=== PATIENT | female | born 1960 | race Caucasian/White ===

== ENCOUNTER 2016-08-18 12:05 | Outpatient (CLI) | payer BC ==
[~2016-08-18] VITALS: Ht 162.6 cm; Wt 110.2 kg
--- OUTSIDE RECORDS SUMMARY | 2016-08-18 12:08 | XMS REPORT | Continuity of Care Document ---
Author Author [facility] Organization [facility] Address Unknown Phone Unavailable Care Team Providers Care Financial Accountant Name Role Phone Asher Tinsley PCP [phone] Source Comments Some departments are not documenting in the electronic medical record. If you do not see the information that you expected, contact Release of Information in the Health Information Management department at [phone] for further assistance in locating additional records.[facility] Active Allergies and Adverse Reactions No Known Allergies Current Medications Prescription Sig. Disp. Refills Start End Date Status Date furosemide (LASIX) 40 mg Take 40 mg by mouth every Active tablet 12 hours. Indications: EDEMA lisinopril/hydrochlorothi Take by mouth daily. Active azide (ZESTORETIC) Indications: HTN/CHF 20/12.[address](+) Take 40 mg by mouth Active (PRILOSEC) 40 mg capsule daily. Indications: PREVENTION OF STRESS ULCER aspirin 81 mg chewable Take 324 mg by mouth Active tablet daily. Indications: PREVENTION OF TRANSIENT ISCHEMIC ATTACKS diltiazem CD (CARDIZEM Take 360 mg by mouth Active CD) 120 mg capsule daily. Indications: HYPERTENSION potassium chloride SR Take 20 mEq by mouth Active (K-DUR) 20 mEq tablet twice daily. Indications: HYPOKALEMIA PREVENTION sertraline (ZOLOFT) 50 mg Take 1 Tab by mouth 30 Tab 0 05/16/20 Active tablet daily. 15 traZODone (DESYREL) 50 mg Take 1 Tab by mouth at 30 Tab 1 05/16/20 Active tablet bedtime daily. 15 Active Problems Problem Noted Date Mood disorder (HCC) 05/09/2015 Social History Tobacco Use Types Packs/Day Years Used Date Never Smoker Alcohol Use Drinks/Week oz/Week Comments No Last Filed Vital Signs Vital Sign Reading Time Taken Blood Pressure 131/81 05/16/2015 8:00 AM VICE PRESIDENT OF CONSULTING SERVICES Pulse 62 05/16/2015 8:00 AM VICE PRESIDENT OF CONSULTING SERVICES Temperature 37 C (98.6 F) 05/16/2015 8:00 AM VICE PRESIDENT OF CONSULTING SERVICES Respiratory Rate - - Height 1.59 m (5' 2.6") 05/09/2015 8:00 PM CDT Weight 86.1 kg (189 lb 13.1 oz) 05/09/2015 8:00 PM CDT Body Mass Index 34.06 05/09/2015 8:00 PM CDT Oxygen Saturation 98% 05/16/2015 8:00 AM VICE PRESIDENT OF CONSULTING SERVICES Plan of Care Health Maintenance Due Date Last Done Comments Hepatitis C Screening 1959 Physical (Comprehensive) 1966 Exam Pertussis Vaccine 1970 Tetanus Vaccine 1976 Cervical Cancer Screening 1980 Breast Cancer Screening 1999 Colorectal Cancer 2009 Screening Influenza Vaccine 03/13/2016 Results from Last 3 Months Not on file
[2016-08-18] MEDS ORDERED: ASPI-586 PO (12:18)
[2016-08-18] MEDS ORDERED: SPIR25TA3 PO (12:18)
[2016-08-18] MEDS ORDERED: TRAZ-28 PO (12:18)
[2016-08-18] MEDS ORDERED: SERT100T8 PO (12:18)
[2016-08-18] MEDS ORDERED: LISI1TAB8 PO (12:18)
[2016-08-18] MEDS ORDERED: FURO40TA4 PO (12:18)
[2016-08-18] MEDS ORDERED: APIX5TAB PO (12:18)
[2016-08-18] MEDS ORDERED: OMEP40CA36 PO (12:18)
[2016-08-18] MEDS ORDERED: DILT360C29 PO (12:18)
[2016-08-18] MEDS ORDERED: CYCL5TAB PO (12:18)
[2016-08-18 12:22] VITALS: BP 122/41
[2016-08-18 13:07] LABS: BASOPHILS % (AUTO) 0 % (0-10); EOSINOPHILS # (AUTO) 0.2 10^3/uL (0.0-0.3); EOSINOPHILS % (AUTO) 2 % (0-10); LYMPHOCYTES # (AUTO) 0.9 X 10^3 (1.0-4.0); LYMPHOCYTES % (AUTO) 11 % (12-44); MEAN CORPUSCULAR HEMOGLOBIN 29 PG (25-34); MEAN CORPUSCULAR HGB CONC 33 G/DL (32-36); MEAN CORPUSCULAR VOLUME 90 FL (80-99); MEAN PLATELET VOLUME 10.5 FL (7.4-10.4); MONOCYTES # (AUTO) 0.6 X 10^3 (0.0-1.0); MONOCYTES % (AUTO) 7 % (0-12); NEUTROPHILS # (AUTO) 6.6 X 10^3 (1.8-7.8); NEUTROPHILS % (AUTO) 79 % (42-75); PLATELET COUNT 243 10^3/uL (130-400); RED BLOOD COUNT 3.98 10^6/uL (4.35-5.85); WHITE BLOOD COUNT 8.3 10^3/uL (4.3-11.0)
[2016-08-18 13:25] LABS: CALCIUM 9.1 MG/DL (8.5-10.1); CREATININE SERUM 1.53 MG/DL (0.60-1.30)
== END 2016-08-18 13:39 | disposition home or self-care (01) ==
LOC: PREOP 12:05
PROVIDERS: ATTEND Otolaryngology Otolaryngology/Facial Plastic Surgery
DX: Z01.812 Encounter for preprocedural laboratory examination (principal); Z11.2 Encounter for screening for other bacterial diseases; E04.1 Nontoxic single thyroid nodule
CPT/HCPCS: 36415; 80048; 85025; 87081

== ENCOUNTER 2016-08-29 06:25 | Day surgery (SDC) | payer BC ==
[~2016-08-29] VITALS: Ht 162.6 cm; Wt 110.2 kg
[~2016-08-29 06:25] MED LIST: APIX5TAB PO; ASPI-586 PO; CYCL5TAB PO; DILT360C29 PO; FURO40TA4 PO; LISI1TAB8 PO; OMEP40CA36 PO; SERT100T8 PO; SPIR25TA3 PO; TRAZ-28 PO
--- OUTSIDE RECORDS SUMMARY | 2016-08-29 06:32 | XMS REPORT | Continuity of Care Document ---
Author Author [facility] Organization [facility] Address Unknown Phone Unavailable Care Team Providers Care Boot And Shoe Laborer Name Role Phone Asher Tinsley PCP [phone] Source Comments Some departments are not documenting in the electronic medical record. If you do not see the information that you expected, contact Release of Information in the Health Information Management department at [phone] for further assistance in locating additional records.[facility] Active Allergies and Adverse Reactions No [...] Taken Blood Pressure 131/81 05/16/2015 8:00 AM DOCUMENT EXAMINER Pulse 62 05/16/2015 8:00 AM DOCUMENT EXAMINER Temperature 37 C (98.6 F) 05/16/2015 8:00 AM DOCUMENT EXAMINER Respiratory Rate - - Height 1.59 m (5' 2.6") 05/09/2015 8:00 PM CDT Weight 86.1 kg (189 lb 13.1 oz) 05/09/2015 8:00 PM CDT Body Mass Index 34.06 05/09/2015 8:00 PM CDT Oxygen Saturation 98% 05/16/2015 8:00 AM DOCUMENT EXAMINER Plan of Care Health Maintenance Due Date Last Done Comments Hepatitis C Screening 1959 Physical (Comprehensive) 1966 Exam Pertussis Vaccine 1970 Tetanus Vaccine 1976 Cervical Cancer Screening 1980 Breast Cancer Screening 1999 Colorectal Cancer 2009 Screening Influenza Vaccine 03/13/2016 Results from Last 3 Months Not on file
--- OUTSIDE RECORDS SUMMARY | 2016-08-29 06:34 | XMS REPORT | Continuity of Care Document ---
Author Author [facility] Organization [facility] Address Unknown Phone Unavailable Care Team Providers Care Caustic Strength Inspector Name Role Phone Asher Tinsley PCP [phone] Source Comments Some departments are not documenting in the electronic medical record. If you do not see the information that you expected, contact Release of Information in the Health Information Management department at [phone] for further assistance in locating additional records.[facility] Active Allergies and Adverse Reactions No [...] Taken Blood Pressure 131/81 05/16/2015 8:00 AM GEAR GRINDING MACHINE OPERATOR Pulse 62 05/16/2015 8:00 AM GEAR GRINDING MACHINE OPERATOR Temperature 37 C (98.6 F) 05/16/2015 8:00 AM GEAR GRINDING MACHINE OPERATOR Respiratory Rate - - Height 1.59 m (5' 2.6") 05/09/2015 8:00 PM CDT Weight 86.1 kg (189 lb 13.1 oz) 05/09/2015 8:00 PM CDT Body Mass Index 34.06 05/09/2015 8:00 PM CDT Oxygen Saturation 98% 05/16/2015 8:00 AM GEAR GRINDING MACHINE OPERATOR Plan of Care Health Maintenance Due Date Last Done Comments Hepatitis C Screening 1959 Physical (Comprehensive) 1966 Exam Pertussis Vaccine 1970 Tetanus Vaccine 1976 Cervical Cancer Screening 1980 Breast Cancer Screening 1999 Colorectal Cancer 2009 Screening Influenza Vaccine 03/13/2016 Results from Last 3 Months Not on file
--- NOTE | 2016-08-29 06:41 | Progress Note-Pre Operative ---
Pre-Operative Progress Note H&P Reviewed The H&P was reviewed, patient examined and no changes noted. Date H&P Reviewed: Aug 29, 2016 Time H&P Reviewed: 06:40 Pre-Operative Diagnosis: Left Thyroid Nodule MARIANNE MAC MD Aug 29, 2016 6:41 am
[2016-08-29 07:01] VITALS: BP 127/71
[2016-08-29] MEDS ORDERED: MIDAZOLAM 2 MG/2 ML (VERSED) VIAL ONE ×2 (07:08→08:24)
[2016-08-29] MEDS ORDERED: SCOPOLAMINE 1.5 MG (TRANSDERM-SCOP) PATCH ONE (07:09)
[2016-08-29] MEDS ORDERED: ONDANSETRON 4 MG/2 ML (SDV) Z0FRAN ONE ×2 (07:09→08:29)
[2016-08-29] MEDS ORDERED: FAMOTIDINE 20MG/2ML IV (PEPCID) ONE (07:09)
[2016-08-29] MEDS: LACTATED RINGERS 1,000 ML IV PRN ×2 (07:14→09:55)
[2016-08-29] MEDS ORDERED: SCOPOLAMINE 1.5 MG (TRANSDERM-SCOP) PATCH TOP ONE (07:15)
[2016-08-29] MEDS ORDERED: MIDAZOLAM 2 MG/2 ML (VERSED) VIAL IV ONE (07:15)
[2016-08-29] MEDS ORDERED: FAMOTIDINE 20MG/2ML IV (PEPCID) IV ONE (07:15)
[2016-08-29] MEDS ORDERED: ONDANSETRON 4 MG/2 ML (SDV) Z0FRAN IV ONE ×2 (07:15→11:00)
[2016-08-29] MEDS ORDERED: fentaNYL INJECTION 100 MCG/2 ML AMP ONE ×2 (08:24→09:49)
[2016-08-29] MEDS ORDERED: LIDOCAINE PF 2% 10 ML (XYLOCAINE) AMP ONE (08:29)
[2016-08-29] MEDS ORDERED: proPOfol 200 MG/20 ML (DIPRIVAN) VIAL IV ONE ×2 (08:29→10:49)
[2016-08-29] MEDS ORDERED: LACTATED RINGERS 1,000 ML IV ONE ×2 (08:29→11:02)
[2016-08-29] MEDS ORDERED: SUCCINYLCHOLINE INJ 100 MG/5 ML SYR ONE (08:29)
[2016-08-29] MEDS ORDERED: DEXAMETHASONE PF 10 MG/ML (DECADRON) VIAL ONE (08:29)
[2016-08-29] MEDS ORDERED: LIDOCAINE/EPI 1%-1:100,000 (XYLOCAINE) 20ML ONE (08:33)
[2016-08-29] MEDS ORDERED: ROCURONIUM 50 MG/5 ML (ZEMURON) VIAL IV ONE (08:42)
[2016-08-29] MEDS ORDERED: morphine INJ 10 MG/ML 1ML (SYR OR VIAL) ONE (10:22)
[2016-08-29] MEDS ORDERED: MUPIROCIN 2% OINT 22 GM (BACTROBAN) TUBE ONE (10:41)
[2016-08-29] MEDS ORDERED: D5 1/2 NS W/KCL 20 MEQ/L 1,000 ML IV SCH (10:44)
--- NOTE | 2016-08-29 10:44 | Progress Note-Post Operative ---
Post-Operative Progess Note Pre-Operative Diagnosis Left Thyroid Nodule Post-Operative Diagnosis same Post-Op Procedure Note Date of Procedure: Aug 29, 2016 Name of Procedure: Left Thyroid Lobectomy Anesthesia Type get Estimated blood loss (mL): minimal Specimen(s) collected Left Thryoid Lobectomey-frozen no malignancy seen on frozen MARIANNE MAC MD Aug 29, 2016 10:44 am
[2016-08-29] MEDS ORDERED: MEPERIDINE (DEMEROL) INJ 50 MG/ML IM PRN (10:45)
[2016-08-29] MEDS ORDERED: ACETAMINOPHEN 500 MG TAB (TYLENOL) PO PRN (10:45)
[2016-08-29] MEDS ORDERED: ONDANSETRON 4 MG/2 ML (SDV) Z0FRAN IV PRN (10:45)
[2016-08-29] MEDS ORDERED: SEVOFLURANE (ULTANE) 15 ML INHAL SOLN ONE (10:48)
[2016-08-29] MEDS ORDERED: PHENYLEPHRINE 100 MCG/ML 10 ML (ANESTHESIA) SYR ONE (10:50)
[2016-08-29] MEDS ORDERED: fentaNYL INJECTION 100 MCG/2 ML AMP IV PRN (11:00)
[2016-08-29] MEDS: morphine INJ 10 MG/ML 1ML (SYR OR VIAL) IV PRN ×2 (11:25→11:30)
[2016-08-29 13:00] VITALS: BP 120/74
[2016-08-29 15:40] VITALS: BP 108/59
[2016-08-29 19:34] VITALS: BP 113/66
[2016-08-29] MEDS: HYDROcodone/APAP 5 MG/325 MG (LORTAB) TAB PO PRN (22:58)
[2016-08-30] VITALS: BP 124/61
[2016-08-30 04:00] VITALS: BP 104/53
--- NOTE | 2016-08-30 06:11 | Progress Note-Standard ---
Standard Progress Note Progress Notes/Assess & Plan Progress/Assessment & Plan ENT-Onesimo Doing Well Drain dc'ed-minimal drainage Calcium-98.5 voice normal/ swallowing without difficulty Will discharge after [id number] week ft [facility] Discharge prescriptions in chart Final Diagnosis Left Thyroid Lobectomy-pathology pending MARIANNE MAC MD Aug 30, 2016 6:11 am
[2016-08-30] MEDS: HYDROcodone/APAP 5 MG/325 MG (LORTAB) TAB PO PRN (07:52)
[2016-08-30 08:00] VITALS: BP 121/58
[2016-08-30] MEDS ORDERED: HYDR-3812 PO (10:06)
[2016-08-30 10:33] VITALS: BP 121/58
== END 2016-08-30 10:39 | disposition home or self-care (01) ==
LOC: SDC 06:25 → 4TH 13:25 → SDC 08-30 10:39
PROVIDERS: ATTEND Otolaryngology Otolaryngology/Facial Plastic Surgery
DX: C73 Malignant neoplasm of thyroid gland (principal)
CPT/HCPCS: 36415; 82310; 88307; 88331

== ENCOUNTER 2016-09-12 10:00 | Outpatient (CLI) | payer BC ==
--- OUTSIDE RECORDS SUMMARY | 2016-09-11 05:54 | XMS REPORT | Continuity of Care Document ---
Author Author [facility] Organization [facility] Address Unknown Phone Unavailable Care Team Providers Care Inspector Radar And Electronics Name Role Phone Asher Tinsley PCP [phone] Source Comments Some departments are not documenting in the electronic medical record. If you do not see the information that you expected, contact Release of Information in the Health Information Management department at [phone] for further assistance in locating additional records.St. [...] Taken Blood Pressure 131/81 05/16/2015 8:00 AM PERFORMANCE IMPROVEMENT ANALYST Pulse 62 05/16/2015 8:00 AM PERFORMANCE IMPROVEMENT ANALYST Temperature 37 C (98.6 F) 05/16/2015 8:00 AM PERFORMANCE IMPROVEMENT ANALYST Respiratory Rate - - Height 1.59 m (5' 2.6") 05/09/2015 8:00 PM CDT Weight 86.1 kg (189 lb 13.1 oz) 05/09/2015 8:00 PM CDT Body Mass Index 34.06 05/09/2015 8:00 PM CDT Oxygen Saturation 98% 05/16/2015 8:00 AM PERFORMANCE IMPROVEMENT ANALYST Plan of Care Health Maintenance Due Date Last Done Comments Hepatitis C Screening 1959 Physical (Comprehensive) 1966 Exam Pertussis Vaccine 1970 Tetanus Vaccine 1976 Cervical Cancer Screening 1980 Breast Cancer Screening 1999 Colorectal Cancer 2009 Screening Influenza Vaccine 03/13/2016 Results from Last 3 Months Not on file
[~2016-09-12] VITALS: Ht 162.6 cm; Wt 110.2 kg
[~2016-09-12 10:00] MED LIST changes: +HYDR-3812 PO
--- OUTSIDE RECORDS SUMMARY | 2016-09-12 10:06 | XMS REPORT | Continuity of Care Document ---
Author Author [facility] Organization [facility] Address Unknown Phone Unavailable Care Team Providers Care Dyed Raw Stock Blower Feeder Name Role Phone Asher Tinsley PCP [phone] Source Comments Some departments are not documenting in the electronic medical record. If you do not see the information that you expected, contact Release of Information in the Health Information Management department at [phone] for further assistance in locating additional records.[facility] Active Allergies and Adverse Reactions No Known [...] Taken Blood Pressure 131/81 05/16/2015 8:00 AM DIRECTOR APPAREL Pulse 62 05/16/2015 8:00 AM DIRECTOR APPAREL Temperature 37 C (98.6 F) 05/16/2015 8:00 AM DIRECTOR APPAREL Respiratory Rate - - Height 1.59 m (5' 2.6") 05/09/2015 8:00 PM CDT Weight 86.1 kg (189 lb 13.1 oz) 05/09/2015 8:00 PM CDT Body Mass Index 34.06 05/09/2015 8:00 PM CDT Oxygen Saturation 98% 05/16/2015 8:00 AM DIRECTOR APPAREL Plan of Care Health Maintenance Due Date Last Done Comments Hepatitis C Screening 1959 Physical (Comprehensive) 1966 Exam Pertussis Vaccine 1970 Tetanus Vaccine 1976 Cervical Cancer Screening 1980 Breast Cancer Screening 1999 Colorectal Cancer 2009 Screening Influenza Vaccine 03/13/2016 Results from Last 3 Months Not on file
== END 2016-09-12 10:12 ==
LOC: PREOP 10:00
PROVIDERS: ATTEND Otolaryngology Otolaryngology/Facial Plastic Surgery
DX: Z01.818 Encounter for other preprocedural examination (principal); E04.1 Nontoxic single thyroid nodule

== ENCOUNTER 2016-09-18 06:47 | Day surgery (SDC) | payer BC ==
[~2016-09-18] VITALS: Ht 162.6 cm; Wt 110.2 kg
--- OUTSIDE RECORDS SUMMARY | 2016-09-18 06:50 | XMS REPORT | Continuity of Care Document ---
Author Author [facility] Organization [facility] Address Unknown Phone Unavailable Care Team Providers Care Qc Manager Name Role Phone Asher Tinsley PCP [phone] Source Comments Some departments are not documenting in the electronic medical record. If you do not see the information that you expected, contact Release of Information in the Health Information Management department at [phone] for further assistance in locating additional records.[facility] Active Allergies and Adverse Reactions [...] Taken Blood Pressure 131/81 05/16/2015 8:00 AM SERGING MACHINE OPERATOR AUTOMATIC Pulse 62 05/16/2015 8:00 AM SERGING MACHINE OPERATOR AUTOMATIC Temperature 37 C (98.6 F) 05/16/2015 8:00 AM SERGING MACHINE OPERATOR AUTOMATIC Respiratory Rate - - Height 1.59 m (5' 2.6") 05/09/2015 8:00 PM CDT Weight 86.1 kg (189 lb 13.1 oz) 05/09/2015 8:00 PM CDT Body Mass Index 34.06 05/09/2015 8:00 PM CDT Oxygen Saturation 98% 05/16/2015 8:00 AM SERGING MACHINE OPERATOR AUTOMATIC Plan of Care Health Maintenance Due Date Last Done Comments Hepatitis C Screening 1959 Physical (Comprehensive) 1966 Exam Pertussis Vaccine 1970 Tetanus Vaccine 1976 Cervical Cancer Screening 1980 Breast Cancer Screening 1999 Colorectal Cancer 2009 Screening Influenza Vaccine 03/13/2016 Results from Last 3 Months Not on file
--- OUTSIDE RECORDS SUMMARY | 2016-09-18 06:50 | XMS REPORT | Continuity of Care Document ---
Author Author [facility] Organization [facility] Address Unknown Phone Unavailable Care Team Providers Care Neonatal Specialist Name Role Phone Asher Tinsley PCP [phone] Source Comments Some departments are not documenting in the electronic medical record. If you do not see the information that you expected, contact Release of Information in the Health Information Management department at [phone] for further assistance in locating additional records.[facility] Active Allergies and Adverse Reactions No [...] Taken Blood Pressure 131/81 05/16/2015 8:00 AM SUPERVISOR PRECISION OPTICAL ELEMENTS Pulse 62 05/16/2015 8:00 AM SUPERVISOR PRECISION OPTICAL ELEMENTS Temperature 37 C (98.6 F) 05/16/2015 8:00 AM SUPERVISOR PRECISION OPTICAL ELEMENTS Respiratory Rate - - Height 1.59 m (5' 2.6") 05/09/2015 8:00 PM CDT Weight 86.1 kg (189 lb 13.1 oz) 05/09/2015 8:00 PM CDT Body Mass Index 34.06 05/09/2015 8:00 PM CDT Oxygen Saturation 98% 05/16/2015 8:00 AM SUPERVISOR PRECISION OPTICAL ELEMENTS Plan of Care Health Maintenance Due Date Last Done Comments Hepatitis C Screening 1959 Physical (Comprehensive) 1966 Exam Pertussis Vaccine 1970 Tetanus Vaccine 1976 Cervical Cancer Screening 1980 Breast Cancer Screening 1999 Colorectal Cancer 2009 Screening Influenza Vaccine 03/13/2016 Results from Last 3 Months Not on file
[2016-09-18 08:03] VITALS: BP 144/81
[2016-09-18] MEDS ORDERED: LIDOCAINE/EPI 1%-1:100,000 (XYLOCAINE) 20ML ONE (08:17)
[2016-09-18] MEDS ORDERED: MUPIROCIN 2% OINT 22 GM (BACTROBAN) TUBE ONE (08:17)
[2016-09-18] MEDS ORDERED: MIDAZOLAM 2 MG/2 ML (VERSED) VIAL ONE (08:29)
[2016-09-18] MEDS ORDERED: MIDAZOLAM 2 MG/2 ML (VERSED) VIAL IV ONE (08:30)
[2016-09-18] MEDS ORDERED: ONDANSETRON 4 MG/2 ML (SDV) Z0FRAN IV ONE ×2 (08:30→11:15)
[2016-09-18] MEDS ORDERED: FAMOTIDINE 20MG/2ML IV (PEPCID) IV ONE (08:30)
[2016-09-18] MEDS ORDERED: SCOPOLAMINE 1.5 MG (TRANSDERM-SCOP) PATCH TOP ONE (08:30)
[2016-09-18] MEDS: LACTATED RINGERS 1,000 ML IV PRN ×2 (08:34→09:55)
[2016-09-18] MEDS ORDERED: proPOfol 200 MG/20 ML (DIPRIVAN) VIAL IV ONE ×2 (08:38→10:32)
[2016-09-18] MEDS ORDERED: SUCCINYLCHOLINE INJ 100 MG/5 ML SYR ONE (08:38)
[2016-09-18] MEDS ORDERED: ONDANSETRON 4 MG/2 ML (SDV) Z0FRAN ONE (08:38)
[2016-09-18] MEDS ORDERED: SEVOFLURANE (ULTANE) 15 ML INHAL SOLN ONE (08:38)
[2016-09-18] MEDS ORDERED: ROCURONIUM 50 MG/5 ML (ZEMURON) VIAL IV ONE (08:38)
[2016-09-18] MEDS ORDERED: DEXAMETHASONE PF 10 MG/ML (DECADRON) VIAL ONE (08:38)
[2016-09-18] MEDS ORDERED: LIDOCAINE PF 2% 10 ML (XYLOCAINE) AMP ONE (08:38)
[2016-09-18] MEDS ORDERED: LACTATED RINGERS 1,000 ML IV ONE ×2 (08:38→10:32)
[2016-09-18] MEDS ORDERED: fentaNYL INJECTION 250 MCG/5 ML AMP ONE (08:38)
--- NOTE | 2016-09-18 08:48 | Progress Note-Pre Operative ---
Pre-Operative Progress Note H&P Reviewed The H&P was reviewed, patient examined and no changes noted. Date H&P Reviewed: Sep 18, 2016 Time H&P Reviewed: 08:00 Pre-Operative Diagnosis: Papillary Carcinoma of Thyroid MARIANNE MAC MD Sep 18, 2016 8:48 am
[2016-09-18] MEDS ORDERED: morphine INJ 10 MG/ML 1ML (SYR OR VIAL) ONE (10:29)
[2016-09-18] MEDS ORDERED: PHENYLEPHRINE INJ 10 MG/ML (NEO-SYNEPHRINE 1%) ONE (10:32)
[2016-09-18] MEDS ORDERED: D5 1/2 NS W/KCL 20 MEQ/L 1,000 ML IV SCH (10:38)
--- NOTE | 2016-09-18 10:38 | Progress Note-Post Operative ---
Post-Operative Progess Note Pre-Operative Diagnosis Papillary Carcinoma of Thyroid Post-Operative Diagnosis same Post-Op Procedure Note Date of Procedure: Sep 18, 2016 Name of Procedure: Completion Thyroidectomy Anesthesia Type get Estimated blood loss (mL): less than 50cc Specimen(s) collected Right Thyriod Lobe and REmaining Isthmus MARIANNE MAC MD Sep 18, 2016 10:38 am
[2016-09-18] MEDS ORDERED: ONDANSETRON 4 MG/2 ML (SDV) Z0FRAN IV PRN (10:45)
[2016-09-18] MEDS ORDERED: ACETAMINOPHEN 500 MG TAB (TYLENOL) PO PRN (10:45)
[2016-09-18] MEDS ORDERED: HYDROmorphone (DILAUDID) 2 MG/ML VIAL IV PRN (11:15)
[2016-09-18] MEDS ORDERED: fentaNYL INJECTION 100 MCG/2 ML AMP IV PRN (11:15)
[2016-09-18] MEDS: morphine INJ 10 MG/ML 1ML (SYR OR VIAL) IV PRN ×2 (11:18→11:26)
[2016-09-18 11:55] VITALS: BP 136/85
[2016-09-18] MEDS: HYDROcodone/APAP 5 MG/325 MG (LORTAB) TAB PO PRN (12:13)
[2016-09-18] MEDS: MEPERIDINE (DEMEROL) INJ 50 MG/ML IM PRN ×2 (13:32→21:29)
[2016-09-18] MEDS ORDERED: APIX5TAB PO (13:51)
[2016-09-18] MEDS ORDERED: TRAZ100T92 PO (13:51)
[2016-09-18 16:33] VITALS: BP 120/79
--- NOTE | 2016-09-18 19:00 | Progress Note-Standard ---
Standard Progress Note Progress Notes/Assess & Plan Progress/Assessment & Plan ENT-Onesimo Doing well-voice normal/swallowing without difficulty Drain-minimal drainage Clcium-8.6 will observe toinght-plan on home in am after drain d/vick wii recheck calcium in am as well Final Diagnosis Papillary carcinoma of Thyroid MARIANNE MAC MD Sep 18, 2016 7:00 pm
[2016-09-18 20:00] VITALS: BP 146/85
[2016-09-19] MEDS: HYDROcodone/APAP 5 MG/325 MG (LORTAB) TAB PO PRN (00:43)
[2016-09-19 00:49] VITALS: BP 134/86
[2016-09-19 04:00] VITALS: BP 137/74
[2016-09-19] MEDS: MEPERIDINE (DEMEROL) INJ 50 MG/ML IM PRN (06:16)
--- NOTE | 2016-09-19 06:39 | Progress Note-Standard ---
Standard Progress Note Progress Notes/Assess & Plan Progress/Assessment & Plan ENT-Onesimo Doing well-voice normal/swallowing without difficulty Drain-minimal drainage Clcium-8.6 will observe toinght-plan on home in am after drain d/vick wii recheck calcium in am as well ENTMichele Doing well Minimal drainage drain dc'ed incision dry flat-no infection will discharge after breakfast RTC-next thrusday in [facility] for suture removal Discharge prescriptions in chart MARIANNE MAC MD Sep 19, 2016 6:39 am
[2016-09-19 08:00] VITALS: BP 143/85
== END 2016-09-19 11:04 | disposition home or self-care (01) ==
LOC: SDC 06:47 → 4TH 11:55 → SDC 09-19 11:04
PROVIDERS: ATTEND Otolaryngology Otolaryngology/Facial Plastic Surgery
DX: C73 Malignant neoplasm of thyroid gland (principal)
CPT/HCPCS: 36415; 82310; 88307

== ENCOUNTER → 2016-10-21 | Outpatient (CLI) | payer BC ==
[~2016-10-21] MED LIST changes: +TRAZ100T92 PO
== END ==
LOC: FS 13:49
PROVIDERS: ATTEND Internal Medicine Hematology & Oncology
DX: C73 Malignant neoplasm of thyroid gland (principal); I48.91 Unspecified atrial fibrillation; I10 Essential (primary) hypertension; E78.00 Pure hypercholesterolemia, unspecified; Z80.0 Family history of malignant neoplasm of digestive organs; Z80.1 Family history of malignant neoplasm of trachea, bronchus and lung; Z79.01 Long term (current) use of anticoagulants; Z79.899 Other long term (current) drug therapy
CPT/HCPCS: 99214

== ENCOUNTER 2016-12-02 14:02 | Outpatient (RCR) | payer BC ==
[2016-10-10 11:03] LABS: BASOPHILS % (AUTO) 0 % (0-10); EOSINOPHILS % (AUTO) 0 % (0-10); LYMPHOCYTES % (AUTO) 13 % (12-44); MEAN CORPUSCULAR HEMOGLOBIN 29 PG (25-34); MEAN CORPUSCULAR HGB CONC 32 G/DL (32-36); MEAN CORPUSCULAR VOLUME 90 FL (80-99); MEAN PLATELET VOLUME 10.7 FL (7.4-10.4); MONOCYTES # (AUTO) 0.4 X 10^3 (0.0-1.0); MONOCYTES % (AUTO) 5 % (0-12); NEUTROPHILS # (AUTO) 6.3 X 10^3 (1.8-7.8); NEUTROPHILS % (AUTO) 82 % (42-75); PLATELET COUNT 211 10^3/uL (130-400); RED BLOOD COUNT 4.02 10^6/uL (4.35-5.85); RED CELL DISTRIBUTION WIDTH 14.3 % (10.0-14.5); WHITE BLOOD COUNT 7.7 10^3/uL (4.3-11.0)
[2016-10-10 11:27] LABS: ALBUMIN 4.2 G/DL (3.2-4.5); BILIRUBIN,TOTAL 0.5 MG/DL (0.1-1.0); CALCIUM 9.4 MG/DL (8.5-10.1); CREATININE SERUM 1.61 MG/DL (0.60-1.30); POTASSIUM 4.2 MMOL/L (3.6-5.0); TOTAL PROTEIN 7.8 G/DL (6.4-8.2)
[2016-10-10 11:46] LABS: THYROID STIMULATING HORMONE 4.28 UIU/ML (0.35-4.94)
[2016-10-12 07:12] LABS: THYROGLOBULIN LEVELC 7.66 ng/mL (1.60-59.90)
[2016-10-13 16:32] LABS: THYROGLOBULIN AUTOANTIBODY PT 0.08 Units (0.00-0.50)
[2016-12-04 07:53] LABS: THYROGLOBULIN LEVELC 13.4 ng/mL (1.60-59.90)
[2016-12-04 07:54] LABS: THYROGLOBULIN AUTOANTIBODY PT 0.08 Units (0.00-0.50)
== END 2017-01-08 | disposition home or self-care (01) ==
LOC: ONC 14:02
PROVIDERS: ATTEND Internal Medicine Hematology & Oncology
DX: C73 Malignant neoplasm of thyroid gland (principal)
CPT/HCPCS: 36415; 80053; 84432; 84443; 85025; 86800; 99214

== ENCOUNTER → 2016-12-02 | Outpatient (CLI) | payer BC | LOC: CARD 12:51 | PROVIDERS: ATTEND Radiology Radiation Oncology | DX: C73 Malignant neoplasm of thyroid gland (principal) | CPT/HCPCS: 79005 ==

== ENCOUNTER → 2017-01-06 | Outpatient (CLI) | payer BC | LOC: FS 10:39 | PROVIDERS: ATTEND Internal Medicine Hematology & Oncology | DX: C73 Malignant neoplasm of thyroid gland (principal); I48.91 Unspecified atrial fibrillation; I10 Essential (primary) hypertension; E78.00 Pure hypercholesterolemia, unspecified; Z80.0 Family history of malignant neoplasm of digestive organs; Z80.1 Family history of malignant neoplasm of trachea, bronchus and lung; Z79.01 Long term (current) use of anticoagulants; Z79.899 Other long term (current) drug therapy | CPT/HCPCS: 99213 ==

== ENCOUNTER 2017-04-02 13:07 | Outpatient (RCR) | payer BC ==
[2017-04-02 13:57] LABS: BASOPHILS % (AUTO) 0 % (0-10); EOSINOPHILS # (AUTO) 0.2 10^3/uL (0.0-0.3); EOSINOPHILS % (AUTO) 3 % (0-10); LYMPHOCYTES # (AUTO) 0.8 X 10^3 (1.0-4.0); LYMPHOCYTES % (AUTO) 10 % (12-44); MEAN CORPUSCULAR HEMOGLOBIN 29 PG (25-34); MEAN CORPUSCULAR HGB CONC 32 G/DL (32-36); MEAN CORPUSCULAR VOLUME 93 FL (80-99); MEAN PLATELET VOLUME 9.2 FL (7.4-10.4); MONOCYTES # (AUTO) 0.5 X 10^3 (0.0-1.0); MONOCYTES % (AUTO) 6 % (0-12); NEUTROPHILS # (AUTO) 5.8 X 10^3 (1.8-7.8); NEUTROPHILS % (AUTO) 80 % (42-75); PLATELET COUNT 210 10^3/uL (130-400); RED BLOOD COUNT 3.67 10^6/uL (4.35-5.85); RED CELL DISTRIBUTION WIDTH 14.1 % (10.0-14.5); WHITE BLOOD COUNT 7.3 10^3/uL (4.3-11.0)
[2017-04-02 14:33] LABS: ALBUMIN 4.1 GM/DL (3.2-4.5); BILIRUBIN,TOTAL 0.4 MG/DL (0.1-1.0); CALCIUM 9.4 MG/DL (8.5-10.1); CREATININE SERUM 1.59 MG/DL (0.60-1.30); POTASSIUM 3.9 MMOL/L (3.6-5.0); TOTAL PROTEIN 7.6 GM/DL (6.4-8.2)
[2017-04-06 08:55] LABS: THYROGLOBULIN AUTOANTIBODY PT 0.02 Units (0.00-0.50)
[2017-04-07 07:34] LABS: THYROGLOBULIN LEVELC 0.3 ng/mL (1.60-59.90)
== END 2017-04-11 | disposition home or self-care (01) ==
LOC: ONC 13:07
PROVIDERS: ATTEND Internal Medicine Hematology & Oncology
DX: C73 Malignant neoplasm of thyroid gland (principal); I48.91 Unspecified atrial fibrillation; I10 Essential (primary) hypertension; E78.00 Pure hypercholesterolemia, unspecified; Z80.0 Family history of malignant neoplasm of digestive organs; Z80.1 Family history of malignant neoplasm of trachea, bronchus and lung; Z79.01 Long term (current) use of anticoagulants; Z79.899 Other long term (current) drug therapy
CPT/HCPCS: 36415; 80053; 84432; 85025; 86800; 99213

== ENCOUNTER 2017-06-30 12:39 | Outpatient (RCR) | payer BC ==
[~2017-06-30 12:39] MED LIST changes: +ACHD5005 PO; -HYDR-3812 PO
[2017-06-30 13:09] LABS: BASOPHILS % (AUTO) 0 % (0-10); EOSINOPHILS # (AUTO) 0.2 10^3/uL (0.0-0.3); EOSINOPHILS % (AUTO) 3 % (0-10); HEMATOCRIT 35 % (35-52); LYMPHOCYTES % (AUTO) 12 % (12-44); MEAN CORPUSCULAR HEMOGLOBIN 29 PG (25-34); MEAN CORPUSCULAR HGB CONC 31 G/DL (32-36); MEAN CORPUSCULAR VOLUME 92 FL (80-99); MONOCYTES # (AUTO) 0.4 X 10^3 (0.0-1.0); MONOCYTES % (AUTO) 5 % (0-12); NEUTROPHILS # (AUTO) 6.8 X 10^3 (1.8-7.8); NEUTROPHILS % (AUTO) 81 % (42-75); PLATELET COUNT 246 10^3/uL (130-400); RED BLOOD COUNT 3.81 10^6/uL (4.35-5.85); RED CELL DISTRIBUTION WIDTH 14.4 % (10.0-14.5); WHITE BLOOD COUNT 8.4 10^3/uL (4.3-11.0)
[2017-06-30 13:28] LABS: ALBUMIN 4.1 GM/DL (3.2-4.5); BILIRUBIN,TOTAL 0.2 MG/DL (0.1-1.0); CALCIUM 9.4 MG/DL (8.5-10.1); CREATININE SERUM 1.73 MG/DL (0.60-1.30); POTASSIUM 3.9 MMOL/L (3.6-5.0); TOTAL PROTEIN 7.4 GM/DL (6.4-8.2)
== END 2017-09-28 | disposition home or self-care (01) ==
LOC: ONC 12:39
PROVIDERS: ATTEND Internal Medicine Hematology & Oncology
DX: C73 Malignant neoplasm of thyroid gland (principal); I48.91 Unspecified atrial fibrillation; I10 Essential (primary) hypertension; E78.00 Pure hypercholesterolemia, unspecified; Z80.0 Family history of malignant neoplasm of digestive organs; Z80.1 Family history of malignant neoplasm of trachea, bronchus and lung; Z79.01 Long term (current) use of anticoagulants; Z79.899 Other long term (current) drug therapy
CPT/HCPCS: 36415; 80053; 84432; 84443; 85025; 99213

== ENCOUNTER 2017-10-05 12:25 | Outpatient (RCR) | payer OTHER, BC ==
[2017-10-05 12:50] LABS: BASOPHILS % (AUTO) 0 % (0-10); EOSINOPHILS # (AUTO) 0.2 10^3/uL (0.0-0.3); EOSINOPHILS % (AUTO) 3 % (0-10); HEMATOCRIT 35 % (35-52); LYMPHOCYTES # (AUTO) 0.6 X 10^3 (1.0-4.0); LYMPHOCYTES % (AUTO) 8 % (12-44); MEAN CORPUSCULAR HEMOGLOBIN 29 PG (25-34); MEAN CORPUSCULAR HGB CONC 32 G/DL (32-36); MEAN CORPUSCULAR VOLUME 92 FL (80-99); MEAN PLATELET VOLUME 10.4 FL (7.4-10.4); MONOCYTES # (AUTO) 0.5 X 10^3 (0.0-1.0); MONOCYTES % (AUTO) 7 % (0-12); NEUTROPHILS % (AUTO) 81 % (42-75); PLATELET COUNT 174 10^3/uL (130-400); RED BLOOD COUNT 3.77 10^6/uL (4.35-5.85); RED CELL DISTRIBUTION WIDTH 14.2 % (10.0-14.5); WHITE BLOOD COUNT 7.4 10^3/uL (4.3-11.0)
[2017-10-05 13:22] LABS: BILIRUBIN,TOTAL 0.4 MG/DL (0.1-1.0); CALCIUM 8.7 MG/DL (8.5-10.1); CREATININE SERUM 1.3 MG/DL (0.60-1.30); POTASSIUM 3.9 MMOL/L (3.6-5.0); TOTAL PROTEIN 6.8 GM/DL (6.4-8.2)
[2017-10-23] MEDS ORDERED: DILT180C90 PO (14:17)
[2017-10-23] MEDS ORDERED: LEVO175T5 PO (14:17)
[2017-10-23] MEDS ORDERED: METO200T48 PO (14:17)
[2017-10-23] MEDS ORDERED: ASPI-586 PO (14:17)
[2017-10-23] MEDS ORDERED: DABI150C5 PO (15:18)
[2017-12-22] MEDS ORDERED: METO-395 PO (17:59)
== END 2017-12-30 14:43 | disposition home or self-care (01) ==
LOC: ONC 12:25
PROVIDERS: ATTEND Internal Medicine Hematology & Oncology
DX: C73 Malignant neoplasm of thyroid gland (principal); I48.91 Unspecified atrial fibrillation; I10 Essential (primary) hypertension; E78.00 Pure hypercholesterolemia, unspecified; Z80.0 Family history of malignant neoplasm of digestive organs; Z80.1 Family history of malignant neoplasm of trachea, bronchus and lung; Z79.01 Long term (current) use of anticoagulants; Z79.899 Other long term (current) drug therapy
CPT/HCPCS: 80053; 84432; 84443; 85025; 99213

== ENCOUNTER → 2017-10-07 | Outpatient (CLI) | payer SELFPAY | LOC: CARD 11:28 | PROVIDERS: ATTEND Nurse Practitioner Family | DX: I48.0 Paroxysmal atrial fibrillation (principal); R00.2 Palpitations; I10 Essential (primary) hypertension; R53.1 Weakness; R53.83 Other fatigue; E66.01 Morbid (severe) obesity due to excess calories | CPT/HCPCS: 93225; 93226 ==

== ENCOUNTER 2017-10-23 12:41 | Day surgery (SDC) | payer OTHER ==
[~2017-10-23] VITALS: Ht 162.6 cm; Wt 115.9 kg
[2017-10-23] VITALS (15 sets, daily range): BP systolic 115–193; BP diastolic 54–110
[~2017-10-23 12:41] MED LIST changes: -SPIR25TA3 PO; +SPIR25TA5 PO; +TRAZ-189 PO; +TRAZ-190 PO; -TRAZ-28 PO; -TRAZ100T92 PO
[2017-10-23] MEDS ORDERED: NS IV 1000 ML 1,000 ML IV SCH ×2 (13:05→13:15)
[2017-10-23] MEDS ORDERED: HEParin (CATH LAB) 2,000 ML IV ONE (13:10)
[2017-10-23 13:31] LABS: HEMOGLOBIN 11.8 G/DL (11.5-16.0); MEAN PLATELET VOLUME 10.9 FL (7.4-10.4); RED BLOOD COUNT 4.06 10^6/uL (4.35-5.85); RED CELL DISTRIBUTION WIDTH 14.5 % (10.0-14.5); WHITE BLOOD COUNT 8.7 10^3/uL (4.3-11.0)
[2017-10-23 13:39] LABS: PROTHROMBIN TIME PATIENT 13.3 SEC (12.2-14.7)
[2017-10-23 13:50] LABS: ALBUMIN 4.4 GM/DL (3.2-4.5); BILIRUBIN,TOTAL 0.6 MG/DL (0.1-1.0); CALCIUM 9.2 MG/DL (8.5-10.1); CREATININE SERUM 1.35 MG/DL (0.60-1.30); MAGNESIUM 2.1 MG/DL (1.8-2.4); POTASSIUM 4.1 MMOL/L (3.6-5.0); TOTAL PROTEIN 7.5 GM/DL (6.4-8.2)
[2017-10-23] MEDS ORDERED: ASPI-586 PO (14:17)
[2017-10-23] MEDS ORDERED: METO200T48 PO (14:17)
[2017-10-23] MEDS ORDERED: DILT180C90 PO (14:17)
[2017-10-23] MEDS ORDERED: LEVO175T5 PO (14:17)
[2017-10-23] MEDS ORDERED: diphenhydrAMINE 50 MG/ML INJ (BENADRYL) ONE (14:37)
[2017-10-23] MEDS ORDERED: MIDAZOLAM 5 MG/5 ML (VERSED) VIAL ONE (14:37)
[2017-10-23] MEDS ORDERED: fentaNYL INJECTION 100 MCG/2 ML AMP ONE (14:37)
[2017-10-23] MEDS ORDERED: DABI150C5 PO (15:18)
[2017-10-23] MEDS ORDERED: LIDOCAINE 1% INJ 50 ML (XYLOCAINE) VIAL ONE (15:19)
[2017-10-23] MEDS ORDERED: NS IV 1000 ML 1,000 ML ONE (15:43)
[2017-10-23] MEDS ORDERED: PATIENT MAY USE OWN MEDS, ALL PO SCH (16:15)
[2017-10-23] MEDS ORDERED: NON-FORMULARY MEDICATION 1 EA EA (Cyclobenzaprine HCl 5 MG) PO PRN (16:15)
[2017-10-23] MEDS: NS IV 1000 ML 1,000 ML IV SCH (16:15)
--- NOTE | 2017-10-23 16:15 | Cardiac Procedure Note-CS/ASA ---
Pre-Procedure Note Pre-Op Procedure Note H&P Reviewed The H&P was reviewed, patient examined and no changes noted. Date H&P Reviewed: Oct 23, 2017 Time H&P Reviewed: 15:10 Conscious Sedation Pre-Proced Time Reviewed: 15:10 ASA Class: 3 Airway Mallampati Classification: ([place] appropriate class) I. II. III, IV Lungs Heart ASA score ASA 1: a normal healthy patient ASA 2: a patient with a mild systemic disease (mid diabetes, controlled hypertension, obesity ASA 3: a patient with a severe systemic disease that limits activity (angina , COPD, prior Myocardial infarction) ASA 4: a patient with an incapacitating disease that is a constant threat to life (CHF, renal failure) ASA 5: a moribund patient not expected to survive 24 hrs. (ruptured aneurysm) ASA 6: a declared brain patient whose organs are being harvested. For emergent operations, add the letter E after the classification Grade 3 Sedation Plan: Analgesia, Amnesia, Plan communicated to team members, Discussed options with patient/fam, Discussed risks with patient/fam Note The patient is an appropriate candidate to undergo the planned procedure, sedation, and anesthesia. The patient immediately re-assessed prior to indication. LC PATTON MD FACP FAC CCDS Oct 23, 2017 16:15
[2017-10-23] MEDS ORDERED: ACETAMINOPHEN 325 MG TABLET PO PRN (16:30)
[2017-10-23] MEDS ORDERED: DILTIAZEM 240 MG (CARDIZEM CD) CAP PO NR (17:00)
[2017-10-23] MEDS ORDERED: METOPROLOL SUCC PO SCH (17:30)
[2017-10-23] MEDS ORDERED: CYCLOBENZAPRINE 5 MG TAB PO PRN (17:45)
[2017-10-23] MEDS: DABIGATRAN 150 MG (PRADAXA) CAPSULE PO SCH (20:44)
[2017-10-24] VITALS: BP 135/73
--- NOTE | 2017-10-24 00:47 | CARDIAC CATHETERIZATION ---
DATE OF SERVICE: 10/23/2017 HISTORY OF PRESENT ILLNESS: The patient is a 57-year-old lady who has been having palpitations and Holter as indicated; atrial fibrillation with a rapid ventricular response. Some episodes have been of a very rapid ventricular response up to approximately 280 to 300 beats per minute during which wide complex tachycardia seen. This appears to be aberrant conduction, but ventricular tachycardia could not definitively be excluded. Cardiac catheterization was carried out today to evaluate for obstructive coronary artery disease or cardiomyopathy. Her symptoms have improved following addition of beta sameer to the regimen. She was advised to discontinue diuretics, but has continued with it, apparently on account of a misunderstanding. She does have chronic kidney disease stage III. A vigorous perioperative hydration was carried out during this procedure. She was given 1 liter of normal saline before cardiac catheterization and the perioperative hydration was continued during the procedure and afterwards. PROCEDURE: The left groin was prepared and draped in the usual sterile fashion. Lidocaine 1% with local anesthesia. Modified Seldinger technique was used to advance a 5-Malay sheath into the left femoral artery. A 5-Malay JR4 catheter was used for right coronary angiography. A 5-Malay JL3.5 catheter was used for left coronary angiography. A 5-Malay pigtail catheter was used for left heart catheterization, left ventricular angiography. The catheters were removed. Angiography of the right femoral artery was carried out through the sheath. Mynx was used to achieve hemostasis. A total of 30 mL of contrast was used for this study. The patient tolerated the procedure well. HEMODYNAMICS: Left ventricular end-diastolic pressure following coronary artery is 22 mmHg. There is no significant pressure gradient on pullback across the aortic valve. The ascending aortic pressure was 165/92 with a mean of 124 mmHg. LEFT VENTRICULAR ANGIOGRAPHY: Left ventricular angiography was carried out in the right anterior oblique projection only. Global left ventricular systolic function normal. No regional wall motion abnormalities seen. Left ventricular ejection fraction is approximately 60% to 65%. There does not to be any significant mitral regurgitation. CORONARY ANGIOGRAPHY: Left main coronary artery, left anterior descending artery, left circumflex artery, right coronary artery are all free of any angiographically significant disease. Right coronary artery is dominant. CONCLUSIONS: 1. No angiographically significant coronary artery disease. 2. Normal global left ventricular systolic function with an ejection fraction of 60% to 65%. 3. Elevated left ventricular end diastolic pressure. 4. No significant mitral regurgitation. DISCUSSION AND RECOMMENDATIONS: Based on results of the study, it appears appropriate to continue a conservative approach. Her current regimen of beta sameer for tachycardia and dabigatran for stroke prophylaxis is being continued. We have advised electrophysiology consultation for consideration of other therapies for arrhythmia, such as ablation. She states that she will think about it. Job ID: [id number] DocumentID: [id number] Dictated Date: 10/23/2017 16:09:56 Power Line Installer And Repairer Date: 10/23/2017 17:03:59 Dictated By: LC PATTON MD, MA, FACP, FACC,
[2017-10-24 03:36] VITALS: BP 126/71
[2017-10-24 03:48] LABS: HEMOGLOBIN 9.8 G/DL (11.5-16.0); MEAN PLATELET VOLUME 10.7 FL (7.4-10.4); RED BLOOD COUNT 3.38 10^6/uL (4.35-5.85); RED CELL DISTRIBUTION WIDTH 14.6 % (10.0-14.5); WHITE BLOOD COUNT 6.2 10^3/uL (4.3-11.0)
[2017-10-24 04:16] LABS: CALCIUM 8.5 MG/DL (8.5-10.1); CREATININE SERUM 1.19 MG/DL (0.60-1.30); MAGNESIUM 2.1 MG/DL (1.8-2.4); POTASSIUM 3.8 MMOL/L (3.6-5.0)
[2017-10-24] MEDS ORDERED: LEVOTHYROXINE 175 MCG TAB PO SCH (06:30)
[2017-10-24] MEDS ORDERED: OMEPRAZOLE 40 MG CAPSULE PO SCH (07:00)
[2017-10-24 08:00] VITALS: BP 119/67
[2017-10-24] MEDS: NS IV 1000 ML 1,000 ML IV SCH (08:39)
[2017-10-24] MEDS: DABIGATRAN 150 MG (PRADAXA) CAPSULE PO SCH (08:43)
[2017-10-24] MEDS ORDERED: NON-FORMULARY MEDICATION 1 EA EA (Metoprolol Succinate 200 MG) PO SCH (09:00)
[2017-10-24] MEDS ORDERED: DILTIAZEM 180 MG (CARDIZEM CD) CAP PO SCH (09:00)
[2017-10-24] MEDS ORDERED: METOPROLOL SUCCINATE 200 MG PO SCH (09:00)
[2017-10-24] MEDS ORDERED: NON-FORMULARY MEDICATION 1 EA EA (Levothyroxine Sodium 175 MCG) PO SCH (09:00)
--- NOTE | 2017-10-24 10:09 | Progress Note-Cardiology ---
Cardiology SOAP Progress Note Subjective: Feels well. No palp since on beta-sameer (about 2 weeks). No cp or syncope or shortness of breath or leg swelling. No fever or chills. No dysuria. Had had some URI-like symptoms lately that are improving. No leg or groin discomfort Objective: I&O/Vital Signs 10/23/17 10/24/17 10/24/17 10/24/17 23:00 00:00 00:00 01:00 Temp 98.5 Pulse 48 49 106 Resp 12 24 B/P (MAP) 135/60 (85) 135/73 (93) Pulse Ox 96 97 O2 Delivery Room Air Room Air 10/24/17 10/24/17 10/24/17 10/24/17 03:36 07:00 08:00 08:00 Temp 97.3 98.2 Pulse 47 51 48 Resp 16 17 B/P (MAP) 126/71 (89) 119/67 (84) Pulse Ox 98 97 O2 Delivery Room Air Room Air Room Air 10/24/17 00:00 Intake Total 1800 ml Output Total 350 ml Balance 1450 ml Weight (Pounds): 255 Weight (Ounces): 8.0 Weight (Calculated Kilograms): [phone] Condition: DP/PT pulses palpable Device Insertion Site: without hematoma Bruising: mild bruising Constitutional: AAO x 3, well-developed, well-nourished Respiratory: No accessory muscle use; lungs clear to percussion, lungs clear to auscultation Cardiovascular: regular rate-rhythm, S1 and S2, systolic murmur (faint RICHARD at card base) Gastrointestional: No tender; soft; No guarding, No rebound; audible bowel sounds Extremities: No clubbing, No cyanosis, No significant edema Neurologic/Psychiatric: oriented x 3, grossly intact, power is 5/5 both on sides Skin: No rash on exposed areas, No ulcerations on exposed areas Results/Procedures: Labs Laboratory Tests 10/23/17 13:20: White Blood Count 8.7, Red Blood Count 4.06L, Hemoglobin 11.8, Hematocrit 37, Mean Corpuscular Volume 91, Mean Corpuscular Hemoglobin 29, Mean Corpuscular Hemoglobin Concent 32, Red Cell Distribution Width 14.5, Platelet Count 251, Mean Platelet Volume 10.9H, Prothrombin Time 13.3, INR Comment 1.0, Activated Partial Thromboplast Time 23L, Sodium Level 141, Potassium Level 4.1, Chloride Level 106, Carbon Dioxide Level 23, Anion Gap 12, Blood Urea Nitrogen 24H, Creatinine 1.35H, Estimat Glomerular Filtration Rate 40, BUN/Creatinine Ratio 18 , Glucose Level 123H, Calcium Level 9.2, Magnesium Level 2.1, Total Bilirubin 0.6, Aspartate Amino Transf (AST/SGOT) 18, Alanine Aminotransferase (ALT/SGPT) 24, Alkaline Phosphatase 96, Total Protein 7.5, Albumin 4.4, Triglycerides Level 102, Cholesterol Level 238H, LDL Cholesterol Direct 177H, VLDL Cholesterol 20, HDL Cholesterol 49 10/24/17 03:11: White Blood Count 6.2, Red Blood Count 3.38L, Hemoglobin 9.8L, Hematocrit 31L, Mean Corpuscular Volume 92, Mean Corpuscular Hemoglobin 29, Mean Corpuscular Hemoglobin Concent 32, Red Cell Distribution Width 14.6H, Platelet Count 174, Mean Platelet Volume 10.7H, Sodium Level 141, Potassium Level 3.8, Chloride Level 107, Carbon Dioxide Level 25, Anion Gap 9, Blood Urea Nitrogen 22H, Creatinine 1.19, Estimat Glomerular Filtration Rate 47, BUN/Creatinine Ratio 18 , Glucose Level 110H, Calcium Level 8.5, Magnesium Level 2.1 Laboratory Tests 10/23/17 13:20 10/24/17 03:11 A/P: Assessment: Palpitations likely due to sinus node dysfunction. Holter of early October 2017 showed multiple episodes of PAF and wide-complex tachycardia (probable A Fib with very rapid rates and rate-related bundle branch block, but VT and/or torsades cannot be excluded). ECG on 10/20/17: Sinus nacho, QTc 498 msed. ECG on 10/24/17: Sinus nacho, QTc 488 msec. Palpitations have resolved after addition of beta-blockers on 10/12/17 Card cath of 10/23/17: No significant CAD, LVEF 60-65%, elevated LVEDP, no significant mitral regurg CKD 2-3. Renal insufficiency probably partly related to chronic diuretic therapy. She was advised to stop on 10/20/17, but she didn't. Again advised to stop diuretic therapy on 10/24/17. Renal function improved after stephanie-op hydration on 10/23 and 10/24/17 Mild post-cath anemia, likely dilutional due to hydration on 10/23 and 10/24/17 MPI of June 2016 showed no evidence of significant myocardial ischemia or infarction. Normal regional wall motion. Normal to hyperdynamic LV systolic function with and LVEF of 83%. Normal LV cavity size Echocardiogram of June 2016 showed LVEF 65%. No evidence of signficant valvular stenosis or stenosis on this technically difficult study. PASP could not be reliably estimated Exertional shortness of breath - no current c/o Fam h/o early CAD (both parents) Obesity with BMI approx 45 S/P total thyroidectomy in September 2016 d/t thyroid cancer; s/p radioactive iodine ablation in Mid-November 2016 - thyroid replacement - followed by . TSH normal on 10/05/17 (1.72) Intermitten non-compliance with OAC. Compliance advised during this hospitalization Plan: * We discussed cath findings in detail. Based on all the card w/u, WCT is likely aberrancy during episodes of A Fib. Symptoms are well controlled on current regimen of bb and ccb. Baseline rhythm is sinus nacho (asymptomatic) and QTc is not significantly prolonged. Thus, it appears reasonable to continue current regimen with the exception of her diuretics * EP consult has been advised. She states she will think about it * Efforts at wgt loss are advised * Sleep studies are already scheduled. She states she will comply * Close clinical outpt f/u is advised for now LC PATTON MD FACP [facility] CCDS Oct 24, 2017 10:09
--- NOTE | 2017-10-24 10:18 | Discharge Inst-Post CATH ---
Discharge Inst-CATH Post Cardiac Cath D/C Inst Follow Up/Plan F/u with Dr Ruano within 2 weeks CARDIAC CATH DISCHARGE INSTRUCTIONS *Hold Metformin for 48 hours post heart cath. ACTIVITY * Go Home directly and rest. * Limit activity of the leg (or wrist if it was used) for 7 days including aerobics, swimming, jogging, bicycling, etc. * Restrict stair-climbing for 7 days if possible, if not, climb up with your non -cath leg, then bring together on the same step. * Avoid lifting, pushing, pulling or excessive movement of the affected extremity for 7 days. * Customary sexual activity may be resumed after 2 days-use caution not to use a position that strains or causes pain to the affected extremity. * No driving for 24 hours. * NO SMOKING. * Avoid straining for bowel movements for 7 days. * Gentle walking on level ground is allowed. * Returning to work will depend on the type of procedure and the results. Your doctor will discuss this with you. CALL YOUR DOCTOR FOR ANY OF THE FOLLOWING: *If bleeding from the puncture site occurs- Apply gentle pressure to site with clean cloth and call your doctor or EMS. * If a knot or lump forms under the skin, increases in size, or causes pain. * If bruising appears to be worsening or moving further down your leg instead of disappearing. * Temperature above 101 F. CARE OF YOUR GROIN INCISION; * Bruising or purple discoloration of the skin near the puncture site is common. * You may shower only, no bathtub bathing for 5 days. Be careful to avoid slipping as your leg may feel stiff. * If a closure device was used on your femoral artery, please see the attached guide regarding care of the device and your leg. * REMOVE the dressing from your groin the next day after your procedure in the shower. CARE OF YOUR WRIST INCISION; * Bruising or purple discoloration of the skin near the puncture site is common. * You may shower. * DO NOT submerge wrist. * Remove dressing in [address] LC [address] [facility] CCDS Oct 24, 2017 10:18
--- NOTE | 2017-10-24 10:19 | Discharge Inst-Cardiology ---
Discharge Inst-Cardiac Discharge Medications Continued Medications: Cyclobenzaprine HCl (Cyclobenzaprine HCl) 5 Mg Tablet 5 MG PO TID PRN for SPASMS, TAB Dabigatran Etexilate Mesylate (Pradaxa) 150 Mg Capsule 150 MG PO BID, CAP Diltiazem HCl (Diltiazem 24Hr Cd) 180 Mg Cap.er.24h 360 MG PO DAILY, CAP 2 CAPSULES TAKEN DAILY Levothyroxine Sodium (Levothyroxine Sodium) 175 Mcg Tablet 175 MCG PO DAILY, TAB Metoprolol Succinate (Metoprolol Succinate) 200 Mg Tab.er.24h 200 MG PO DAILY, TAB Omeprazole (Omeprazole) 40 Mg Capsule.dr 40 MG PO DAILY, CAP Trazodone HCl (Trazodone HCl) 100 Mg Tablet 100 MG PO HS, TAB Discontinued Medications: Aspirin (Aspir 81) 81 Mg Tablet.dr 81 MG PO DAILY, TAB Sertraline HCl (Sertraline HCl) Unknown Strength Tablet 150 MG PO DAILY, TAB LC PATTON MD FACP FAC CCDS Oct 24, 2017 10:19
--- NOTE | 2017-10-24 10:23 | Cardiology Discharge Summary ---
Diagnosis/Chief Complaint Date of Admission 10/23/17 Date of Discharge 10/24/17 Final/Discharge Diagnosis Palpitations likely due to sinus node dysfunction. Holter of early October 2017 showed multiple episodes of PAF and wide-complex tachycardia (probable A Fib with very rapid rates and rate-related bundle branch block, but VT and/or torsades cannot be excluded). ECG on 10/20/17: Sinus nacho, QTc 498 msed. ECG on 10/24/17: Sinus nacho, QTc 488 msec. Palpitations have resolved after addition of beta-blockers on 10/12/17 Card cath of 10/23/17: No significant CAD, LVEF 60-65%, elevated LVEDP, no significant mitral regurg CKD 2-3. Renal insufficiency probably partly related to chronic diuretic therapy. She was advised to stop on 10/20/17, but she didn't. Again advised to stop diuretic therapy on 10/24/17. Renal function improved after stephanie-op hydration on 10/23 and 10/24/17 Mild post-cath anemia, likely dilutional due to hydration on 10/23 and 10/24/17 MPI of June 2016 showed no evidence of significant myocardial ischemia or infarction. Normal regional wall motion. Normal to hyperdynamic LV systolic function with and LVEF of 83%. Normal LV cavity size Echocardiogram of June 2016 showed LVEF 65%. No evidence of signficant valvular stenosis or stenosis on this technically difficult study. PASP could not be reliably estimated Exertional shortness of breath - no current c/o Fam h/o early CAD (both parents) Obesity with BMI approx 45 S/P total thyroidectomy in September 2016 d/t thyroid cancer; s/p radioactive iodine ablation in Mid-November 2016 - thyroid replacement - followed by . TSH normal on 10/05/17 (1.72) Intermittent non-compliance with OAC. Compliance advised during this hospitalization H/o anxiety and depression for which she has been on trazodone and sertraline. We have advised d/c sertraline (10/24/17) because of its potential side effect of QT prolongation Chief Complaint/HPI Chief Complaint/HPI Please refer to H&P for details of admission and reason for card cath Please refer to the progress note of this date (10/24/17) for condition at discharge Discharge Summary Procedures Card cath on 10/23/17 Hospital Course Pending Labs Laboratory Tests 10/24/17 03:11: White Blood Count 6.2, Red Blood Count 3.38, Hemoglobin 9.8, Hematocrit 31, Mean Corpuscular Volume 92, Mean Corpuscular Hemoglobin 29, Mean Corpuscular Hemoglobin Concent 32, Red Cell Distribution Width 14.6, Platelet Count 174, Mean Platelet Volume 10.7, Sodium Level 141, Potassium Level 3.8, Chloride Level 107, Carbon Dioxide Level 25, Anion Gap 9, Blood Urea Nitrogen 22, Creatinine 1.19, Estimat Glomerular Filtration Rate 47, BUN/Creatinine Ratio 18 , Glucose Level 110, Calcium Level 8.5, Magnesium Level 2.1 Discussion & Recommendations Home Medications Reviewed patient Home Medication Reconciliation performed by pharmacy medication reconciliations animal technician and/or nursing. Patients Allergies have been reviewed. Discharge Home Medications: Reviewed and agree with Discharge Medication list on patient's Discharge Instruction sheet Instructions to patient/family F/u with Dr Ruano within 2 weeks LC RUANO MD FACP FAC CCDS Oct 24, 2017 10:23
== END 2017-10-24 11:00 | disposition home or self-care (01) ==
LOC: CATH 12:41 → ICU 16:27 → CATH 10-24 11:00
PROVIDERS: ATTEND Internal Medicine Cardiovascular Disease
DX: I48.0 Paroxysmal atrial fibrillation (principal); R00.0 Tachycardia, unspecified; E89.0 Postprocedural hypothyroidism; E66.01 Morbid (severe) obesity due to excess calories; Z68.41 Body mass index [BMI] 40.0-44.9, adult; Z82.49 Family history of ischemic heart disease and other diseases of the circulatory system; Z85.850 Personal history of malignant neoplasm of thyroid; Z79.82 Long term (current) use of aspirin; Z79.899 Other long term (current) drug therapy
CPT/HCPCS: 36415; 80048; 80053; 80061; 83735; 85027; 85610; 85730; 87081; 93005; 93458

== ENCOUNTER → 2017-11-06 | Outpatient (CLI) | payer BC, OTHER ==
[~2017-11-06] MED LIST changes: +DABI150C5 PO; +DILT180C90 PO; +LEVO175T5 PO; +METO-395 PO; +METO200T48 PO; +SPIR25TA3 PO; -SPIR25TA5 PO; -TRAZ-189 PO; -TRAZ-190 PO; +TRAZ-28 PO; +TRAZ100T92 PO
== END ==
LOC: CARD 09:50
PROVIDERS: ATTEND Internal Medicine Cardiovascular Disease
DX: I48.0 Paroxysmal atrial fibrillation (principal); I12.9 Hypertensive chronic kidney disease with stage 1 through stage 4 chronic kidney disease, or unspecified chronic kidney disease; N18.2 Chronic kidney disease, stage 2 (mild); E66.01 Morbid (severe) obesity due to excess calories; I47.2 Ventricular tachycardia; C73 Malignant neoplasm of thyroid gland; G47.33 Obstructive sleep apnea (adult) (pediatric)
CPT/HCPCS: 93225; 93226

== ENCOUNTER → 2017-12-17 | Outpatient (CLI) | payer OTHER ==
--- NOTE | 2017-12-17 16:04 | Diagnostic Imaging Report ---
EXAMINATION: PA and lateral chest at 02:26 p.m. INDICATION: Shortness of breath. FINDINGS: There are no prior studies available for comparison. The heart is enlarged. The lungs are clear. There is no sign of failure, pneumonia, or pleural effusion to suggest an acute abnormality. The mediastinum is prominent. This may be related to the patient's body habitus. The osseous structures are intact. There is at least moderate degenerative disc and bony disease in the mid and lower thoracic spine. Surgical clips are evident in the right upper quadrant. IMPRESSION: 1. There is cardiomegaly, but there is no evidence for an acute cardiopulmonary abnormality. 2. If previous studies are available, they would be helpful for comparison. Dictated by: Dictated on workstation # [id number]
== END ==
LOC: RAD 13:52
PROVIDERS: ATTEND Nurse Practitioner Family
DX: I51.7 Cardiomegaly (principal); J98.4 Other disorders of lung
CPT/HCPCS: 71046

== ENCOUNTER 2017-12-22 16:30 | Emergency (ER) | payer SELFPAY ==
[~2017-12-22] VITALS: Ht 152.4 cm; Wt 99.8 kg
[~2017-12-22 16:30] MED LIST changes: -METO-395 PO
--- OUTSIDE RECORDS SUMMARY | 2017-12-22 16:36 | XMS REPORT | Clinical Summary ---
Author Author [facility] Organization [facility] Address Unknown Phone Unavailable Care Team Providers Care Dry Goods Inspector Name Role Phone Asher Tinsley MD PCP Hiral Garcia RN Unavailable Unavailable Sudhir Tillman MD Unavailable Source Comments Some departments are not documenting in the electronic medical record. If you do not see the information that you expected, contact Release of Information in the Health Information Management department at [phone] for further assistance in locating additional records.[facility] Allergies No Known Allergies Current Medications Prescription Sig. Disp. Refills Start End Date Status Date furosemide (LASIX) 40 mg Take 40 mg by mouth every Active tabletIndications: Edema 12 hours. Indications: EDEMA lisinopril/hydrochlorothi Take by mouth daily. Active azide (ZESTORETIC) Indications: HTN/CHF 20/12.5 mg tabletIndications: HTN/CHF omeprazole DR(+) Take 40 mg by mouth Active (PRILOSEC) 40 mg daily. Indications: capsuleIndications: PREVENTION OF STRESS PREVENTION OF STRESS ULCER ULCER aspirin 81 mg chewable Take 324 mg by mouth Active tabletIndications: daily. Indications: PREVENTION OF TRANSIENT PREVENTION OF TRANSIENT ISCHEMIC ATTACK ISCHEMIC ATTACKS diltiazem CD (CARDIZEM Take 360 mg by mouth Active CD) 120 mg daily. Indications: capsuleIndications: HYPERTENSION HYPERTENSION potassium chloride SR Take 20 mEq by mouth Active (K-DUR) 20 mEq twice daily. 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 Pulse 62 05/16/2015 8:00 AM SOLID W[employer]E COLLECTION WORKER Temperature 37 C (98.6 F) 05/16/2015 8:00 AM SOLID W[employer]E COLLECTION WORKER Respiratory Rate - - Oxygen Saturation 98% 05/16/2015 8:00 AM SOLID W[employer]E COLLECTION WORKER Inhaled Oxygen - - Concentration Weight 86.1 kg (189 lb 13.1 oz) 05/09/2015 8:00 PM CDT Height 159 cm (5' 2.6") 05/09/2015 8:00 PM CDT Body Mass Index 34.06 05/09/2015 8:00 PM CDT Plan of Treatment Health Maintenance Due Date Last Done Comments HEPATITIS C SCREENING 1959 PHYSICAL (COMPREHENSIVE) 1966 EXAM PERTUSSIS VACCINE 1970 HIV SCREENING 1974 TETANUS VACCINE 1976 CERVICAL CANCER SCREENING 1989 BREAST CANCER SCREENING 1999 COLORECTAL CANCER 2009 SCREENING INFLUENZA VACCINE 04/12/2018 Results Not on filefrom Last 3 Months
[2017-12-22] MEDS ORDERED: ASPIRIN 81 MG CHEW (CHILDREN'S ASA) PO ONE (16:45)
[2017-12-22] MEDS ORDERED: NS IV 500 ML 500 ML IV SCH (16:45)
[2017-12-22] MEDS ORDERED: DILTIAZEM 25 MG/5 ML INJ (CARDIZEM) VIAL IVP ONE (16:45)
--- NOTE | 2017-12-22 16:55 | ED Cardiac General ---
History of Present Illness General Chief Complaint: Cardiac/General Problems Stated Complaint: AFIB RVR Source: patient, EMS Exam Limitations: no limitations History of Present Illness Date Seen by Provider: Dec 22, 2017 Time Seen by Provider: 16:53 Initial Comments to ER per EMS from the [facility] in [facility] with reports of atrial fibrillation with rapid ventricular response. She was being seen at the clinic today for bilateral lower extremity pain beginning at the knees and extending inferiorly. During initial exam she was found to be tachycardic and diagnosed with atrial fibrillation. She has a known history of atrial fibrillation, she is on metoprolol, Cardizem and Pradaxa. She is an established patient of Dr. Ruano. She denies any shortness of breath chest pain or palpitations. Timing/Duration: changing over time, intermittent Severity: mild Activities at Onset: none NTG SL TEXTILE SCREEN PRINTER: No ASA po TEXTILE SCREEN PRINTER: No Associated Systoms: Chest Pain Allergies and Home Medications Allergies Coded Allergies: No Known Drug Allergies (Unverified , 09/18/16) Home Medications Cyclobenzaprine HCl 5 Mg Tablet, 5 MG PO TID PRN for SPASMS, (Reported) Dabigatran Etexilate Mesylate 150 Mg Capsule, 150 MG PO BID, (Reported) Diltiazem HCl 180 Mg Cap.er.24h, 360 MG PO DAILY, (Reported) 2 CAPSULES TAKEN DAILY Levothyroxine Sodium 175 Mcg Tablet, 175 MCG PO DAILY, (Reported) Metoprolol Succinate 200 Mg Tab.er.24h, 200 MG PO DAILY, (Reported) Omeprazole 40 Mg Capsule.dr, 40 MG PO DAILY, (Reported) Trazodone HCl 100 Mg Tablet, 100 MG PO HS, (Reported) Patient Home Medication List Home Medication List Reviewed: Yes Review of Systems Constitutional: see HPI EENTM: No Symptoms Reported Respiratory: No Symptoms Reported Cardiovascular: See HPI; Denies Chest Pain, Denies Edema; Irregular Heart Rate Gastrointestinal: No Symptoms Reported Genitourinary: No Symptoms Reported Musculoskeletal: no symptoms reported Skin: no symptoms reported Psychiatric/Neurological: No Symptoms Reported Endocrine: No Symptoms Reported Hematologic/Lymphatic: No Symptoms Reported Past [id number] Hx Patient Social History Recent Hopitalizations: No (AUG 2016-THYROIDECTOMY LEFT) Immunizations Up To Date Date of Influenza Vaccine: Apr 14, 2016 Seasonal Allergies Seasonal Allergies: No Past Medical History Gallbladder, Tonsillectomy Atrial Fibrillation, Chronic Edema/Swelling, Hypertension Reproductive Disorders: No Female Reproductive Disorders: Denies Sexually Transmitted Disease: No HIV/AIDS: No Gastroesophageal Reflux Loss of Vision: Bilateral Hearing Impairment: Denies Thyroid Depression Adverse Reaction/Blood Tranf: No Physical Exam Vital Signs Vital Signs - First Documented 12/22/17 16:30 Temp 97.9 Pulse 130 Resp 18 B/P (MAP) 173/130 (144) Pulse Ox 98 Capillary Refill : General Appearance: No Apparent Distress, WD/WN HEENT: PERRL/EOMI, TMs Normal Neck: Full Range of Motion, Normal Inspection Respiratory: No Accessory Muscle Use, No Respiratory Distress Cardiovascular: Normal Peripheral Pulses, Irregularly Irregular, Tachycardia ( rate of 140s, hypertensive at 173/130. ) Gastrointestinal: Normal Bowel Sounds, Non Tender, Soft Extremity: Normal Capillary Refill, Normal Inspection Neurologic/Psychiatric: Alert, Oriented x3 Skin: Normal Color, Warm/Dry Other comments both lower extremities are pink warm and dry Progress/Results/Core Measures Results/Orders Lab Results Laboratory Tests Test 12/22/17 16:50 Range/Units White Blood Count 6.8 4.3-11.0 10^3/uL Red Blood Count 4.25 L 4.35-5.85 10^6/uL Hemoglobin 12.3 11.5-16.0 G/DL Hematocrit 38 35-52 % Mean Corpuscular Volume 89 80-99 FL Mean Corpuscular Hemoglobin 29 25-34 PG Mean Corpuscular Hemoglobin Concent 33 32-36 G/DL Red Cell Distribution Width 14.1 10.0-14.5 % Platelet Count 205 130-400 10^3/uL Mean Platelet Volume 10.1 7.4-10.4 FL Neutrophils (%) (Auto) 76 H 42-75 % Lymphocytes (%) (Auto) 15 12-44 % Monocytes (%) (Auto) 7 0-12 % Eosinophils (%) (Auto) 2 0-10 % Basophils (%) (Auto) 0 0-10 % Neutrophils # (Auto) 5.2 1.8-7.8 X 10^3 Lymphocytes # (Auto) 1.0 1.0-4.0 X 10^3 Monocytes # (Auto) 0.5 0.0-1.0 X 10^3 Eosinophils # (Auto) 0.1 0.0-0.3 10^3/uL Basophils # (Auto) 0.0 0.0-0.1 10^3/uL Prothrombin Time 13.8 12.2-14.7 SEC INR Comment 1.1 0.8-1.4 Activated Partial Thromboplast Time 35 24-35 SEC Sodium Level 142 135-145 MMOL/L Potassium Level 4.2 3.6-5.0 MMOL/L Chloride Level 107 98-107 MMOL/L Carbon Dioxide Level 25 21-32 MMOL/L Anion Gap 10 5-14 MMOL/L Blood Urea Nitrogen 16 7-18 MG/DL Creatinine 1.29 0.60-1.30 MG/DL Estimat Glomerular Filtration Rate 42 BUN/Creatinine Ratio 12 Glucose Level 101 70-105 MG/DL Calcium Level 9.4 8.5-10.1 MG/DL Magnesium Level 1.8 1.8-2.4 MG/DL Total Bilirubin 1.0 0.1-1.0 MG/DL Aspartate Amino Transf (AST/SGOT) 13 5-34 U/L Alanine Aminotransferase (ALT/SGPT) 10 0-55 U/L Alkaline Phosphatase 81 40-136 U/L Myoglobin 33.1 10.0-92.0 NG/ML Troponin I < 0.30 <0.30 NG/ML B-Type Natriuretic Peptide 318.8 H <100.0 PG/ML Total Protein 6.8 6.4-8.2 GM/DL Albumin 3.9 3.2-4.5 GM/DL My Orders Orders - ANGELITO LOPEZ AUTO RADIATOR SPECIALIST Cbc With Automated Diff (12/22/17 16:41) Magnesium (12/22/17 16:41) Chest 1 View, Ap/Pa Only (12/22/17 16:41) Ekg Tracing (12/22/17 16:41) Cardiac Profile 1 (12/22/17 16:41) Comprehensive Metabolic Panel (12/22/17 16:41) Myoglobin Serum (12/22/17 16:41) Protime With Inr (12/22/17 16:41) Partial Thromboplastin Time (12/22/17 16:41) O2 (12/22/17 16:41) Monitor-Rhythm Ecg Trace Only (12/22/17 16:41) Lipid Panel (12/23/17 06:00) Aspirin Chewable Tablet (Baby Aspirin Ch (12/22/17 16:45) Saline Lock/Iv-Start (12/22/17 16:41) BNP (12/22/17 16:41) Ns Iv 500 Ml (Sodium Chloride 0.9%) (12/22/17 16:45) Diltiazem Injection (Cardizem Injection) (12/22/17 16:45) Metoprolol Tartrate Injection (Lopressor (12/22/17 17:30) Metoprolol Succinate (Xl) Tab (Toprol Xl (12/22/17 17:45) Medications Given in ED Current Medications Medications Dose Ordered Sig/Sheron Route Start Time Stop Time Status Last Admin Dose Admin Aspirin 324 mg ONCE ONCE PO 12/22/17 16:45 12/22/17 16:46 DC 12/22/17 17:00 324 MG Diltiazem HCl 10 mg ONCE ONCE IVP 12/22/17 16:45 12/22/17 16:46 DC 12/22/17 17:00 10 MG Metoprolol Tartrate 5 mg ONCE ONCE IV 12/22/17 17:30 12/22/17 17:31 DC 12/22/17 17:20 5 MG Vital Signs/I&O 12/22/17 16:30 Temp 97.9 Pulse 130 Resp 18 B/P (MAP) 173/130 (144) Pulse Ox 98 Departure Communication (Admissions) [id number] discussed the case with the patient's concrete products machine operator Dr. Ruano. Since she is early on per DACs a Cardizem and metoprolol she can be discharged home once we achieved rate control. She was given a 10 mg bolus of Cardizem IV, 5 mg of Lopressor IV and her heart rate changed from a rate of 132 atrial fibrillation to a rate of 70 atrial fibrillation. Her blood pressure has dropped from nearly 200/102 150 systolic. The pulse pressure remains narrow with only about 20 points difference between systolic and diastolic. I do not feel this is accurate , she has no chest pain or shortness of breath she is alert and well-appearing. Currently her blood pressure reads 158/120. She received a 500 ml bolus of fluids. Dr. Ruano recommends if labs including troponin are negative she can be discharged to home. We should increase her dose of metoprolol from 200 mg of extended release metoprolol daily to 200 mg in the morning and 100 mg in the evening with the first dose here. She should follow-up next week for recheck. Impression Primary Impression: Atrial fibrillation with rapid ventricular response Disposition: 01 HOME, SELF-CARE Condition: Stable Departure-Patient Inst. Decision time for Depature: 17:57 Referrals: LC RUANO MD [facility] BASSAM GRANADO MD (PCP) Primary Care Physician Patient Instructions: Atrial Fibrillation (DC) Add. Discharge Instructions: 1. Increase your metoprolol dose from just 200 mg once daily to 200 mg in the morning and 100 mg in the evening. Continue all other current medications. Return to the emergency room for any concerns. Follow-up with Dr. Patel. Call his office tomorrow to make an appointment to be seen within one week.All discharge instructions reviewed with patient and/or family. Voiced understanding. Scripts Metoprolol Succinate (Metoprolol Succinate) 100 Mg Tab.er.24h 100 MG PO DAILY, #14 TAB take one tablet in the evening Prov: ANGELITO LOPEZ APRN 12/22/17 Copy Copies To 1: LC RUANO MD [facility] ANGELITO LOPEZ APRN Dec 22, 2017 16:55
[2017-12-22 17:01] LABS: BASOPHILS % (AUTO) 0 % (0-10); EOSINOPHILS # (AUTO) 0.1 10^3/uL (0.0-0.3); EOSINOPHILS % (AUTO) 2 % (0-10); HEMATOCRIT 38 % (35-52); HEMOGLOBIN 12.3 G/DL (11.5-16.0); LYMPHOCYTES % (AUTO) 15 % (12-44); MEAN CORPUSCULAR HEMOGLOBIN 29 PG (25-34); MEAN CORPUSCULAR HGB CONC 33 G/DL (32-36); MEAN CORPUSCULAR VOLUME 89 FL (80-99); MEAN PLATELET VOLUME 10.1 FL (7.4-10.4); MONOCYTES # (AUTO) 0.5 X 10^3 (0.0-1.0); MONOCYTES % (AUTO) 7 % (0-12); NEUTROPHILS # (AUTO) 5.2 X 10^3 (1.8-7.8); NEUTROPHILS % (AUTO) 76 % (42-75); PLATELET COUNT 205 10^3/uL (130-400); RED BLOOD COUNT 4.25 10^6/uL (4.35-5.85); RED CELL DISTRIBUTION WIDTH 14.1 % (10.0-14.5); WHITE BLOOD COUNT 6.8 10^3/uL (4.3-11.0)
[2017-12-22 17:13] LABS: INR 1.1 (0.8-1.4); PROTHROMBIN TIME PATIENT 13.8 SEC (12.2-14.7)
--- NOTE | 2017-12-22 17:16 | Diagnostic Imaging Report ---
INDICATION: Atrial fibrillation. TIME OF EXAM: 5:00 p.m. Correlation is made with prior study from 12/17/2017. FINDINGS: The heart is enlarged but stable. No infiltrate or failure is detected. No effusion or pneumothorax is identified. IMPRESSION: No acute cardiopulmonary process is detected. Dictated by: Dictated on workstation # [id number]
[2017-12-22 17:23] LABS: ALANINE AMINOTRANSFERASE 10 U/L (0-55); ALBUMIN 3.9 GM/DL (3.2-4.5); ALKALINE PHOSPHATASE 81 U/L (40-136); BUN/CREATININE RATIO 12; CALCIUM 9.4 MG/DL (8.5-10.1); CARBON DIOXIDE 25 MMOL/L (21-32); CHLORIDE 107 MMOL/L (98-107); CREATININE SERUM 1.29 MG/DL (0.60-1.30); GFR ESTIMATED 42; GLUCOSE 101 MG/DL (70-105); MAGNESIUM 1.8 MG/DL (1.8-2.4); POTASSIUM 4.2 MMOL/L (3.6-5.0); SODIUM 142 MMOL/L (135-145); TOTAL PROTEIN 6.8 GM/DL (6.4-8.2)
[2017-12-22 17:29] LABS: MYOGLOBIN SERUM 33.1 NG/ML (10.0-92.0)
[2017-12-22] MEDS ORDERED: meTOprolol 5 MG/5 ML (LOPRESSOR) VIAL IV ONE (17:30)
[2017-12-22] MEDS ORDERED: meTOprolol SUCCINATE 100 MG (TOPROL XL) TAB PO ONE (17:45)
[2017-12-22] MEDS ORDERED: METO-395 PO (17:59)
[2017-12-22 18:41] VITALS: BP 157/105
== END 2017-12-22 18:40 | disposition home or self-care (01) ==
LOC: EDUNIT# 16:30 → ER 16:31
DX: I48.91 Unspecified atrial fibrillation (principal); I10 Essential (primary) hypertension; K21.9 Gastro-esophageal reflux disease without esophagitis; F32.9 Major depressive disorder, single episode, unspecified; Z90.89 Acquired absence of other organs
CPT/HCPCS: 36415; 71045; 80053; 83735; 83874; 83880; 84484; 85025; 85610; 85730; 93005; 93041; 96361; 96374; 96375

== ENCOUNTER → 2018-02-11 | Day surgery (SDC) | payer OTHER ==
[~2018-02-11] VITALS: Ht 162.6 cm; Wt 109.8 kg
[2018-02-11] VITALS (11 sets, daily range): BP systolic 148–207; BP diastolic 86–147
[~2018-02-11] MED LIST changes: +DILT240C86 PO; +FLEC100T PO; +METO-395 PO; +MIDAZOLAM 2 MG/2 ML (VERSED) VIAL ONE; +NS IV 1000 ML 1,000 ML IV SCH; -SPIR25TA3 PO; +SPIR25TA5 PO; +TRAZ-189 PO; +TRAZ-190 PO; -TRAZ-28 PO; -TRAZ100T92 PO; +proPOfol 200 MG/20 ML (DIPRIVAN) VIAL IV ONE
--- OUTSIDE RECORDS SUMMARY | 2018-02-11 08:28 | XMS REPORT | Clinical Summary ---
Author Author [facility] Organization [facility] Address Unknown Phone Unavailable Care Team Providers Care Doors Prefitter Name Role Phone Asher Tinsley MD PCP Hiral Garcia RN Unavailable Unavailable Sudhir Tillman MD Unavailable Source Comments Some departments are not documenting in the electronic medical record. If you do not see the information that you expected, contact Release of Information in the Health Information Management department at [phone] for further assistance in locating additional records.[facility] Allergies No Known Allergies Current Medications Prescription Sig. Disp. Refills Start End Date Status Date furosemide (LASIX) 40 mg Take 40 mg by mouth every Active tabletIndications: Edema 12 hours. Indications: EDEMA lisinopril/hydrochlorothi Take by mouth daily. Active azide (ZESTORETIC) Indications: HTN/CHF 20/12.5 mg tabletIndications: HTN/CHF omeprazole DR(+) Take 40 mg by mouth Active (PRILOSEC) 40 mg daily. Indications: capsuleIndications: PREVENTION OF STRESS Prevention of Stress ULCER Ulcer aspirin 81 mg chewable Take 324 mg by mouth Active tabletIndications: daily. Indications: prevention of transient PREVENTION OF TRANSIENT ischemic attack ISCHEMIC ATTACKS diltiazem CD (CARDIZEM Take 360 mg by mouth Active CD) 120 mg daily. Indications: capsuleIndications: HYPERTENSION hypertension potassium chloride SR Take 20 mEq by mouth Active (K-DUR) 20 mEq twice daily. Indications: tabletIndications: HYPOKALEMIA PREVENTION hypokalemia prevention sertraline (ZOLOFT) 50 mg Take 1 Tab [...] Taken Blood Pressure 131/81 05/16/2015 8:00 AM DOCKMASTER Pulse 62 05/16/2015 8:00 AM DOCKMASTER Temperature 37 C (98.6 F) 05/16/2015 8:00 AM DOCKMASTER Respiratory Rate - - Oxygen Saturation 98% 05/16/2015 8:00 AM DOCKMASTER Inhaled Oxygen - - Concentration Weight 86.1 [...] CANCER SCREENING 1999 COLORECTAL CANCER 2009 SCREENING SHINGLES RECOMBINANT 2009 VACCINE (1 of 2) INFLUENZA VACCINE 04/12/2018 Results Not on filefrom Last 3 Months
[2018-02-11 08:38] LABS: HEMOGLOBIN 12.3 G/DL (11.5-16.0); RED BLOOD COUNT 4.51 10^6/uL (4.35-5.85); WHITE BLOOD COUNT 6.4 10^3/uL (4.3-11.0)
[2018-02-11 08:56] LABS: ALBUMIN 4.1 GM/DL (3.2-4.5); BILIRUBIN,TOTAL 0.6 MG/DL (0.1-1.0); CALCIUM 9.5 MG/DL (8.5-10.1); CREATININE SERUM 1.25 MG/DL (0.60-1.30); POTASSIUM 4.2 MMOL/L (3.6-5.0); TOTAL PROTEIN 6.9 GM/DL (6.4-8.2)
[2018-02-11 09:17] LABS: INR 1.5 (0.8-1.4); PROTHROMBIN TIME PATIENT 18.3 SEC (12.2-14.7)
--- NOTE | 2018-02-11 10:27 | Anesthesia-Procedure Note ---
Procedures/Interventions Procedure Start/Stop/Diagnosis Date of Procedure: Feb 11, 2018 Start Time: 09:49 Referring Physician: Dr Cheatham Preprocedural Diagnosis: A-Fib Brief History Pt with a history of A-Fib. Brief history obtained from patient and Dr Cheatham. Monitors on including EtCO2. Versed 2 mg IV and Propofol 60 mg IV in divided doses. Pt maintained spontaneous ventilation throughout. She returned sinus rhythm after the first cardioversion. She tolerated the procedure well. Stop Time: 09:52 Postprocedural Diagnosis: Sinus Rhythm ALYCIA/Cardioversion Anesthesia Type: MAC ASA Class: 3 Medications Versed 2 mg IV and Propofol 60 mg IV Monitors and Equipment: BP Cuff - Left, Continuous EKG, End Tidal CO2, IV, Pulse Oximeter BORIS STARR DO Feb 11, 2018 10:27
--- NOTE | 2018-02-11 10:29 | Anesthesia-General Post-Op ---
MAC Patient Condition Mental Status/LOC: Same as Preop Cardiovascular: Satisfactory Nausea/Vomiting: Absent Respiratory: Satisfactory Pain: Controlled Complications: Absent Post Op Complications Complications None Follow Up Care/Instructions Patient Instructions None needed. Anesthesiology Discharge Order Discharge Order Patient is doing well, no complaints, stable vital signs, no apparent adverse anesthesia problems. BORIS STARR DO Feb 11, 2018 10:29
--- NOTE | 2018-02-11 11:27 | Cardioversion ---
Cardioversion PROCEDURE PHYSICIAN: Jovanny Cheatham MD DATE OF PROCEDURE: 02/11/18 DIRECT EXTERNAL ELECTRICAL CARDIOVERSION: Indications: Atrial Fibrillation with rapid ventricular rate Preoperative diagnoses: Atrial Fibrillation with rapid ventricular rate Postoperative diagnosis: Sinus rhythm, Successful Electrical Cardioversion History: Anesthesia: By Anesthesia services Complications: None Specimen: None Contrast: 0 Flouroscopy: none Procedure Details: The patient was brought the hospital laboratory technician after informed consent was taken, all the risks and complications were explained including the risk of stroke. Electrical cardioversion was carried out with anesthesia support with propofol. 200 joules of synchronized shock was delivered through external patches which promptly restored sinus rhythm. The patient tolerated the procedure well. Conclusions: 1.Successful Cardioversion. 2.Continue oral anticoagulation and rate controlling agent. 3.Follow up in office in 7 days. Jovanny Cheatham MD, RS, CCDS Cardiac Electrophysiology Mark CHEATHAM MD Feb 11, 2018 11:27 am
== END | disposition home or self-care (01) ==
LOC: CATH 07:28
PROVIDERS: ATTEND Internal Medicine Cardiovascular Disease
DX: I48.0 Paroxysmal atrial fibrillation (principal); I10 Essential (primary) hypertension; G47.33 Obstructive sleep apnea (adult) (pediatric); E66.01 Morbid (severe) obesity due to excess calories; Z68.41 Body mass index [BMI] 40.0-44.9, adult; Z79.01 Long term (current) use of anticoagulants
CPT/HCPCS: 36415; 80053; 85027; 85610; 85730; 87081; 92960; 93005

== ENCOUNTER 2018-03-26 10:15 | Outpatient (RCR) | payer OTHER ==
[2018-02-12 13:39] LABS: BASOPHILS % (AUTO) 0 % (0-10); EOSINOPHILS # (AUTO) 0.2 10^3/uL (0.0-0.3); EOSINOPHILS % (AUTO) 3 % (0-10); HEMATOCRIT 37 % (35-52); HEMOGLOBIN 11.8 G/DL (11.5-16.0); LYMPHOCYTES % (AUTO) 12 % (12-44); MEAN CORPUSCULAR HEMOGLOBIN 29 PG (25-34); MEAN CORPUSCULAR HGB CONC 32 G/DL (32-36); MEAN CORPUSCULAR VOLUME 90 FL (80-99); MEAN PLATELET VOLUME 11.3 FL (7.4-10.4); MONOCYTES # (AUTO) 0.6 X 10^3 (0.0-1.0); MONOCYTES % (AUTO) 7 % (0-12); NEUTROPHILS # (AUTO) 6.2 X 10^3 (1.8-7.8); NEUTROPHILS % (AUTO) 78 % (42-75); PLATELET COUNT 206 10^3/uL (130-400); RED BLOOD COUNT 4.11 10^6/uL (4.35-5.85); RED CELL DISTRIBUTION WIDTH 15.1 % (10.0-14.5)
[2018-02-12 14:12] LABS: BILIRUBIN,TOTAL 0.6 MG/DL (0.1-1.0); CREATININE SERUM 1.23 MG/DL (0.60-1.30); POTASSIUM 4.3 MMOL/L (3.6-5.0); TOTAL PROTEIN 6.5 GM/DL (6.4-8.2)
[~2018-03-26 10:15] MED LIST changes: -MIDAZOLAM 2 MG/2 ML (VERSED) VIAL ONE; -NS IV 1000 ML 1,000 ML IV SCH; -proPOfol 200 MG/20 ML (DIPRIVAN) VIAL IV ONE
== END 2018-05-13 | disposition home or self-care (01) ==
LOC: ONC 10:15
PROVIDERS: ATTEND Internal Medicine Hematology & Oncology
DX: C73 Malignant neoplasm of thyroid gland (principal); E89.0 Postprocedural hypothyroidism; I48.0 Paroxysmal atrial fibrillation; N18.3 Chronic kidney disease, stage 3 (moderate); G47.33 Obstructive sleep apnea (adult) (pediatric); E66.01 Morbid (severe) obesity due to excess calories; Z68.41 Body mass index [BMI] 40.0-44.9, adult; Z79.01 Long term (current) use of anticoagulants; Z79.899 Other long term (current) drug therapy
CPT/HCPCS: 36415; 80053; 84432; 84443; 85025; 86800; 99213

== ENCOUNTER → 2018-05-17 | Outpatient (CLI) | payer OTHER | LOC: CARD 10:57 | PROVIDERS: ATTEND Nurse Practitioner Family | DX: I48.0 Paroxysmal atrial fibrillation (principal); I49.5 Sick sinus syndrome; R00.1 Bradycardia, unspecified; I10 Essential (primary) hypertension; G47.33 Obstructive sleep apnea (adult) (pediatric) | CPT/HCPCS: 93225; 93226 ==

== ENCOUNTER → 2018-06-09 | Outpatient (CLI) | payer OTHER ==
--- NOTE | 2018-06-11 10:35 | Diagnostic Imaging Report ---
INDICATION: Papillary thyroid carcinoma. TECHNIQUE: The patient was administered 2.1 mCi of iodine-131 orally and a whole body scan was performed at 48 hours. COMPARISON: Correlation is made with the treatment whole-body study performed on 12/12/2016. FINDINGS: No definite residual thyroid tissue is seen. Normal physiologic activity is seen in the stomach and GI tract as well as the bladder. No abnormal foci of tracer accumulation are seen. IMPRESSION: Normal whole body I-131 scan. No definite residual or recurrent thyroid tissue or tumor is identified. Dictated by: Dictated on workstation # [id number]
== END ==
LOC: CARD 09:30
PROVIDERS: ATTEND Nurse Practitioner Family
DX: C73 Malignant neoplasm of thyroid gland (principal)
CPT/HCPCS: 78018

== ENCOUNTER 2018-08-04 12:09 | Outpatient (RCR) | payer OTHER ==
[2018-06-11 09:56] LABS: BASOPHILS # (AUTO) 0.1 10^3/uL (0.0-0.1); BASOPHILS % (AUTO) 1 % (0-10); EOSINOPHILS # (AUTO) 0.2 10^3/uL (0.0-0.3); EOSINOPHILS % (AUTO) 2 % (0-10); HEMATOCRIT 50 % (35-52); HEMOGLOBIN 16.5 G/DL (11.5-16.0); LYMPHOCYTES % (AUTO) 19 % (12-44); MEAN CORPUSCULAR HEMOGLOBIN 29 PG (25-34); MEAN CORPUSCULAR HGB CONC 33 G/DL (32-36); MEAN CORPUSCULAR VOLUME 89 FL (80-99); MONOCYTES # (AUTO) 0.8 X 10^3 (0.0-1.0); MONOCYTES % (AUTO) 8 % (0-12); NEUTROPHILS # (AUTO) 7.4 X 10^3 (1.8-7.8); NEUTROPHILS % (AUTO) 70 % (42-75); PLATELET COUNT 233 10^3/uL (130-400); RED CELL DISTRIBUTION WIDTH 15.3 % (10.0-14.5); WHITE BLOOD COUNT 10.6 10^3/uL (4.3-11.0)
[2018-06-11 10:24] LABS: ALANINE AMINOTRANSFERASE 12 U/L (0-55); ALBUMIN 4.7 GM/DL (3.2-4.5); ALKALINE PHOSPHATASE 85 U/L (40-136); BILIRUBIN,TOTAL 0.8 MG/DL (0.1-1.0); BUN/CREATININE RATIO 15; CALCIUM 10.2 MG/DL (8.5-10.1); CARBON DIOXIDE 20 MMOL/L (21-32); CHLORIDE 103 MMOL/L (98-107); CREATININE SERUM 1.59 MG/DL (0.60-1.30); GFR ESTIMATED 33; GLUCOSE 126 MG/DL (70-105); POTASSIUM 4.1 MMOL/L (3.6-5.0); SODIUM 140 MMOL/L (135-145); TOTAL PROTEIN 8.5 GM/DL (6.4-8.2)
== END 2018-09-09 | disposition home or self-care (01) ==
LOC: ONC 12:09
PROVIDERS: ATTEND Internal Medicine Hematology & Oncology
DX: C73 Malignant neoplasm of thyroid gland (principal); E89.0 Postprocedural hypothyroidism; I48.0 Paroxysmal atrial fibrillation; N18.3 Chronic kidney disease, stage 3 (moderate); G47.33 Obstructive sleep apnea (adult) (pediatric); E66.01 Morbid (severe) obesity due to excess calories; Z68.41 Body mass index [BMI] 40.0-44.9, adult; Z79.01 Long term (current) use of anticoagulants; Z79.899 Other long term (current) drug therapy
CPT/HCPCS: 36415; 80053; 84443; 85025; 99213

== ENCOUNTER 2018-11-01 11:27 | Outpatient (RCR) | payer OTHER ==
[2018-09-20 13:59] LABS: BASOPHILS % (AUTO) 0 % (0-10); EOSINOPHILS # (AUTO) 0.2 10^3/uL (0.0-0.3); EOSINOPHILS % (AUTO) 3 % (0-10); HEMATOCRIT 39 % (35-52); HEMOGLOBIN 12.4 G/DL (11.5-16.0); LYMPHOCYTES # (AUTO) 0.8 X 10^3 (1.0-4.0); LYMPHOCYTES % (AUTO) 12 % (12-44); MEAN CORPUSCULAR HEMOGLOBIN 30 PG (25-34); MEAN CORPUSCULAR HGB CONC 32 G/DL (32-36); MEAN CORPUSCULAR VOLUME 95 FL (80-99); MEAN PLATELET VOLUME 10.8 FL (7.4-10.4); MONOCYTES # (AUTO) 0.5 X 10^3 (0.0-1.0); MONOCYTES % (AUTO) 7 % (0-12); NEUTROPHILS # (AUTO) 5.2 X 10^3 (1.8-7.8); NEUTROPHILS % (AUTO) 78 % (42-75); PLATELET COUNT 194 10^3/uL (130-400); RED CELL DISTRIBUTION WIDTH 13.2 % (10.0-14.5); WHITE BLOOD COUNT 6.7 10^3/uL (4.3-11.0)
[2018-09-20 14:23] LABS: ALBUMIN 4.2 GM/DL (3.2-4.5); BILIRUBIN,TOTAL 0.6 MG/DL (0.1-1.0); CALCIUM 9.2 MG/DL (8.5-10.1); CREATININE SERUM 1.4 MG/DL (0.60-1.30); POTASSIUM 4.5 MMOL/L (3.6-5.0); TOTAL PROTEIN 7.2 GM/DL (6.4-8.2)
[~2018-11-01 11:27] MED LIST changes: -TRAZ-189 PO; +TRAZ-222 PO
[2018-12-13 13:52] LABS: BASOPHILS % (AUTO) 1 % (0-10); EOSINOPHILS # (AUTO) 0.2 10^3/uL (0.0-0.3); EOSINOPHILS % (AUTO) 3 % (0-10); HEMATOCRIT 41 % (35-52); HEMOGLOBIN 13.1 G/DL (11.5-16.0); LYMPHOCYTES # (AUTO) 1.1 X 10^3 (1.0-4.0); LYMPHOCYTES % (AUTO) 16 % (12-44); MEAN CORPUSCULAR HEMOGLOBIN 29 PG (25-34); MEAN CORPUSCULAR HGB CONC 32 G/DL (32-36); MEAN CORPUSCULAR VOLUME 90 FL (80-99); MEAN PLATELET VOLUME 10.7 FL (7.4-10.4); MONOCYTES # (AUTO) 0.5 X 10^3 (0.0-1.0); MONOCYTES % (AUTO) 8 % (0-12); NEUTROPHILS # (AUTO) 4.8 X 10^3 (1.8-7.8); NEUTROPHILS % (AUTO) 73 % (42-75); PLATELET COUNT 173 10^3/uL (130-400); RED CELL DISTRIBUTION WIDTH 13.7 % (10.0-14.5); WHITE BLOOD COUNT 6.6 10^3/uL (4.3-11.0)
[2018-12-13 14:17] LABS: ALBUMIN 4.1 GM/DL (3.2-4.5); BILIRUBIN,TOTAL 0.7 MG/DL (0.1-1.0); CALCIUM 9.3 MG/DL (8.5-10.1); CREATININE SERUM 1.38 MG/DL (0.60-1.30); POTASSIUM 4.1 MMOL/L (3.6-5.0); TOTAL PROTEIN 6.8 GM/DL (6.4-8.2)
== END 2018-12-13 13:10 | disposition home or self-care (01) ==
LOC: ONC 11:27
PROVIDERS: ATTEND Internal Medicine Hematology & Oncology
DX: C73 Malignant neoplasm of thyroid gland (principal); E89.0 Postprocedural hypothyroidism; I48.0 Paroxysmal atrial fibrillation; N18.3 Chronic kidney disease, stage 3 (moderate); G47.33 Obstructive sleep apnea (adult) (pediatric); E66.01 Morbid (severe) obesity due to excess calories; Z68.41 Body mass index [BMI] 40.0-44.9, adult; Z79.01 Long term (current) use of anticoagulants; Z79.899 Other long term (current) drug therapy
CPT/HCPCS: 36415; 80053; 84432; 84443; 85025; 86800; 99213

== ENCOUNTER 2019-03-07 10:58 | Outpatient (RCR) | payer OTHER ==
[2019-03-07 11:18] LABS: BASOPHILS % (AUTO) 1 % (0-10); EOSINOPHILS % (AUTO) 0 % (0-10); HEMATOCRIT 44 % (35-52); HEMOGLOBIN 14.2 G/DL (11.5-16.0); LYMPHOCYTES # (AUTO) 1.2 X 10^3 (1.0-4.0); LYMPHOCYTES % (AUTO) 16 % (12-44); MEAN CORPUSCULAR HEMOGLOBIN 29 PG (25-34); MEAN CORPUSCULAR HGB CONC 32 G/DL (32-36); MEAN CORPUSCULAR VOLUME 90 FL (80-99); MEAN PLATELET VOLUME 10.8 FL (7.4-10.4); MONOCYTES # (AUTO) 0.5 X 10^3 (0.0-1.0); MONOCYTES % (AUTO) 7 % (0-12); NEUTROPHILS # (AUTO) 5.6 X 10^3 (1.8-7.8); NEUTROPHILS % (AUTO) 77 % (42-75); PLATELET COUNT 219 10^3/uL (130-400); RED CELL DISTRIBUTION WIDTH 13.7 % (10.0-14.5); WHITE BLOOD COUNT 7.3 10^3/uL (4.3-11.0)
[2019-03-07 11:39] LABS: ALBUMIN 4.4 GM/DL (3.2-4.5); BILIRUBIN,TOTAL 0.7 MG/DL (0.1-1.0); CALCIUM 9.9 MG/DL (8.5-10.1); CREATININE SERUM 1.43 MG/DL (0.60-1.30); POTASSIUM 4.2 MMOL/L (3.6-5.0); TOTAL PROTEIN 7.7 GM/DL (6.4-8.2)
== END 2019-03-13 | disposition home or self-care (01) ==
LOC: ONC 10:58
PROVIDERS: ATTEND Internal Medicine Hematology & Oncology
DX: C73 Malignant neoplasm of thyroid gland (principal); E89.0 Postprocedural hypothyroidism; I48.0 Paroxysmal atrial fibrillation; N18.3 Chronic kidney disease, stage 3 (moderate); G47.33 Obstructive sleep apnea (adult) (pediatric); E66.01 Morbid (severe) obesity due to excess calories; Z68.41 Body mass index [BMI] 40.0-44.9, adult; Z79.01 Long term (current) use of anticoagulants; Z79.899 Other long term (current) drug therapy
CPT/HCPCS: 36415; 80053; 84432; 84443; 85025; 86800; 99213

== ENCOUNTER → 2019-03-22 | Outpatient (CLI) | payer OTHER ==
[2019-03-22 10:21] LABS: CALCIUM 9.2 MG/DL (8.5-10.1); CREATININE SERUM 1.19 MG/DL (0.60-1.30); MAGNESIUM 1.7 MG/DL (1.6-2.4); POTASSIUM 4.1 MMOL/L (3.6-5.0)
== END ==
LOC: LAB 09:11
PROVIDERS: ATTEND Nurse Practitioner Family
DX: I48.91 Unspecified atrial fibrillation (principal); I10 Essential (primary) hypertension; G47.33 Obstructive sleep apnea (adult) (pediatric)
CPT/HCPCS: 36415; 80048; 83735

== ENCOUNTER → 2019-03-22 | Outpatient (CLI) | payer OTHER | LOC: EDSTATUS 03-14 09:01 → ONC 09:06 | PROVIDERS: ATTEND Internal Medicine Hematology & Oncology | DX: C73 Malignant neoplasm of thyroid gland (principal); E89.0 Postprocedural hypothyroidism; I48.0 Paroxysmal atrial fibrillation; N18.3 Chronic kidney disease, stage 3 (moderate); G47.33 Obstructive sleep apnea (adult) (pediatric); E66.01 Morbid (severe) obesity due to excess calories; Z68.41 Body mass index [BMI] 40.0-44.9, adult; Z79.01 Long term (current) use of anticoagulants; Z79.899 Other long term (current) drug therapy | CPT/HCPCS: 99213 ==

== ENCOUNTER 2019-08-12 19:48 | Inpatient (IN) | payer SELFPAY ==
[~2019-08-12] VITALS: Ht 162.5 cm; Wt 114.0 kg
[~2019-08-12 19:48] MED LIST changes: +DILT-28 PO; -DILT180C90 PO; +LISI1TAB25 PO; -LISI1TAB8 PO; -METO-395 PO; +MTP100TCR PO; +OMEP40CA27 PO; -OMEP40CA36 PO; -TRAZ-222 PO; +TRZ50T PO
--- NOTE | 2019-08-12 20:04 | ED Neurological Problem ---
General Chief Complaint: Neuro-Stroke Like Symptoms Stated Complaint: STROKE Source: patient, EMS Exam Limitations: no limitations History of Present Illness Date Seen by Provider: Aug 12, 2019 Time Seen by Provider: 19:58 Initial Comments Jacy Tompkins [facility] from her home [facility]. She is noticed some lower extremity swelling bilaterally since Thursday of this week. Starting today she had some lethargy, general weakness, slurred speech and left- sided weakness. She has a history of atrial fibrillation managed on Pradaxa. She has fallen twice today. Timing/Duration: other (8-12 hrs) Severity: moderate Associated Symptoms: slurred speech Allergies and Home Medications Allergies Coded Allergies: No Known Drug Allergies (Unverified , 09/18/16) Home Medications Metoprolol Succinate 200 Mg Tab.er.24h, 200 MG PO DAILY, (Reported) Patient Home Medication List Home Medication List Reviewed: Yes Review of Systems Review of Systems Constitutional: see HPI, dizziness, weakness Eyes: No Symptoms Reported Ears, Nose, Mouth, Throat: no symptoms reported Respiratory: no symptoms reported Cardiovascular: no symptoms reported Genitourinary: no symptoms reported Musculoskeletal: see HPI Skin: no symptoms reported Psychiatric/Neurological: See HPI; Denies Headache Endocrine: No Symptoms Reported Past Ugerjad-Psytuc-Lirrfl Hx Patient Social History Recent Foreign Travel: No Contact w/Someone Who Travel: No Recent Hopitalizations: No (AUG 2016-THYROIDECTOMY LEFT) Immunizations Up To Date Date of Influenza Vaccine: Apr 14, 2016 Seasonal Allergies Seasonal Allergies: No Past Medical History Surgeries: Yes (LEFT THYROIDECTOMY) Gallbladder, Tonsillectomy Respiratory: No Sleep Apnea Cardiac: Yes Atrial Fibrillation, Chronic Edema/Swelling, Hypertension Neurological: No Reproductive Disorders: No Female Reproductive Disorders: Denies Sexually Transmitted Disease: No HIV/AIDS: No Gastrointestinal: Yes Gastroesophageal Reflux Musculoskeletal: No Endocrine: Yes (THYROID NODULES) Loss of Vision: Bilateral Hearing Impairment: Denies Cancer: Yes Thyroid Psychosocial: Yes Depression Integumentary: No Blood Disorders: No Adverse Reaction/Blood Tranf: No Physical Exam Vital Signs Vital Signs - First Documented Capillary Refill : Height, Weight, BMI Height: 5'4.00" Weight: 242lbs. 0.0oz. 109.205663eg; 41.5 BMI Method:Estimated General Appearance: WD/WN, no apparent distress, obese, other (chronically ill, appears older than stated age) HEENT: PERRL/EOMI, normal ENT inspection Neck: non-tender, full range of motion Respiratory: no respiratory distress, no accessory muscle use Gastrointestinal: normal bowel sounds, non tender, soft Neurologic/Psychiatric: alert, normal mood/affect Crainal Nerves: normal hearing, normal speech, PERRL Coordination/Gait: normal finger to nose Skin: normal color, warm/dry Stroke Onset of Symptoms Date of Onset of Symptoms: Aug 12, 2019 NIH Stroke Scale Assessment Select: Initial Level of Consciousness: 0=Alert (0), Level of Consciousness-Q uestions: 0=Answers both month/age (0), LOC Commands: 1=Performs one task (1), Gaze: Partial Gaze Palsy eye stain on the patient's left side and tell her to look at me. She will raise her head and look up or look to the right but does not move her eyes to the left. If she does look to the left she moves her entire head. (1), Visual Mcintosh: 0=No visual loss (0), Facial Movement (Facial Paresis): 0=Normal symmetrical mnt (0), Motor Function-Arms Right: 0=No drift (0), Motor Function-Arms Left: 0=No drift (0), Motor Function-Legs Right: 0=No drift (0), Motor Function-Legs Left: 0=No drift (0), Limb Ataxia: 0=Absent (0), Sensory: 0=Normal:no loss (0), Best Language: 0=No aphasia (0), Dysarthria: 1=Mild to moderate loss when asked to repeat after me, her repetition of the words I've spoken R garbled and difficult to understand. Her other speech is not difficult to understand or garbled. (1), Extinction & Inattention: 0=No abnormality (0), Total: 3 Stroke Thrombolytic Exclusion Age 18 or Over: Yes Oral Anticoagulants: Yes TPA Contraindication: Yes Progress/Results/Core Measures Results/Orders Lab Results Laboratory Tests Test 08/12/19 19:56 08/12/19 20:28 08/12/19 20:41 Range/Units White Blood Count 9.0 4.3-11.0 10^3/uL Red Blood Count 4.36 4.35-5.85 10^6/uL Hemoglobin 12.3 11.5-16.0 G/DL Hematocrit 39 35-52 % Mean Corpuscular Volume 89 80-99 FL Mean Corpuscular Hemoglobin 28 25-34 PG Mean Corpuscular Hemoglobin Concent 32 32-36 G/DL Red Cell Distribution Width 15.0 H 10.0-14.5 % Platelet Count 174 130-400 10^3/uL Mean Platelet Volume 11.0 H 7.4-10.4 FL Neutrophils (%) (Auto) 89 H 42-75 % Lymphocytes (%) (Auto) 6 L 12-44 % Monocytes (%) (Auto) 5 0-12 % Eosinophils (%) (Auto) 0 0-10 % Basophils (%) (Auto) 0 0-10 % Neutrophils # (Auto) 8.1 H 1.8-7.8 X 10^3 Lymphocytes # (Auto) 0.5 L 1.0-4.0 X 10^3 Monocytes # (Auto) 0.4 0.0-1.0 X 10^3 Eosinophils # (Auto) 0.0 0.0-0.3 10^3/uL Basophils # (Auto) 0.0 0.0-0.1 10^3/uL Neutrophils % (Manual) 88 % Lymphocytes % (Manual) 6 % Monocytes % (Manual) 3 % Band Neutrophils 3 % Blood Morphology Comment NORMAL Prothrombin Time 14.3 12.2-14.7 SEC INR Comment 1.1 0.8-1.4 Activated Partial Thromboplast Time 27 24-35 SEC D-Dimer 0.79 H 0.00-0.49 UG/ML Sodium Level 142 135-145 MMOL/L Potassium Level 4.5 3.6-5.0 MMOL/L Chloride Level 111 H 98-107 MMOL/L Carbon Dioxide Level 19 L 21-32 MMOL/L Anion Gap 12 5-14 MMOL/L Blood Urea Nitrogen 23 H 7-18 MG/DL Creatinine 1.25 0.60-1.30 MG/DL Estimat Glomerular Filtration Rate 44 BUN/Creatinine Ratio 18 Glucose Level 127 H 70-105 MG/DL Calcium Level 9.1 8.5-10.1 MG/DL Corrected Calcium 9.3 8.5-10.1 MG/DL Total Bilirubin 0.8 0.1-1.0 MG/DL Aspartate Amino Transf (AST/SGOT) 17 5-34 U/L Alanine Aminotransferase (ALT/SGPT) 21 0-55 U/L Alkaline Phosphatase 81 40-136 U/L Troponin I 0.031 H <0.028 NG/ML B-Type Natriuretic Peptide 656.1 H <100.0 PG/ML Total Protein 6.3 L 6.4-8.2 GM/DL Albumin 3.8 3.2-4.5 GM/DL Glucometer 105 70-110 MG/DL Urine Color YELLOW Urine Clarity SL CLOUDY Urine pH 5.5 5-9 Urine Specific [place] >=1.030 1.016-1.022 Urine Protein TRACE H NEGATIVE Urine Glucose (UA) NEGATIVE NEGATIVE Urine Ketones TRACE H NEGATIVE Urine Nitrite NEGATIVE NEGATIVE Urine Bilirubin NEGATIVE NEGATIVE Urine Urobilinogen 0.2 < = 1.0 MG/DL Urine Leukocyte Esterase NEGATIVE NEGATIVE Urine RBC (Auto) 1+ H NEGATIVE Urine RBC 0-2 /HPF Urine WBC 0-2 /HPF Urine Squamous Epithelial Cells 5-10 /HPF Urine Crystals PRESENT H /LPF Urine Amorphous Sediment LARGE REYNOLD URATES H /LPF Urine Bacteria LARGE H /HPF Urine Casts NONE /LPF Urine Mucus NEGATIVE /LPF Urine Culture Indicated YES My Orders Orders - ANGELITO LOPEZ APRN Cbc With Automated Diff (08/12/19 19:56) Protime With Inr (08/12/19 19:56) Partial Thromboplastin Time (08/12/19 19:56) Comprehensive Metabolic Panel (08/12/19 19:56) Fibrin Degradation Products (08/12/19 19:56) Troponin I (08/12/19 19:56) Ua Culture If Indicated (08/12/19 19:56) Chest 1 View, Ap/Pa Only (08/12/19 19:56) Ekg Tracing (08/12/19 19:56) Accucheck Stat ONCE (08/12/19 19:56) Ed Iv/Invasive Line Start (08/12/19 19:56) Ed Iv/Invasive Line Start (08/12/19 19:56) Vital Signs Stroke Patient Q15M (08/12/19 19:56) Ct Head Wo-R/O Stroke (08/12/19 19:56) O2 (08/12/19 19:56) Intake & Output 06,14,22 (08/12/19 19:56) Monitor-Rhythm Ecg Trace Only (08/12/19 19:56) Dysphagia Screening Tool (08/12/19 19:56) BNP (08/12/19 19:56) Manual Differential (08/12/19 19:56) Urine Culture (08/12/19 20:41) Influenza A And B Antigens (08/12/19 22:26) Vital Signs/I&O 08/12/19 08/12/19 19:50 19:50 Temp 37.9 Pulse 92 Resp 22 B/P (MAP) 175/121 (139) Pulse Ox 95 95 O2 Delivery Room Air Room Air Departure Communication (Admissions) Time/Spoke to Admitting Phy: 22:[address] Jimenez, we will admit observation. Impression Primary Impression: TIA symptoms Additional Impression: Atrial fibrillation Qualified Codes: I48.91 - Unspecified atrial fibrillation Disposition: ADMITTED INPATIENT Condition: Stable Admissions Decision to Admit Reason: Admit from ER (General) Decision to Admit/Date: Aug 12, 2019 Time/Decision to Admit Time: 22:32 Departure-Patient Inst. Referrals: BASSAM GRANADO MD (PCP/Family) Primary Care Physician NIH Stroke Scale NIH Stroke Scale NIH : Select: Post CT (2231-at this time she is quite a bit more alert, her speech is clear she moves her eyes to the left side palsy. No apparent gaze palsy at this time. NIH of 0.) Level of Consciousness: 0=Alert Level of Consciousness-Questio: 0=Answers both month/age LOC Commands: 0=Performs both tasks Gaze: 0=Normal Visual Mcintosh: 0=No visual loss Facial Movement (Facial Paresi: 0=Normal symmetrical mnt Motor Function-Arms Right: 0=No drift Motor Function-Arms Left: 0=No drift Motor Function-Legs Right: 0=No drift Motor Function-Legs Left: 0=No drift Limb Ataxia: 0=Absent Sensory: 0=Normal:no loss Best Language: 0=No aphasia Dysarthria: 0=Normal Extinction & Inattention: 0=No abnormality NIH Stroke Scale Score: 0 ANGELITO LOPEZ APRN Aug 12, 2019 20:04
[2019-08-12] MEDS ORDERED: LEVO300T5 PO (20:05)
[2019-08-12] MEDS ORDERED: LISI-552 PO (20:05)
[2019-08-12] MEDS ORDERED: DILT240C91 PO (20:05)
[2019-08-12] MEDS ORDERED: DABI150C5 PO (20:06)
[2019-08-12] MEDS ORDERED: TRAZ-190 PO (20:06)
[2019-08-12 20:08] LABS: BASOPHILS % (AUTO) 0 % (0-10); EOSINOPHILS % (AUTO) 0 % (0-10); HEMATOCRIT 39 % (35-52); HEMOGLOBIN 12.3 G/DL (11.5-16.0); LYMPHOCYTES # (AUTO) 0.5 X 10^3 (1.0-4.0); LYMPHOCYTES % (AUTO) 6 % (12-44); MEAN CORPUSCULAR HEMOGLOBIN 28 PG (25-34); MEAN CORPUSCULAR HGB CONC 32 G/DL (32-36); MEAN CORPUSCULAR VOLUME 89 FL (80-99); MONOCYTES # (AUTO) 0.4 X 10^3 (0.0-1.0); MONOCYTES % (AUTO) 5 % (0-12); NEUTROPHILS # (AUTO) 8.1 X 10^3 (1.8-7.8); NEUTROPHILS % (AUTO) 89 % (42-75); PLATELET COUNT 174 10^3/uL (130-400)
[2019-08-12] MEDS ORDERED: OMEP40CA27 PO (20:08)
[2019-08-12] MEDS ORDERED: DOXA2TAB2 PO (20:08)
[2019-08-12] MEDS ORDERED: FLEC100T PO (20:08)
[2019-08-12] MEDS ORDERED: METO200T48 PO (20:08)
--- NOTE | 2019-08-12 20:21 | Diagnostic Imaging Report ---
INDICATION: Stroke like symptoms COMPARISON: 12/22/2017 FINDINGS: Single frontal view of the chest demonstrates stable mild cardiomegaly. Vasculature, however, is within normal limits. The lungs are well aerated and clear. No large pleural effusion or pneumothorax is seen. The visualized osseous structures show no acute abnormalities. IMPRESSION: 1. Mild cardiomegaly, but no evidence of failure or focal infiltrate. Dictated by: Dictated on workstation # [id number]
[2019-08-12 20:28] LABS: ALBUMIN 3.8 GM/DL (3.2-4.5); BILIRUBIN,TOTAL 0.8 MG/DL (0.1-1.0); CALCIUM 9.1 MG/DL (8.5-10.1); CREATININE SERUM 1.25 MG/DL (0.60-1.30); POTASSIUM 4.5 MMOL/L (3.6-5.0); TOTAL PROTEIN 6.3 GM/DL (6.4-8.2)
--- NOTE | 2019-08-12 20:29 | Diagnostic Imaging Report ---
PROCEDURE: CT head wo r/o stroke. TECHNIQUE: Multiple contiguous axial images were obtained through the brain without the use of intravenous contrast. Auto Exposure Controls were utilized during the CT exam to meet ALARA standards for radiation dose reduction. INDICATION: Stroke COMPARISON: None available FINDINGS: No intracranial hemorrhage. No intracranial mass, mass effect, midline shift, herniation, hydrocephalus, or extra-axial fluid collection. Periventricular and subcortical white matter hypodensities are present, greatest within the right parietal lobe. Though nonspecific, these most likely relate to moderate background chronic small vessel white matter ischemic disease. No CT evidence of an acute ischemic infarction. The orbits are unremarkable. The paranasal sinuses are clear. The calvarium and extracalvarial soft tissues are unremarkable. IMPRESSION: Nonspecific periventricular and subcortical white matter hypodensities, favored to relate to underlying moderate background chronic small vessel white matter ischemic disease. If there is clinical concern for underlying recent infarction, further evaluation with MRI of the brain could be obtained. Dictated by: Dictated on workstation # [id number]
[2019-08-12 21:09] LABS: BILIRUBIN,URINE NEGATIVE (NEGATIVE); CLARITY,URINE SL CLOUDY; COLOR,URINE YELLOW; GLUCOSE, URINE (UA) NEGATIVE (NEGATIVE); KETONES,URINE TRACE (NEGATIVE); LEUKOCYTE ESTERASE ,URINE NEGATIVE (NEGATIVE); NITRITE,URINE NEGATIVE (NEGATIVE); PH,URINE 5.5 (5-9); PROTEIN,URINE TRACE (NEGATIVE)
[2019-08-12 21:11] LABS: BAND NEUTROPHILS 3 %; LYMPHOCYTES % (MANUAL) 6 %; NEUTROPHILS % (MANUAL) 88 %
[2019-08-12 21:12] LABS: MONOCYTES % (MANUAL) 3 %; RBC MORPH NORMAL
[2019-08-12 21:23] LABS: RBC,URINE 0-2 /HPF
[2019-08-12 21:24] LABS: AMORPHOUS SEDIMENT,UR LARGE AMOR URATES /LPF; BACTERIA,URINE LARGE /HPF; WBC,URINE 0-2 /HPF
[2019-08-12 22:40] LABS: FIBRIN DEGRADATION PRODUCTS 0.79 UG/ML (0.00-0.49); INR 1.1 (0.8-1.4); PROTHROMBIN TIME PATIENT 14.3 SEC (12.2-14.7)
[2019-08-12 23:10] VITALS: BP 138/96
[2019-08-12 23:30] VITALS: BP 138/96
[2019-08-12 23:45] VITALS: BP 126/99
[2019-08-13] VITALS (10 sets, daily range): BP systolic 96–158; BP diastolic 56–104
[2019-08-13 03:39] LABS: BASOPHILS % (AUTO) 0 % (0-10); EOSINOPHILS % (AUTO) 0 % (0-10); HEMATOCRIT 34 % (35-52); HEMOGLOBIN 10.9 G/DL (11.5-16.0); LYMPHOCYTES # (AUTO) 1.3 X 10^3 (1.0-4.0); LYMPHOCYTES % (AUTO) 17 % (12-44); MEAN CORPUSCULAR HEMOGLOBIN 29 PG (25-34); MEAN CORPUSCULAR HGB CONC 32 G/DL (32-36); MEAN CORPUSCULAR VOLUME 90 FL (80-99); MEAN PLATELET VOLUME 11.1 FL (7.4-10.4); MONOCYTES # (AUTO) 0.5 X 10^3 (0.0-1.0); MONOCYTES % (AUTO) 7 % (0-12); NEUTROPHILS # (AUTO) 5.9 X 10^3 (1.8-7.8); NEUTROPHILS % (AUTO) 77 % (42-75); PLATELET COUNT 171 10^3/uL (130-400); WHITE BLOOD COUNT 7.7 10^3/uL (4.3-11.0)
[2019-08-13 04:02] LABS: ALANINE AMINOTRANSFERASE 17 U/L (0-55); ALBUMIN 3.3 GM/DL (3.2-4.5); ALKALINE PHOSPHATASE 69 U/L (40-136); BUN/CREATININE RATIO 20; CALCIUM 8.6 MG/DL (8.5-10.1); CARBON DIOXIDE 19 MMOL/L (21-32); CHLORIDE 110 MMOL/L (98-107); CHOLESTEROL 158 MG/DL (< 200); CREATININE SERUM 1.09 MG/DL (0.60-1.30); GFR ESTIMATED 51; GLUCOSE 99 MG/DL (70-105); HDL CHOLESTEROL 43 MG/DL (40-60); POTASSIUM 4.1 MMOL/L (3.6-5.0); SODIUM 141 MMOL/L (135-145); TOTAL PROTEIN 5.5 GM/DL (6.4-8.2); TRIGLYCERIDES 72 MG/DL (<150); VLDL CHOLESTEROL 14 MG/DL (5-40)
--- NOTE | 2019-08-13 08:43 | Consultation-Cardiology ---
HPI-Cardiology Cardiology Consultation Date of Consultation 08/13/19 Date of Admission Time Seen by Provider: 08:38 Indication: TIA HPI 59-year-old lady with history of paroxysmal atrial fibrillation, came in by ambulance from [place], she is in assisted living and noted that she is been having increasing weakness, sustained 2 falls yesterday, on arrival to the ER she was noted to have slurred speech and some weakness on the left side. Fully resolved. Currently feeling well, still having some numbness in her right finger. Reporting mild pedal edema. No syncope or near syncopal episodes. She has been seen and followed by Dr. Ruano and maintained on Pradaxa as an outpatient Home Medications & Allergies Allergies: Coded Allergies: No Known Drug Allergies (Unverified , 09/18/16) Home Medication List Reviewed: Yes Reviewed from Dr. Ruano's clinic note AIJ-Yqnvaa-Qfemwh Hx Patient Social History Employed/Student: retired Alcohol Use: Denies Use Recreational Drug Use: No Smoking Status: Never a Smoker 2nd Hand Smoke Exposure: No Recent Foreign Travel: No Recent Infectious Disease Expo: No Recent Hopitalizations: No (AUG 2016-THYROIDECTOMY LEFT) Immunizations Up To Date Tetanus Booster (TDap): Unknown Date of Influenza Vaccine: May 19, 2019 Past Medical History Discussed below Family Medical History Family Medical Hx Noncontributory to her current condition Review of Systems-General Review of Systems Constitutional: see HPI, dizziness, weakness Respiratory: see HPI; No cough; dyspnea on exertion; No hemoptysis, No orthopnea, No phlegm, No short of breath, No stridor, No wheezing, No other Cardiovascular: see HPI; No chest pain; edema; No Hx of Intervention, No palpitations, No syncope, No vascular heart diseas, No other Gastrointestinal: see HPI Genitourinary: no symptoms reported, see HPI Musculoskeletal: see HPI, back pain, muscle weakness Skin: no symptoms reported, see HPI Psychiatric/Neurological: See HPI, Numbness, Paresthesia Reviewed Test Results Reviewed Test Results Lab Laboratory Tests Test 08/12/19 19:56 08/12/19 20:28 08/12/19 20:41 08/13/19 03:31 Range/Units White Blood Count 9.0 7.7 4.3-11.0 10^3/uL Red Blood Count 4.36 3.81 L 4.35-5.85 10^6/uL Hemoglobin 12.3 10.9 L 11.5-16.0 G/DL Hematocrit 39 34 L 35-52 % Mean Corpuscular Volume 89 90 80-99 FL Mean Corpuscular Hemoglobin 28 29 25-34 PG Mean Corpuscular Hemoglobin Concent 32 32 32-36 G/DL Red Cell Distribution Width 15.0 H 15.0 H 10.0-14.5 % Platelet Count 174 171 130-400 10^3/uL Mean Platelet Volume 11.0 H 11.1 H 7.4-10.4 FL Neutrophils (%) (Auto) 89 H 77 H 42-75 % Lymphocytes (%) (Auto) 6 L 17 12-44 % Monocytes (%) (Auto) 5 7 0-12 % Eosinophils (%) (Auto) 0 0 0-10 % Basophils (%) (Auto) 0 0 0-10 % Neutrophils # (Auto) 8.1 H 5.9 1.8-7.8 X 10^3 Lymphocytes # (Auto) 0.5 L 1.3 1.0-4.0 X 10^3 Monocytes # (Auto) 0.4 0.5 0.0-1.0 X 10^3 Eosinophils # (Auto) 0.0 0.0 0.0-0.3 10^3/uL Basophils # (Auto) 0.0 0.0 0.0-0.1 10^3/uL Neutrophils % (Manual) 88 % Lymphocytes % (Manual) 6 % Monocytes % (Manual) 3 % Band Neutrophils 3 % Blood Morphology Comment NORMAL Prothrombin Time 14.3 12.2-14.7 SEC INR Comment 1.1 0.8-1.4 Activated Partial Thromboplast Time 27 24-35 SEC D-Dimer 0.79 H 0.00-0.49 UG/ML Sodium Level 142 141 135-145 MMOL/L Potassium Level 4.5 4.1 3.6-5.0 MMOL/L Chloride Level 111 H 110 H 98-107 MMOL/L Carbon Dioxide Level 19 L 19 L 21-32 MMOL/L Anion Gap 12 12 5-14 MMOL/L Blood Urea Nitrogen 23 H 22 H 7-18 MG/DL Creatinine 1.25 1.09 0.60-1.30 MG/DL Estimat Glomerular Filtration Rate 44 51 BUN/Creatinine Ratio 18 20 Glucose Level 127 H 99 70-105 MG/DL Calcium Level 9.1 8.6 8.5-10.1 MG/DL Corrected Calcium 9.3 9.2 8.5-10.1 MG/DL Total Bilirubin 0.8 1.0 0.1-1.0 MG/DL Aspartate Amino Transf (AST/SGOT) 17 14 5-34 U/L Alanine Aminotransferase (ALT/SGPT) 21 17 0-55 U/L Alkaline Phosphatase 81 69 40-136 U/L Troponin I 0.031 H < 0.028 <0.028 NG/ML B-Type Natriuretic Peptide 656.1 H <100.0 PG/ML Total Protein 6.3 L 5.5 L 6.4-8.2 GM/DL Albumin 3.8 3.3 3.2-4.5 GM/DL Glucometer 105 70-110 MG/DL Urine Color YELLOW Urine Clarity SL CLOUDY Urine pH 5.5 5-9 Urine Specific [place] >=1.030 1.016-1.022 Urine Protein TRACE H NEGATIVE Urine Glucose (UA) NEGATIVE NEGATIVE Urine Ketones TRACE H NEGATIVE Urine Nitrite NEGATIVE NEGATIVE Urine Bilirubin NEGATIVE NEGATIVE Urine Urobilinogen 0.2 < = 1.0 MG/DL Urine Leukocyte Esterase NEGATIVE NEGATIVE Urine RBC (Auto) 1+ H NEGATIVE Urine RBC 0-2 /HPF Urine WBC 0-2 /HPF Urine Squamous Epithelial Cells 5-10 /HPF Urine Crystals PRESENT H /LPF Urine Amorphous Sediment LARGE REYNOLD URATES H /LPF Urine Bacteria LARGE H /HPF Urine Casts NONE /LPF Urine Mucus NEGATIVE /LPF Urine Culture Indicated YES Triglycerides Level 72 <150 MG/DL Cholesterol Level 158 < 200 MG/DL LDL Cholesterol Direct 111 1-129 MG/DL VLDL Cholesterol 14 5-40 MG/DL HDL Cholesterol 43 40-60 MG/DL Physical Exam Physical Exam Vital Signs Vital Signs - First Documented Capillary Refill : Less Than 3 Seconds Height, Weight, BMI Height: 5'4.00" Weight: 242lbs. 0.0oz. 109.188153yd; 42.03 BMI Method:Estimated General Appearance: No Apparent Distress, WD/WN Eyes: Bilateral Eye Normal Inspection, Bilateral Eye PERRL, Bilateral Eye EOMI HEENT: PERRL/EOMI, TMs Normal, Normal ENT Inspection, Pharynx Normal, Moist Mucous Membranes Neck: Full Range of Motion, Normal Inspection, Non Tender, Supple, Carotid Bruit Respiratory: Chest Non Tender, Normal Breath Sounds, No Accessory Muscle Use, No Respiratory Distress Cardiovascular: Regular Rate, Rhythm, No Edema, No Gallop, No JVD, No Murmur, Normal Peripheral Pulses Gastrointestinal: Normal Bowel Sounds, No Organomegaly, No Pulsatile Mass, Non Tender, Soft Back: Normal Inspection, No CVA Tenderness, No Vertebral Tenderness Extremity: Normal Capillary Refill, Normal Inspection, Normal Range of Motion, Non Tender, No Calf Tenderness, No Pedal Edema Neurologic/Psychiatric: Alert, Oriented x3, No Motor/Sensory Deficits, Normal Mood/Affect Skin: Normal Color, Warm/Dry Lymphatic: No Adenopathy A/P-Cardiology Admission Diagnosis TIA Paroxysmal atrial fibrillation Hypertension Hypothyroidism Assessment/Plan TIA, full recovery, maintained on Pradaxa as an outpatient, add aspirin 81 mg and monitor tolerance and response. Paroxysmal atrial fibrillation, currently in atrial fibrillation with controlled rate. I will evaluate 2-D echocardiogram, has been followed and monitored by Dr. Ruano Hypertension, restart home medication monitor blood pressure Hyperlipidemia, LDL 111, start Lipitor 20 mg daily and monitor tolerance and response History of thyroidectomy in September 2016 secondary to thyroid cancer, received radioactive iodine ablation in November 2016, maintained on levothyroxin, monitored by primary care physician Chronic kidney disease, history of renal failure, renal function are better at this time. Obesity, BMI 42. Clinical Quality Measures DVT/VTE Risk/Contraindication: Risk Factor Score Per Nursin RFS Level Per Nursing on Admit: 4+=Very High Stroke: Date of last known well: Aug 12, 2019 HASMUKH FUNES MD Aug 13, 2019 08:43
[2019-08-13] MEDS: DABIGATRAN 150 MG (PRADAXA) CAPSULE PO SCH ×2 (09:23→19:51)
[2019-08-13] MEDS: lisINopril 20 MG (PRINIVIL) TABLET PO SCH (09:23)
[2019-08-13] MEDS: ASPIRIN E.C. 81 MG (ECOTRIN) TAB PO SCH (09:23)
[2019-08-13] MEDS: meTOprolol TARTRATE 50 MG (LOPRESSOR) TAB PO SCH ×2 (09:23→19:51)
--- NOTE | 2019-08-13 09:40 | NUR ---
This nurse notified of patient having urinary frequency and low output. Will continue to monitor.
[2019-08-13] MEDS: cefTRIAXone FOR IV USE 1,000 MG in WATER (STERILE) FOR INJECTION 10 ML IV SCH (10:26)
--- NOTE | 2019-08-13 14:32 | History & Physical-Hospitalist ---
History of Present Illness HPI/Chief Complaint Pt is a 59yoCF with a PMH of HTN and a-fib who presented to the ER due to falls and slurred speech. She states that her symptoms gradually worsened throughout the past week and she fell yesterday twice. She denied hitting her head or any injuries. She reports compliance with her anticoagulation. She complains of slurred speech but she is not apparently slurring and when asked to clarify she states that she can't find her words like normal. Source: patient Date Seen 08/13/19 Time Seen by a Provider: 08:15 Attending Physician Dakota Tapia MD PCP No,Local Physician Referring Physician Date of Admission Aug 12, 2019 at 22:27 Home Medications & Allergies Home Medications Reviewed patient Home Medication Reconciliation performed by pharmacy medication reconciliations magnetic testing technician and/or nursing. Patients Allergies have been reviewed. Allergies Allergies Coded Allergies No Known Drug Allergies (Unverified09/18/16) Past Kfmqxef-Lhdmal-Faxbnl Hx Past Med/Social Hx: Reviewed Nursing Past Med/Soc Hx Patient Social History Employed/Student: retired Alcohol Use: Denies Use Recreational Drug Use: No Smoking Status: Never a Smoker 2nd Hand Smoke Exposure: No Recent Foreign Travel: No Contact w/other who traveled: No Recent Hopitalizations: No (AUG 2016-THYROIDECTOMY LEFT) Recent Infectious Disease Expo: No Immunizations Up To Date Tetanus Booster (TDap): Unknown Date of Influenza Vaccine: May 19, 2019 Seasonal Allergies Seasonal Allergies: No Past Medical History Surgeries: Gallbladder, Thyroidectomy, Tonsillectomy Cardiac: Atrial Fibrillation, Chronic Edema/Swelling, Hypertension : No Reproductive: No Sexually Transmitted Disease: No HIV/AIDS: No Female Reproductive Disorders: Denies Menopausal Genitourinary: UTI-Chronic Gastrointestinal: Gastroesophageal Reflux Loss of Vision: Bilateral Hearing Impairment: Denies Cancer: Thyroid Psychosocial: Depression History of Blood Disorders: No Adverse Reaction to Blood [place]: No Family History Reviewed Nursing Family Hx No Pertinent Family Hx Review of Systems Constitutional: No chills, No fever EENTM: no symptoms reported Respiratory: no symptoms reported Cardiovascular: no symptoms reported Gastrointestinal: No abdominal pain, No constipation, No diarrhea, No nausea, No vomiting Genitourinary: No dysuria; frequency Musculoskeletal: no symptoms reported Skin: no symptoms reported Psychiatric/Neurological: See HPI Physical Exam Physical Exam Vital Signs Vital Signs - First Documented Capillary Refill : Less Than 3 Seconds Height, Weight, BMI Height: 5'4.00" Weight: 242lbs. 0.0oz. 109.482015mn; 42.03 BMI Method:Estimated General Appearance: No Apparent Distress, Chronically ill, Obese HEENT: Moist Mucous Membranes; No Scleral Icterus (L), No Scleral Icterus (R) Respiratory: Lungs Clear, No Accessory Muscle Use, No Respiratory Distress Cardiovascular: Regular Rate, Rhythm, No Murmur Gastrointestinal: Normal Bowel Sounds, Non Tender, Soft Neurologic/Psychiatric: Alert, Oriented x3, Normal Mood/Affect, Aphasia (expressive); No Facial Droop, No Motor Weakness, No Sensory Deficit Results Results/Procedures Labs Laboratory Tests 08/12/19 19:56 08/13/19 03:31 Patient resulted labs reviewed. Imaging: Reviewed Imaging Report Assessment/Plan Admission Diagnosis Expressive Aphasia Admission Status: Inpatient Order (span 2 midnights) Reason for Inpatient Admission: rule out stroke Assessment and Plan Expressive Aphasia CT Head negative TIA vs CVA If no improvement by tomorrow will need MRI Thursday PT/OT/CAREER DEVELOPMENT DIRECTOR ASA given, Statin ordered pA-Fib Cardiology consulted, appreciate recs echo ordered in a-fib but rate controlled telemetry bacteruria has frequency Started Rocephin Hypothyroidism Resume synthroid Clinical Quality Measures DVT/VTE Risk/Contraindication: Risk Factor Score Per Nursin RFS Level Per Nursing on Admit: 4+=Very High Stroke: Date of last known well: Aug 12, 2019 DAKOTA TAPIA MD Aug 13, 2019 14:32
--- NOTE | 2019-08-13 16:34 | NUR ---
Telephone order received from to do Q4H Neurochecks. This nurse notified that pts b/p is 159/100 pulse 70 currently, will continue to monitor.
[2019-08-14] VITALS (9 sets, daily range): BP systolic 108–195; BP diastolic 88–125
[2019-08-14 03:41] LABS: BASOPHILS % (AUTO) 0 % (0-10); EOSINOPHILS % (AUTO) 0 % (0-10); HEMATOCRIT 33 % (35-52); HEMOGLOBIN 10.4 G/DL (11.5-16.0); LYMPHOCYTES # (AUTO) 1.3 X 10^3 (1.0-4.0); LYMPHOCYTES % (AUTO) 22 % (12-44); MEAN CORPUSCULAR HGB CONC 31 G/DL (32-36); MEAN CORPUSCULAR VOLUME 91 FL (80-99); MEAN PLATELET VOLUME 10.5 FL (7.4-10.4); MONOCYTES # (AUTO) 0.5 X 10^3 (0.0-1.0); MONOCYTES % (AUTO) 8 % (0-12); NEUTROPHILS # (AUTO) 4.2 X 10^3 (1.8-7.8); NEUTROPHILS % (AUTO) 70 % (42-75); PLATELET COUNT 155 10^3/uL (130-400); RED CELL DISTRIBUTION WIDTH 15.5 % (10.0-14.5)
[2019-08-14 04:02] LABS: MEAN CORPUSCULAR HEMOGLOBIN 28 PG (25-34)
[2019-08-14 04:23] LABS: CREATININE SERUM 1.15 MG/DL (0.60-1.30); POTASSIUM 4.1 MMOL/L (3.6-5.0)
[2019-08-14 04:24] LABS: ALBUMIN 3.2 GM/DL (3.2-4.5); BILIRUBIN,TOTAL 0.6 MG/DL (0.1-1.0); CALCIUM 8.4 MG/DL (8.5-10.1); TOTAL PROTEIN 5.2 GM/DL (6.4-8.2)
[2019-08-14] MEDS: LEVOTHYROXINE 150 MCG (LEVOTHROID) TAB PO SCH (06:10)
[2019-08-14] MEDS: DABIGATRAN 150 MG (PRADAXA) CAPSULE PO SCH ×2 (08:48→20:08)
[2019-08-14] MEDS: meTOprolol TARTRATE 50 MG (LOPRESSOR) TAB PO SCH ×2 (08:48→20:08)
[2019-08-14] MEDS: lisINopril 20 MG (PRINIVIL) TABLET PO SCH (08:48)
[2019-08-14] MEDS: ASPIRIN E.C. 81 MG (ECOTRIN) TAB PO SCH (08:48)
[2019-08-14] MEDS: cefTRIAXone FOR IV USE 1,000 MG in WATER (STERILE) FOR INJECTION 10 ML IV SCH (08:50)
--- NOTE | 2019-08-14 08:59 | Cardiology Progress Note ---
Subjective Date Seen by Provider: Aug 14, 2019 Time Seen by Provider: 08:57 Subjective/Events-last exam Patient is laying down in bed, complaining of generalized weakness. No chest pain. No focal deficits Review of Systems General: No Chills, No Night Sweats, No Fatigue; Malaise; No Appetite, No Other HEENT: No Head Aches, No Visual Changes, No Eye Pain, No Ear Pain, No Dysphasia, No Sinus Congestion, No Post Nasal Drip, No Sore Throat, No Other Pulmonary: No Dyspnea, No Cough, No Pleuritic Chest Pain, No Other Cardiovascular: No: Chest Pain, Palpitations, Orthopnea, Paroxysmal Noc. Dyspnea, Edema, Lt Headedness, Other Objective-Cardiology Exam Last Set of Vital Signs Vital Signs 08/14/19 08/14/19 03:11 04:00 Temp 36.8 Pulse 70 Resp 19 B/P (MAP) 161/104 (123) Pulse Ox 96 O2 Delivery Room Air Capillary Refill : Less Than 3 Seconds I&O Intake and Output 08/14/19 00:00 Intake Total 1000 ml Output Total 975 ml Balance 25 ml Intake Oral 1000 ml Output Urine Total 975 ml # Voids 12 # Bowel Movements 1 General: Alert, Oriented X3, Cooperative HEENT: Atraumatic, PERRLA Neck: Supple, No JVD, No Thyromegaly Lungs: Clear to Auscultation, Normal Air Movement Heart: Normal S1, Normal S2, No Murmurs, Other (Atrial fibrillation) Abdomen: Normal Bowel Sounds, Soft, No Tenderness, No Hepatosplenomegaly, No Masses Extremities: No Clubbing, No Cyanosis, No Edema, Normal Pulses, No Tenderness/S welling Skin: No Rashes, No Breakdown, No Significant Lesion Neuro: Normal Gait, Normal Speech, Strength at 5/5 X4 Ext, Normal Tone, Sensation Intact Psych/Mental Status: Mental Status NL, Mood NL Results Lab Laboratory Tests 08/14/19 03:34 A/P-Cardiology Admission Diagnosis TIA Paroxysmal atrial fibrillation Hypertension Hypothyroidism Assessment/Plan TIA, full recovery, maintained on Pradaxa as an outpatient, added aspirin 81 mg, continue to monitor Generalized weakness, may benefit from physical therapy. Paroxysmal atrial fibrillation, currently in atrial fibrillation with controlled rate. Ejection fraction 60 percent, left atrial dilatation, has been followed by Dr. Ruano Hypertension, monitor blood pressure Hyperlipidemia, LDL 111, started on Lipitor 20 mg daily, continue to monitor History of thyroidectomy in September 2016 secondary to thyroid cancer, received radioactive iodine ablation in November 2016, maintained on levothyroxin, monitored by primary care physician Chronic kidney disease, history of renal failure, renal function are better at this time. Obesity, BMI 42. Clinical Quality Measures DVT/VTE Risk/Contraindication: Risk Factor Score Per Nursin RFS Level Per Nursing on Admit: 4+=Very High Stroke: Date of last known well: Aug 12, 2019 HASMUKH FUNES MD Aug 14, 2019 08:59
--- NOTE | 2019-08-14 09:35 | Progress Note - Hospitalist ---
Subjective HPI/CC On Admission Date Seen by Provider: Aug 14, 2019 Time Seen by Provider: 09:32 Pt is a 59yoCF with a PMH of HTN and a-fib who presented to the ER due to falls and slurred speech. She states that her symptoms gradually worsened throughout the past week and she fell yesterday twice. She denied hitting her head or any injuries. She reports compliance with her anticoagulation. She complains of slurred speech but she is not apparently slurring and when asked to clarify she states that she can't find her words like normal. Subjective/Events-last exam Speech much improved. Still complains of weakness. Does not have transportation back to facility today. Objective Exam Vital Signs Vital Signs Date Time Temp Pulse Resp B/P (MAP) Pulse Ox O2 Delivery O2 Flow Rate FiO2 08/14/19 07:00 75 08/14/19 04:00 19 161/104 (123) 96 Room Air 08/14/19 03:11 36.8 Capillary Refill : Less Than 3 Seconds General Appearance: No Apparent Distress, WD/WN, Obese Respiratory: Lungs Clear, No Respiratory Distress Cardiovascular: No Murmur, Irregularly Irregular Neurologic/Psychiatric: Alert, Oriented x3; No Aphasia, No Facial Droop Results/Procedures Lab Laboratory Tests 08/14/19 03:34 Patient resulted labs reviewed. Imaging: Reviewed Imaging Report Assessment/Plan Assessment and Plan Assess & Plan/Chief Complaint Expressive Aphasia- resolved CT Head negative TIA vs CVA, though could be related to UTI Will get MRI given duration of symptoms >24 hours though could be related to UTI PT/OT/PEDIATRIC INTENSIVE PHYSICIAN ASA, Statin pA-Fib Cardiology consulted, appreciate recs echo shows preserved EF, PA pressure 60 in a-fib but rate controlled telemetry UTI Continue Rocephin Await cultures Hypothyroidism synthroid Clinical Quality Measures DVT/VTE Risk/Contraindication: Risk Factor Score Per Nursin RFS Level Per Nursing on Admit: 4+=Very High Stroke: Date of last known well: Aug 12, 2019 DAKOTA WILHELM MD Aug 14, 2019 09:35
[2019-08-15 00:49] VITALS: BP 165/88
[2019-08-15 03:56] LABS: BASOPHILS % (AUTO) 0 % (0-10); EOSINOPHILS # (AUTO) 0.1 10^3/uL (0.0-0.3); EOSINOPHILS % (AUTO) 2 % (0-10); HEMATOCRIT 35 % (35-52); LYMPHOCYTES # (AUTO) 1.2 X 10^3 (1.0-4.0); LYMPHOCYTES % (AUTO) 20 % (12-44); MEAN CORPUSCULAR HEMOGLOBIN 29 PG (25-34); MEAN CORPUSCULAR HGB CONC 32 G/DL (32-36); MEAN CORPUSCULAR VOLUME 90 FL (80-99); MEAN PLATELET VOLUME 10.7 FL (7.4-10.4); MONOCYTES # (AUTO) 0.5 X 10^3 (0.0-1.0); MONOCYTES % (AUTO) 8 % (0-12); NEUTROPHILS # (AUTO) 4.3 X 10^3 (1.8-7.8); NEUTROPHILS % (AUTO) 70 % (42-75); PLATELET COUNT 143 10^3/uL (130-400); RED CELL DISTRIBUTION WIDTH 15.1 % (10.0-14.5); WHITE BLOOD COUNT 6.1 10^3/uL (4.3-11.0)
[2019-08-15 04:16] LABS: ALBUMIN 3.3 GM/DL (3.2-4.5); BILIRUBIN,TOTAL 0.8 MG/DL (0.1-1.0); CALCIUM 8.7 MG/DL (8.5-10.1); CREATININE SERUM 1.16 MG/DL (0.60-1.30); POTASSIUM 4.2 MMOL/L (3.6-5.0); TOTAL PROTEIN 5.5 GM/DL (6.4-8.2)
[2019-08-15 04:31] VITALS: BP 167/109
[2019-08-15] MEDS: LEVOTHYROXINE 150 MCG (LEVOTHROID) TAB PO SCH (05:51)
--- NOTE | 2019-08-15 08:31 | Speech Therapy Progress Note ---
Therapy Progress Note ST received orders to complete speech evaluation for patient due to initial symptoms of slurred speech. Patient was screened and all symptoms have resolved. Patient does not require skilled ST services at this time. ST will follow up as needed in the event that residual symptoms reappear. MARIA ANTONIA REYES Aug 15, 2019 08:31
--- NOTE | 2019-08-15 09:09 | Physical Therapy Evaluation ---
PT Evaluation-General Medical Diagnosis Admission Date Aug 13, 2019 at 14:48 Medical Diagnosis: TIA Symptoms Onset Date: Aug 12, 2019 Therapy Diagnosis Therapy Diagnosis: Deconditoning Height/Weight Height (Feet): 5 Height (Inches): 4.00 Weight (Pounds): 242 Weight (Ounces): 0.0 Precautions Precautions/Isolations: Fall Prevention, Standard Precautions Weight Bear Status Right Lower Extremity: Right Weight Bearing/Tolerated Left Lower Extremity: Left Weight Bearing/Tolerated Referral Physician: Willie Reason for Referral: Evaluation/Treatment Medical History Pertinent Medical History: Atrial Fib, GERD, HTN Additional Medical History Tyroid cancer, depression. Current History Patient presented to ER via EMS with stroke symptoms: generalized left sided weakness, slurred speech, lethargy and patient fell twice on 08/12. Reviewed History: Yes Social History Home: Assisted Living Prior Prior Level of Function SCALE: Activities may be completed with or without assistive devices. 0-Oirbivbcun-umajxkr completes the activity by him/herself with no assistance from a helper. 5-Set-up or Clean-up Assistance-helper sets up or cleans up; patient completes activity. [place] assists only prior to or following the activity. 4-Supervision or Touching Assistance-helper provides verbal cues and/or touching/steadying and/or contact guard assistance as patient completes ac tivity. Assistance may be provided throughout the activity or intermittently. 3-Partial/Moderate Assistance-helper does LESS THAN HALF the effort. [place] lifts, holds or supports trunk or limbs, but provides less than half the effort. 2-Substantial/Maximal Assistance-helper does MORE THAN HALF the effort. [place] lifts or holds trunk or limbs and provides more than half the effort. 8-Nssnxogel-qcsuhs does ALL the effort. Patient does none of the effort to complete the activity. Or, the assistance of 2 or more helpers is required for the patient to complete the activity. If activity was not attempted, code reason: 7-Patient Refused. 9-Not Applicable-not attempted and the patient did not perform the activity before the current illness, exacerbation or injury. 10-Not Attempted due to Environmental Limitations-(lack of equipment, weather restraints, etc.). 88-Not Attempted due to Medical Conditions or Safety Concerns. Bed Mobility: 6 Transfers (B,C,W/C): 6 Gait: 6 Prior Devices Use: None PT Evaluation-Current Subjective Patient agreeable to therapy at this time and reports no pain. Objective Patient Orientation: Person, Place, Time, Situation ROM/Strength ROM Lower Extremities BLE WFL Strength Lower Extremities BLE 4/5 Sensory Vision: Wears Glasses Hearing: Functional Sensation Right Lower Extremit: Intact Sensation Left Lower Extremity: Intact Transfers Roll Left to Right (QC): 6 Sit to Lying (QC): 6 Lying to Sitting/Side of Bed(Q: 6 Sit to Stand (QC): 4 Chair/Dqg-cj-Bpepf Xfer(QC): 4 Gait Does the Patient Walk?: Yes Mode of Locomotion: Walk Anticipated Mode of Locomotion: Walk Walk 10 feet (QC): 4 Walk 50 ft with 2 Turns(QC): 4 Walk 150 ft (QC): 4 Distance: 150' Gait Assistive Device: FWW Comments/Gait Description CGA for safety. Patient was steady during ambulation but stated she felt slightly lightheaded once up. Wheelchair Training Does the Pt Use a Wheelchair?: No Balance Sitting Static: Good Sitting Dynamic: Good Standing Static: Good Standing Dynamic: Good Assessment/Needs Patient was steady during ambulation using a FWW. Patient did not previously use a walker but stated she was feeling unsteady at this time so a walker was used. Rehab Potential: Good PT Machine Assembler For Puller Over Goals Machine Assembler For Puller Over Goals PT Senior Care Goals Time Frame: Aug 22, 2019 Roll Left & Right (QC): 6 Sit to Lying (QC): 6 Lying-Sitting on Side/Bed(QC): 6 Sit to Stand (QC): 6 Chair/Oro-vd-Awvdo Xfer(QC): 6 Does the Patient Walk: Yes Walk 10 feet (QC): 6 Walk 50ft with 2 Turns (QC): 6 Walk 150 ft (QC): 6 PT Plan Problem List Problem List: Activity Tolerance, Gait Treatment/Plan Treatment Plan: Continue Plan of Care Treatment Plan: Education, Functional Activity Charu, Functional Strength, Gait, Safety, Therapeutic Exercise, Transfers Treatment Duration: Aug 22, 2019 Frequency: 6 times per week Estimated Hrs Per Day: .25 hour per day Patient and/or Family Agrees t: Yes Safety Risks/Education Patient Education: Gait Training, Transfer Techniques Teaching Recipient: Patient Teaching Methods: Discussion Response to Teaching: Reinforcement Needed Discharge Recommendations Therapy Discharge Recommendati: Assisted Living Time/GCodes Time In: 830 Time Out: 845 Total Billed Treatment Time: 15 Total Billed Treatment 1 visit EVL 15 JD MCGRATH PT Aug 15, 2019 09:09
[2019-08-15] MEDS: cefTRIAXone FOR IV USE 1,000 MG in WATER (STERILE) FOR INJECTION 10 ML IV SCH (09:22)
[2019-08-15] MEDS: lisINopril 20 MG (PRINIVIL) TABLET PO SCH (09:22)
[2019-08-15] MEDS: ASPIRIN E.C. 81 MG (ECOTRIN) TAB PO SCH (09:23)
[2019-08-15] MEDS: DABIGATRAN 150 MG (PRADAXA) CAPSULE PO SCH (09:23)
[2019-08-15] MEDS: meTOprolol TARTRATE 50 MG (LOPRESSOR) TAB PO SCH (09:23)
--- NOTE | 2019-08-15 10:16 | Progress Note - Cardiology ---
Cardiology SOAP Progress Note Subjective: Sitting up in a chair at the bedside. States she is feeling much better this morning. C/O gen weakness. No c/o CP, palpitations, syncope, near syncope or dyspnea. Objective: I&O/Vital Signs 08/16/19 00:00 Intake Total 525 ml Balance 525 ml Weight (Pounds): 242 Weight (Ounces): 0.0 Weight (Calculated Kilograms): 109.968752 Constitutional: AAO x 3, well-developed, well-nourished Respiratory: No accessory muscle use, No respiratory distress; chest expansion is symmetric, chest is bilaterally symmetric, lungs clear to auscultation Cardiovascular: irregularly irregular; No JVD; S1 and S2 Gastrointestional: No tender; soft, round, audible bowel sounds Extremities: no lower extremity edema bilateral Neurologic/Psychiatric: other (moves all extremities equally; L hand cook fruit 4/5) Skin: No rash on exposed areas, No ulcerations on exposed areas Results/Procedures: Labs Microbiology 08/12/19 Influenza Types A,B Antigen (CASSIDY) - Final, Complete 08/12/19 Urine Culture - Final, Complete 3 or more isolates Procedures NAME: LESIA SABA [facility] REC#: [id number] PT STATUS: REG ER : 1960 PHYSICIAN: ANGELITO LOPEZ APRN ADMIT DATE: 08/12/19/ER Signed Date of Exam:08/12/19 CT HEAD WO-R/O STROKE PROCEDURE: CT head wo r/o stroke. TECHNIQUE: Multiple contiguous axial images were obtained through the brain without the use of intravenous contrast. Auto Exposure Controls were utilized during the CT exam to meet ALARA standards for radiation dose reduction. INDICATION: Stroke COMPARISON: None available FINDINGS: No intracranial hemorrhage. No intracranial mass, mass effect, midline shift, herniation, hydrocephalus, or extra-axial fluid collection. Periventricular and subcortical white matter hypodensities are present, greatest within the right parietal lobe. Though nonspecific, these most likely relate to moderate background chronic small vessel white matter ischemic disease. No CT evidence of an acute ischemic infarction. The orbits are unremarkable. The paranasal sinuses are clear. The calvarium and extracalvarial soft tissues are unremarkable. IMPRESSION: Nonspecific periventricular and subcortical white matter hypodensities, favored to relate to underlying moderate background chronic small vessel white matter ischemic disease. If there is clinical concern for underlying recent infarction, further evaluation with MRI of the brain could be obtained. Dictated by: Dictated on workstation # [id number] Dict: 08/12/192021 Trans: 08/12/192031 OFELIA [id number] Interpreted by: ISABEL RODRIGUEZ MD Electronically signed by: ISABEL RODRIGUEZ MD 08/12/192031 A/P: Assessment: TIA vs CVA - management per stroke team UTI - management per medical services OAC with Pradaxa (denies missing any doses) HTN Palpitations likely due to sinus node dysfunction. Holter of early October 2017 showed multiple episodes of PAF and wide-complex tachycardia (probable A Fib with very rapid rates and rate-related bundle branch block, but VT and/or torsades cannot be excluded). ECG on 10/20/17: Sinus nacho. 24 Hour Holter of November 2017 showed SB with average HR of 49. Brief episodes of a-fib with max HR around 100 bpm. No VT. One 3 beat run of wide beats, irreg and rate less than 100 bpm Repeat Holter of May 2018 showed NSR with PACs and PVCs (PVC burden less than 1%), no VT or SVT, and no pause greater than 3 sec S/P cardioversion on 02-11-[address] Cheatham - currently in a-fib with controlled rate Card cath on 10/23/17: no CAD, LVEF 60-65%, elevated LVEDP Echocardiogram of July [address] Samuel: showed LVEF 55-65%. Dilated LA. Mod TR. PASP 60-65mmHg Pulmonary hypertension likely secondary to sleep apnea Fam h/o early CAD (both parents) Obesity with BMI approx 43 S/P total thyroidectomy in September 2016 d/t thyroid cancer; s/p radioactive iodine ablation in Mid-November 2016 - thyroid replacement - followed by . TSH normal on 10/05/17 (1.72) Suspected sleep apnea for which she has not followed through on sleep studies Impaired fasting glucose vs borderline DM II CKD 3 Plan: Management of CVA/TIA is per stroke management team - MRI this morning Continue current medication regimen Continue OAC Monitor lab Replace electrolytes as indicated Clinical Quality Measures Stroke: Date of last known well: Aug 12, 2019 CATIA AHMADI Aug 15, 2019 10:16
--- NOTE | 2019-08-15 10:56 | Diagnostic Imaging Report ---
PROCEDURE: MR imaging of the brain without contrast. TECHNIQUE: Multiplanar, multisequence MR imaging of the brain was performed without contrast. INDICATION: Strokelike symptoms. FINDINGS: The study is abbreviated. The patient refused to continue the whole study. Diffusion-weighted images demonstrate multiple foci of diffusion restriction in the right frontal and parietal lobes consistent with acute/subacute infarct. Ventricular size is normal. No hydrocephalus is identified. There is significant periventricular and subcortical white matter signal abnormality noted consistent with chronic microvascular ischemia. The normal expected flow-voids are noted within the carotid siphons. There is no midline shift. Cisterns are patent. The visualized paranasal sinuses are clear. IMPRESSION: Moderate sized areas of diffusion restriction in the right frontal and parietal lobe, middle cerebral artery territory consistent with acute/subacute infarcts. Dictated by: Dictated on workstation # [id number]
[2019-08-15] MEDS ORDERED: CLOPIDOGREL 300 MG (PLAVIX) TABLET PO NR (11:42)
--- NOTE | 2019-08-15 11:59 | Occupational Therapy Eval ---
OT Evaluation-General/PLF Medical Diagnosis Admission Date Aug 13, 2019 at 14:48 Medical Diagnosis: TIA Symptoms Onset Date: Aug 12, 2019 Therapy Diagnosis Therapy Diagnosis: Decreased ADL function/ UE functional strength Height/Weight Height (Feet): 5 Height (Inches): 4.00 Weight (Pounds): 242 Weight (Ounces): 0.0 Precautions Precautions/Isolations: Fall Prevention, Standard Precautions Safety Interventions: Reorient-PRN Weight Bear Status Weight Bearing Restriction: Weight Bearing/Tolerated Referral Physician: Willie Referral Reason: Activity Tolerance, Self Care, Evaluation/Treatment, Strengthening/ROM Medical History Pertinent Medical History: Atrial Fib, GERD, HTN Social History Home: Assisted Living Current Living Status: Alone Entry Into Home: Level Entry ADL-Prior Level of Function SCALE: Activities may be completed with or without assistive devices. 0-Dzqgoqwfvl-bronsye completes the activity by him/herself with no assistance from a helper. 5-Set-up or Clean-up Assistance-helper sets up or cleans up; patient completes activity. Vancleave assists only prior to or following the activity. 4-Supervision or Touching Assistance-helper provides verbal cues and/or touching/steadying and/or contact guard assistance as patient completes activity. Assistance may be provided throughout the activity or intermittently. 3-Partial/Moderate Assistance-helper does LESS THAN HALF the effort. Vancleave lifts, holds or supports trunk or limbs, but provides less than half the effort. 2-Substantial/Maximal Assistance-helper does MORE THAN HALF the effort. [place]ancleave lifts or holds trunk or limbs and provides more than half the effort. 9-Aestuhlbg-gditxn does ALL the effort. Patient does none of the effort to complete the activity. Or, the assistance of 2 or more helpers is required for the patient to complete the activity. If activity was not attempted, code reason: 7-Patient Refused. 9-Not Applicable-not attempted and the patient did not perform the activity before the current illness, exacerbation or injury. 10-Not Attempted due to Environmental Limitations-(lack of equipment, weather restraints, etc.). 88-Not Attempted due to Medical Conditions or Safety Concerns. ADL PLOF Comments Pt states IND without use of AE. Pt does not have walker at apartment. Self Care: Independent Functional Cognition: Independent DME/Equipment: Bath Bench, Grab Bars, Shower, Tall Toilet DME/Equipment Comments As above. Occupation: not employed Drive Self: Yes OT Current Status Subjective Pt seen in recliner chair, agreeable to OT eval/ treat. Pt denies pain, states she had been feeling weak. Mental Status/Objective Patient Orientation: Person, Place, Situation (states she does not remember parts of day of admission.) Attachments: Telemetry Current Glasses/Contacts: Yes Hearing Aids: No Dentures/Partials: No Hand Dominance: Right Upper Extremity ROM WFL BUE Upper Extremity Coordination WFL BUE, completes finger opposition and finger to nose with ease. Upper Extremity Sensation WFL, no c/o paresthesias. Upper Extremity Strength R WFL L WFL but significantly less strength than R. Edema: BLE- states typical, "sometimes swollen, sometimes not." ADL-Treatment Eating (QC): 6 Oral Hygiene (QC): 7 Shower/Bathe Self (QC): 7 Upper Body Dressing (QC): 6 Lower Body Dressing (QC): 7 On/Off Footwear (QC): 6 (completes in recliner chair.) Toileting Hygiene (QC): 6 (utilizes commode- hygiene with IND.) Other Treatments Pt seen upright in recliner chair, agreeable to eval. Pt educated on OT role. Pt oriented, states confusion through part of day of admission. Pt states day of admission she had 2 falls, was drooling/ weak. Pt completes UE movement WFL, strength does not limit function. Pt completes sock doffing in chair, sit to stand, walks to commode with CGA/ utilizes walker handle for stabilization, utilizes toilet and walks back to chair with hand on walker. Pt states no walker at home. Pt completes balance activity, bends at hips and touches mid-gongora with SBA with success. Denies dizziness. Completes eye tracking in all planes within functional/ normal limits. Pt denies need for assist with ADLs, but lives in [place] and states she can always receive assist if needed. Pt educated on safety in home and stroke symptoms. Pt acknowledges, denies further needs, call light in reach. Education OT Patient Education: Purpose of tx/functional activities, Safety issues, Use of adapted equipment Teaching Recipient: Patient Teaching Methods: Demonstration, Discussion Response to Teaching: Verbalize Understanding, Return Demonstration OT [facility] Goals [employer] Goals 1=Demonstrate adherence to instructed precautions during ADL tasks. 2=Patient will verbalize/demonstrate understanding of assistive masood neto/modifications for ADL. 3=Patient will improve strength/tolerance for activity to enable patient to perform ADL's. OT Education/Plan Problem List/Assessment Assessment: No Skilled OT Needs ID'd, Edema, Impaired Funct Balance Discharge Recommendations Plan/Recommendations: Continue POC Therapy Discharge Recommendati: Intermittent Supervision, Assisted Living Equpiment Recommendations-D/C: Other, See Comments (walker) Treatment Plan/Plan of Care Treatment,Training & Education: Yes Plan of Care: OTHER (eval only) Treatment Duration: Aug 15, 2019 Frequency: 1 time per week (eval only) Time/GCodes Start Time: 11:30 Stop Time: 11:44 Total Time Billed (hr/min): 14 Billed Treatment Time 1, EVL (14) EMILY SZYMANSKI OTR Aug 15, 2019 11:59
[2019-08-15 12:00] VITALS: BP 159/106
[2019-08-15 12:31] VITALS: BP 159/106
--- NOTE | 2019-08-15 12:48 | Progress Note - Cardiology ---
Cardiology SOAP Progress Note Subjective: Doesn't report focal weakness Notes gen weakness and malaise No cp or palp Chronic exertional shortness of breath is present No N/V/D Denies palp Objective: I&O/Vital Signs 08/15/19 08/15/19 08/15/19 08/15/19 00:49 01:00 04:00 04:31 Temp 37.1 Pulse 71 71 62 Resp 18 20 B/P (MAP) 165/88 (113) 167/109 (128) Pulse Ox 97 96 O2 Delivery Room Air Room Air Room Air 08/15/19 08/15/19 08/15/19 08/15/19 07:00 08:00 08:00 09:00 Pulse 75 79 Resp 17 B/P (MAP) Pulse Ox 98 O2 Delivery Room Air Room Air Room Air 08/15/19 08/15/19 12:00 12:31 Temp 36.6 Pulse 79 75 Resp 17 22 B/P (MAP) 159/106 (123) 159/106 (123) Pulse Ox 96 O2 Delivery Room Air Room Air 08/15/19 00:00 Intake Total 700 ml Output Total 550 ml Balance 150 ml Weight (Pounds): 242 Weight (Ounces): 0.0 Weight (Calculated Kilograms): 109.052538 Constitutional: AAO x 3, well-developed, well-nourished Respiratory: No accessory muscle use, No respiratory distress; chest expansion is symmetric, chest is bilaterally symmetric, lungs clear to auscultation Cardiovascular: irregularly irregular; No JVD; S1 and S2 Gastrointestional: No tender; soft, round, audible bowel sounds Extremities: no lower extremity edema bilateral Neurologic/Psychiatric: other (moves all extremities equally; L hand scouts 4/5) Skin: No rash on exposed areas, No ulcerations on exposed areas Results/Procedures: Labs Laboratory Tests 08/15/19 03:42: White Blood Count 6.1, Red Blood Count 3.85L, Hemoglobin 11.0L, Hematocrit 35, Mean Corpuscular Volume 90, Mean Corpuscular Hemoglobin 29, Mean Corpuscular Hemoglobin Concent 32, Red Cell Distribution Width 15.1H, Platelet Count 143, Mean Platelet Volume 10.7H, Neutrophils (%) (Auto) 70, Lymphocytes (%) (Auto) 20, Monocytes (%) (Auto) 8, Eosinophils (%) (Auto) 2, Basophils (%) (Auto) 0, Neutrophils # (Auto) 4.3, Lymphocytes # (Auto) 1.2, Monocytes # (Auto) 0.5, Eosinophils # (Auto) 0.1, Basophils # (Auto) 0.0, Sodium Level 140, Potassium Level 4.2, Chloride Level 108H, Carbon Dioxide Level 24, Anion Gap 8, Blood Urea Nitrogen 21H, Creatinine 1.16, Estimat Glomerular Filtration Rate 48, BUN/Creatinine Ratio 18, Glucose Level 89, Calcium Level 8.7, Corrected Calcium 9.3, Total Bilirubin 0.8, Aspartate Amino Transf (AST/SGOT) 12, Alanine Aminotransferase (ALT/SGPT) 14, Alkaline Phosphatase 71, Total Protein 5.5L, Al bumin 3.3 Microbiology 08/12/19 Influenza Types A,B Antigen (CASSIDY) - Final, Complete 08/12/19 Urine Culture - Final, Complete 3 or more isolates Laboratory Tests 08/14/19 03:34 08/15/19 03:42 A/P: Assessment: TIA vs CVA - management per stroke team UTI - management per medical services OAC with Pradaxa (denies missing any doses) HTN Palpitations likely due to sinus node dysfunction. Holter of early October 2017 showed multiple episodes of PAF and wide-complex tachycardia (probable A Fib with very rapid rates and rate-related bundle branch block, but VT and/or torsades cannot be excluded). ECG on 10/20/17: Sinus nacho. 24 Hour Holter of November 2017 showed SB with average HR of 49. Brief episodes of a-fib with max HR around 100 bpm. No VT. One 3 beat run of wide beats, irreg and rate less than 100 bpm Repeat Holter of May 2018 showed NSR with PACs and PVCs (PVC burden less than 1%), no VT or SVT, and no pause greater than 3 sec S/P cardioversion on 02-11-[address] Cheatham - currently in a-fib with controlled rate Card cath on 10/23/17: no CAD, LVEF 60-65%, elevated LVEDP Echocardiogram of July [address] Samuel: showed LVEF 55-65%. Dilated LA. Mod TR. PASP 60-65mmHg Pulmonary hypertension likely secondary to sleep apnea Fam h/o early CAD (both parents) Obesity with BMI approx 43 S/P total thyroidectomy in September 2016 d/t thyroid cancer; s/p radioactive iodine ablation in Mid-November 2016 - thyroid replacement - followed by . TSH normal on 10/05/17 (1.72) Suspected sleep apnea for which she has not followed through on sleep studies Impaired fasting glucose vs borderline DM II CKD 3 Plan: Management of CVA/TIA is per stroke management team - MRI this morning Continue current medication regimen Continue OAC Monitor lab Replace electrolytes as indicated I had a detailed discussion with her regarding her CV issues and answered CV- related questions Clinical Quality Measures Stroke: Date of last known well: Aug 12, 2019 LC PATTON MD FACP FAC CCDS Aug 15, 2019 12:48
--- NOTE | 2019-08-15 13:15 | NUR ---
IRF Evaluation Order received to evaluate patient for the ARU. Chart review complete and it appears patient is ambulating (150ft, FWW) and transferring with CGA, and completing bed mobility and ADLs with independence; therefore, patient does not require intensive therapies. Dr. Real notified of denial. Thank you for this referral.
--- NOTE | 2019-08-15 15:49 | NUR ---
CM/SS visited with the patient per request to help set up transportation. The patient states that she does not have any family other than her sister who also just had a stroke as well. The patient also states she does not have any other friends of neighbors that she can call. She did state that she financially can afford a taxi ride without it depleting her funds or putting a burden on her.CM/SS will help patient set up transportation. The patient does not have a pharmacy set up in [place] at this time but is planning to get an appointment made at [facility] to get established. Dr. Real was working with pharmacy to get medications sent somewhere here in [place]. No other needs at this time. Addendum: 08/15/19 at 1630 by [facility] CM/SS found a pair of sweatpants that the patient could use. The patient stated the facility name is [facility] and that she has her building harvey, and the worker is already gone since she leaves at 3. Patient verbalized that she did not have any other needs at time of discharge.
[2019-08-15] MEDS ORDERED: TRIA1TAB3 PO (15:59)
[2019-08-15 16:00] VITALS: BP 155/130
--- NOTE | 2019-08-15 16:00 | NUR ---
DR ANTON INFORMED PT'S BP IS 155/130. OK TO PROCEED W/ DC PER
[2019-08-15] MEDS ORDERED: ATOR80TA76 PO (16:02)
[2019-08-15] MEDS ORDERED: CLOP75TA28 PO (16:02)
--- NOTE | 2019-08-15 16:06 | NUR ---
PATIENT HAD SOME OF HER MEDICATIONS BOTTLES WITH HER. I CALLED [facility] IN [place] TO VERIFY LAST FILL DATES. SHE STATES SHE DOES NOT HAVE INSURANCE AND SO SHE CAN'T AFFORD TO HAVE HER MEDICATION FILLED ALL THE TIME. THE BOTTLES SHE HAS ARE MOSTLY FROM FEBRUARY HOWEVER THEY HAVE SEVERAL PILLS IN THEM. SHE STATES SHE TRIED TO SPREAD THEM OUT. SHE GETS SAMPLES OF PRADAXA AND DOES HAVE SOME OF THE 150MG TABS IN HER BAG, SHE STATES SHE TAKES THIS BID AND DOES NOT MISS IT. [facility] FILLED: 08-08-19 DILTIAZEM ER 240MG DAILY 08-08-19 LEVOTHYROXINE 300MCG DAILY 03-08-19 LISINOPRIL 20MG DAILY #30 03-07-19 FLECAINIDE 100MG BID #60 03-07-19 TRIAMTERENE HCTZ 37.5-25MG Q48H #15 03-07-19 METOPROLOL ER 200MG BID #60 03-07-19 OMEPRAZOLE 40MG DAILY #30 03-07-19 DILTIAZEM ER 180MG #30 (CHANGED TO 240MG) 03-07-19 DOXAZOSIN 2MG BID #60 08-26-18 TRAZODONE 100MG #30 SEPTEMBER- PRADAXA 150MG BID (ON HOLD, NOT PICKED UP) SHE STATES SHE DOES NOT TAKE ANYTHING OTC. PATIENT HAS BEEN USING [facility] IN [place] BUT DUE TO BEING DISCHARGED AND GOING HOME TO [place] WE ARE SENDING SCRIPTS TO [facility] [address]. DISCHARGE PLANNING WAS FOR HER TO BE SENT HOME WITH PLAVIX AND LIPITOR. [facility] SAYS THE BEGUM FOR #30 CLOPIDOGREL 75MG IS $15.00 AND FOR #30 ATORVASTATIN 80MG IS $30.00. I GAVE THEM HER ADDRESS AND BIRTHDAY TO CREATE A PROFILE FOR HER SO THE PRESCRIPTIONS FILLING WILL GO FASTER, THEY STATE THEY WILL PUT IN A GOOD RX DISCOUNT CARD THAT MAY SAVE HER A LITTLE MORE MONEY WELL.
--- NOTE | 2019-08-15 16:11 | Discharge Summary ---
Discharge Summary Hospital Course Was the Problem List Reviewed?: Yes Hospital Course Date of Admission: Aug 13, 2019 at 14:48 Admission Diagnosis : Expressive aphasia Family Physician/Provider: No,Local Physician Date of Discharge: 08/15/19 Discharge Diagnosis: Acute ischemic stroke Hospital Course: Jessica Alvarado is a 59-year-old female with past medical history of hypertension, hyperlipidemia, atrial fibrillation, who presented with expressive aphasia and was diagnosed with acute ischemic stroke. Her aphasia improved. She did not have any focal weakness. She worked with physical and occupational therapy. She was evaluated by acute rehabilitation but due to her excellent functional status issue is that a candidate. She was started on Plavix and Lipitor. She should continue her Pradaxa. She should establish with [facility] in [place]. She needs a carotid ultrasound as an outpatient. Labs and Pending Lab Test: Laboratory Tests 08/15/19 03:42: White Blood Count 6.1, Red Blood Count 3.85L, Hemoglobin 11.0L, Hematocrit 35, Mean Corpuscular Volume 90, Mean Corpuscular Hemoglobin 29, Mean Corpuscular Hemoglobin Concent 32, Red Cell Distribution Width 15.1H, Platelet Count 143, Mean Platelet Volume 10.7H, Neutrophils (%) (Auto) 70, Lymphocytes (%) (Auto) 20, Monocytes (%) (Auto) 8, Eosinophils (%) (Auto) 2, Basophils (%) (Auto) 0, Neutrophils # (Auto) 4.3, Lymphocytes # (Auto) 1.2, Monocytes # (Auto) 0.5, Eosinophils # (Auto) 0.1, Basophils # (Auto) 0.0, Sodium Level 140, Potassium L evel 4.2, Chloride Level 108H, Carbon Dioxide Level 24, Anion Gap 8, Blood Urea Nitrogen 21H, Creatinine 1.16, Estimat Glomerular Filtration Rate 48, BUN/Creatinine Ratio 18, Glucose Level 89, Calcium Level 8.7, Corrected Calcium 9.3, Total Bilirubin 0.8, Aspartate Amino Transf (AST/SGOT) 12, Alanine Aminotransferase (ALT/SGPT) 14, Alkaline Phosphatase 71, Total Protein 5.5L, Albumin 3.3 Microbiology 08/12/19 Influenza Types A,B Antigen (CASSIDY) - Final, Complete 08/12/19 Urine Culture - Final, Complete 3 or more isolates Home Meds Active Atorvastatin Calcium 80 Mg Tablet 80 Mg PO HS 30 Days Clopidogrel (Clopidogrel Bisulfate) 75 Mg Tablet 75 Mg PO DAILY 30 Days Reported Triamterene-Hctz 37.5-25 mg Tb (Triamterene/Hydrochlorothiazid) 1 Each Tablet 1 Tab PO Q48H LAST FILLED #15 03-07-19 Doxazosin Mesylate 2 Mg Tablet 2 Mg PO BID LAST FILLED #60 03-07-19 Metoprolol Succinate 200 Mg Tab.er.24h 200 Mg PO BID LAST FILLED #60 03-07-19 Flecainide Acetate 100 Mg Tablet 100 Mg PO BID LAST FILLED #60 03-07-19 Omeprazole 40 Mg Capsule.dr 40 Mg PO DAILY LAST FILLED #30 03-07-19 Pradaxa (Dabigatran Etexilate Mesylate) 150 Mg Capsule 150 Mg PO BID Trazodone HCl 100 Mg Tablet 100 Mg PO HS PRN LAST FILLED #30 08-26-18 Lisinopril 20 Mg Tablet 20 Mg PO DAILY LAST FILLED #30 03-08-19 Diltiazem 24Hr ER (Diltiazem HCl) 240 Mg Cap.er.24h 240 Mg PO DAILY Levothyroxine Sodium 300 Mcg Tablet 300 Mcg PO DAILY Assessment/Pt Instructions Take medications as prescribed. Establish care with a [facility] primary care physician, [facility] in [place]. Return with worsening aphasia , weakness, or if you feel like you're getting worse. Discharge Planning: <30 minutes discharge planning Discharge Instructions Discharge Diet: No Restrictions Activity as Tolerated: Yes Pneumonia Vaccine Order Indica: Yes Consultations Cardiology Discharge Physical Examination Vital Signs Vital Signs Date Time Temp Pulse Resp B/P (MAP) Pulse Ox O2 Delivery O2 Flow Rate FiO2 08/15/19 15:35 Room Air 08/15/19 12:57 69 08/15/19 12:31 36.6 22 159/106 (123) 96 General Appearance: No Apparent Distress, WD/WN HEENT: PERRL/EOMI, Pharynx Normal Respiratory: Lungs Clear, Normal Breath Sounds, No Respiratory Distress Cardiovascular: Regular Rate, Rhythm, No Edema, No Murmur Gastrointestinal: Normal Bowel Sounds, Non Tender, Soft Extremity: Normal Inspection, Non Tender, No Pedal Edema Skin: Normal Color, Warm/Dry Neurologic/Psychiatric: Alert, Oriented x3, No Motor/Sensory Deficits, Normal Mood/Affect; No Aphasia, No Motor Weakness Allergies: Coded Allergies: No Known Drug Allergies (Unverified , 3/9/17) Discharge Summary Date of Admission Aug 13, 2019 at 14:48 Date of Discharge Discharge Date: Aug 15, 2019 Discharge Time: 16:08 Admission Diagnosis Expressive Aphasia Consults/Procedures Consulations Cardiology Discharge Diagnosis Acute ischemic stroke (1) Acute ischemic stroke Status: Acute Clinical Quality Measures DVT/VTE Risk/Contraindication: Risk Factor Score Per Nursin RFS Level Per Nursing on Admit: 4+=Very High Stroke: Date of last known well: Aug 12, 2019 FAITH ANTON MD Aug 15, 2019 16:08
--- NOTE | 2019-08-15 16:30 | NUR ---
LESIA SABA demonstrates understanding of discharge instructions and accurately returns instructions upon questioning. Copy of Post-Discharge Instructions and Medication Discharge Instructions given to PT. LESIA SABA is able to manage continuing needs after discharge. Patients belongings returned to PT. Skin dry and intact; no breakdown noted. Patient discharged from [facility]- on 08/15/19 at 1630. LESIA SABA left floor via , accompanied by STAFF.
[2019-08-15] MEDS ORDERED: CEFDINIR 300 MG (OMNICEF) CAP PO SCH (21:00)
[2019-08-15] MEDS ORDERED: lisINopril 20 MG (PRINIVIL) TABLET PO SCH (21:00)
[2019-08-15] MEDS ORDERED: meTOprolol SUCCINATE 100 MG (TOPROL XL) TAB PO SCH (21:00)
[2019-08-16] MEDS ORDERED: CLOPIDOGREL 75 MG (PLAVIX) TABLET PO SCH (09:00)
== END 2019-08-15 16:30 | DRG 65 ==
LOC: EDUNIT# 19:48 → ER 19:49 → ICU 22:27 → OBSVTOIN 08-13 14:48
PROVIDERS: ADMIT Family Medicine; ATTEND Family Medicine
DX: I63.9 Cerebral infarction, unspecified (principal); G81.94 Hemiplegia, unspecified affecting left nondominant side; R47.01 Aphasia; R47.81 Slurred speech; R29.703 NIHSS score 3; I48.0 Paroxysmal atrial fibrillation; R53.83 Other fatigue; N39.0 Urinary tract infection, site not specified; Z68.41 Body mass index [BMI] 40.0-44.9, adult; I12.9 Hypertensive chronic kidney disease with stage 1 through stage 4 chronic kidney disease, or unspecified chronic kidney disease; N18.3 Chronic kidney disease, stage 3 (moderate); E66.9 Obesity, unspecified; I27.20 Pulmonary hypertension, unspecified; E89.0 Postprocedural hypothyroidism; K21.9 Gastro-esophageal reflux disease without esophagitis; G47.30 Sleep apnea, unspecified; F32.9 Major depressive disorder, single episode, unspecified; E78.5 Hyperlipidemia, unspecified; I07.1 Rheumatic tricuspid insufficiency; Z91.81 History of falling; Z82.49 Family history of ischemic heart disease and other diseases of the circulatory system; Z79.01 Long term (current) use of anticoagulants; Z85.850 Personal history of malignant neoplasm of thyroid
CPT/HCPCS: 36415; 70450; 70551; 71045; 80053; 80061; 81000; 82962; 83880; 84484; 85007; 85025; 85027; 85379; 85610; 85730; 87088; 87804; 93005; 93041; 93306; G0378

== ENCOUNTER → 2019-09-15 | Outpatient (CLI) | payer OTHER ==
[~2019-09-15] MED LIST changes: +ATOR80TA76 PO; +CLOP75TA28 PO; +DILT240C91 PO; +DOXA2TAB2 PO; +LEVO300T5 PO; +LISI-552 PO; -TRAZ-190 PO; +TRAZ-227 PO; +TRIA1TAB3 PO
[2019-09-15 11:24] LABS: BASOPHILS % (AUTO) 0 % (0-10); EOSINOPHILS # (AUTO) 0.2 10^3/uL (0.0-0.3); EOSINOPHILS % (AUTO) 3 % (0-10); HEMATOCRIT 38 % (35-52); HEMOGLOBIN 11.6 G/DL (11.5-16.0); LYMPHOCYTES # (AUTO) 0.7 X 10^3 (1.0-4.0); LYMPHOCYTES % (AUTO) 13 % (12-44); MEAN CORPUSCULAR HEMOGLOBIN 28 PG (25-34); MEAN CORPUSCULAR HGB CONC 31 G/DL (32-36); MEAN CORPUSCULAR VOLUME 92 FL (80-99); MEAN PLATELET VOLUME 11.1 FL (7.4-10.4); MONOCYTES # (AUTO) 0.4 X 10^3 (0.0-1.0); MONOCYTES % (AUTO) 8 % (0-12); NEUTROPHILS # (AUTO) 4.4 X 10^3 (1.8-7.8); NEUTROPHILS % (AUTO) 77 % (42-75); PLATELET COUNT 154 10^3/uL (130-400); RED CELL DISTRIBUTION WIDTH 14.9 % (10.0-14.5); WHITE BLOOD COUNT 5.8 10^3/uL (4.3-11.0)
[2019-09-15 11:41] LABS: ALBUMIN 3.8 GM/DL (3.2-4.5); BILIRUBIN,TOTAL 0.7 MG/DL (0.1-1.0); CALCIUM 8.8 MG/DL (8.5-10.1); CREATININE SERUM 1.1 MG/DL (0.60-1.30); POTASSIUM 4.3 MMOL/L (3.6-5.0); TOTAL PROTEIN 6.2 GM/DL (6.4-8.2)
== END ==
LOC: ONC 11:00
PROVIDERS: ATTEND Internal Medicine Hematology & Oncology
DX: C73 Malignant neoplasm of thyroid gland (principal); E89.0 Postprocedural hypothyroidism; N18.3 Chronic kidney disease, stage 3 (moderate); Z98.890 Other specified postprocedural states; Z86.79 Personal history of other diseases of the circulatory system; Z79.899 Other long term (current) drug therapy
CPT/HCPCS: 80053; 84432; 84443; 85025; 86800

== ENCOUNTER 2019-12-08 10:29 | Outpatient (RCR) | payer OTHER | END 2019-12-19 | disposition still patient (30) | LOC: ONC 10:29 | PROVIDERS: ATTEND Internal Medicine Hematology & Oncology | DX: C73 Malignant neoplasm of thyroid gland (principal); E89.0 Postprocedural hypothyroidism; N18.3 Chronic kidney disease, stage 3 (moderate); Z98.890 Other specified postprocedural states; Z86.79 Personal history of other diseases of the circulatory system; Z79.899 Other long term (current) drug therapy | CPT/HCPCS: 84443; 99213 ==

== ENCOUNTER → 2019-12-08 | Outpatient (CLI) | payer OTHER ==
[2019-12-08 11:46] LABS: CALCIUM 8.5 MG/DL (8.5-10.1); CREATININE SERUM 1.21 MG/DL (0.60-1.30); MAGNESIUM 1.5 MG/DL (1.6-2.4); POTASSIUM 3.4 MMOL/L (3.6-5.0)
== END ==
LOC: LAB 11:05
PROVIDERS: ATTEND Internal Medicine Cardiovascular Disease
DX: I48.0 Paroxysmal atrial fibrillation (principal)
CPT/HCPCS: 36415; 80048; 83735

== ENCOUNTER → 2020-01-10 | Outpatient (CLI) | payer OTHER ==
[2020-01-10 13:27] LABS: POTASSIUM 4.7 MMOL/L (3.6-5.0)
[2020-01-10 13:28] LABS: CALCIUM 9.4 MG/DL (8.5-10.1)
[2020-01-10 13:32] LABS: CREATININE SERUM 1.3 MG/DL (0.60-1.30)
[2020-01-10 13:35] LABS: MAGNESIUM 1.9 MG/DL (1.6-2.4)
== END ==
LOC: LAB 12:49
PROVIDERS: ATTEND Nurse Practitioner Family
DX: I12.9 Hypertensive chronic kidney disease with stage 1 through stage 4 chronic kidney disease, or unspecified chronic kidney disease (principal); N18.9 Chronic kidney disease, unspecified; I48.91 Unspecified atrial fibrillation; E66.01 Morbid (severe) obesity due to excess calories
CPT/HCPCS: 36415; 80048; 83735

== ENCOUNTER 2020-03-21 14:37 | Outpatient (RCR) | payer OTHER ==
[~2020-03-21 14:37] MED LIST changes: -LISI1TAB25 PO; +LISI1TAB46 PO
[2020-03-21 14:59] LABS: BASOPHILS % (AUTO) 0 % (0-10); EOSINOPHILS # (AUTO) 0.1 10^3/uL (0.0-0.3); EOSINOPHILS % (AUTO) 2 % (0-10); HEMATOCRIT 38 % (35-52); HEMOGLOBIN 12.2 G/DL (11.5-16.0); LYMPHOCYTES # (AUTO) 1.2 X 10^3 (1.0-4.0); LYMPHOCYTES % (AUTO) 18 % (12-44); MEAN CORPUSCULAR HEMOGLOBIN 29 PG (25-34); MEAN CORPUSCULAR HGB CONC 32 G/DL (32-36); MEAN CORPUSCULAR VOLUME 91 FL (80-99); MEAN PLATELET VOLUME 10.2 FL (7.4-10.4); MONOCYTES # (AUTO) 0.5 X 10^3 (0.0-1.0); MONOCYTES % (AUTO) 8 % (0-12); NEUTROPHILS # (AUTO) 4.8 X 10^3 (1.8-7.8); NEUTROPHILS % (AUTO) 73 % (42-75); PLATELET COUNT 185 10^3/uL (130-400); WHITE BLOOD COUNT 6.7 10^3/uL (4.3-11.0)
[2020-03-21 15:18] LABS: BILIRUBIN,TOTAL 0.8 MG/DL (0.1-1.0); CREATININE SERUM 1.25 MG/DL (0.60-1.30); TOTAL PROTEIN 6.8 GM/DL (6.4-8.2)
== END 2020-04-22 | disposition home or self-care (01) ==
LOC: ONC 14:37
PROVIDERS: ATTEND Internal Medicine Hematology & Oncology
DX: C73 Malignant neoplasm of thyroid gland (principal); E89.0 Postprocedural hypothyroidism; I12.9 Hypertensive chronic kidney disease with stage 1 through stage 4 chronic kidney disease, or unspecified chronic kidney disease; N18.2 Chronic kidney disease, stage 2 (mild); E66.01 Morbid (severe) obesity due to excess calories; I48.0 Paroxysmal atrial fibrillation; Z98.890 Other specified postprocedural states; Z86.79 Personal history of other diseases of the circulatory system; Z79.899 Other long term (current) drug therapy
CPT/HCPCS: 80053; 84432; 84443; 85025; 86800; 99213

== ENCOUNTER 2020-09-25 14:46 | Outpatient (RCR) | payer SELFPAY ==
[~2020-09-25 14:46] MED LIST changes: -LISI-552 PO; +LISI20TA26 PO; +SERT-414 PO; -SERT100T8 PO
== END 2020-12-24 | disposition home or self-care (01) ==
LOC: ONC 14:46
PROVIDERS: ATTEND Internal Medicine Hematology & Oncology
DX: C73 Malignant neoplasm of thyroid gland (principal); E89.0 Postprocedural hypothyroidism; I12.9 Hypertensive chronic kidney disease with stage 1 through stage 4 chronic kidney disease, or unspecified chronic kidney disease; N18.30 Chronic kidney disease, stage 3 unspecified; E66.01 Morbid (severe) obesity due to excess calories; I48.0 Paroxysmal atrial fibrillation; Z98.890 Other specified postprocedural states; Z86.79 Personal history of other diseases of the circulatory system; Z79.899 Other long term (current) drug therapy; Z79.01 Long term (current) use of anticoagulants
CPT/HCPCS: 99213

== ENCOUNTER → 2021-03-05 | Outpatient (CLI) | payer SELFPAY ==
[~2021-03-05] MED LIST changes: -OMEP40CA27 PO; +OMEP40CA6 PO
== END ==
LOC: CARD 14:00
PROVIDERS: ATTEND Internal Medicine Cardiovascular Disease
DX: I08.2 Rheumatic disorders of both aortic and tricuspid valves (principal); I27.20 Pulmonary hypertension, unspecified
CPT/HCPCS: 93306

== ENCOUNTER 2021-03-27 13:39 | Outpatient (RCR) | payer OTHER ==
[2021-03-27 14:31] LABS: BASOPHILS % (AUTO) 1 % (0-10); EOSINOPHILS % (AUTO) 0 % (0-10); HEMATOCRIT 40 % (35-52); HEMOGLOBIN 12.7 g/dL (11.5-16.0); LYMPHOCYTES # (AUTO) 0.9 10^3/uL (1.0-4.0); LYMPHOCYTES % (AUTO) 17 % (12-44); MEAN CORPUSCULAR HEMOGLOBIN 30 pg (25-34); MEAN CORPUSCULAR HGB CONC 32 g/dL (32-36); MEAN CORPUSCULAR VOLUME 93 fL (80-99); MEAN PLATELET VOLUME 10.6 fL (9.0-12.2); MONOCYTES # (AUTO) 0.4 10^3/uL (0.0-1.0); MONOCYTES % (AUTO) 8 % (0-12); NEUTROPHILS # (AUTO) 4.3 10^3/uL (1.8-7.8); NEUTROPHILS % (AUTO) 75 % (42-75); PLATELET COUNT 161 10^3/uL (130-400); WHITE BLOOD COUNT 5.7 10^3/uL (4.3-11.0)
[2021-03-27 14:48] LABS: ALBUMIN 3.8 GM/DL (3.2-4.5); BILIRUBIN,TOTAL 0.6 MG/DL (0.1-1.0); CALCIUM 9.4 MG/DL (8.5-10.1); CREATININE SERUM 1.28 MG/DL (0.60-1.30); POTASSIUM 4.3 MMOL/L (3.6-5.0); TOTAL PROTEIN 6.5 GM/DL (6.4-8.2)
[2021-05-26] MEDS ORDERED: ONDA4TAB11 PO (19:52)
== END 2021-06-25 | disposition home or self-care (01) ==
LOC: ONC 13:39
PROVIDERS: ATTEND Internal Medicine Hematology & Oncology
DX: C73 Malignant neoplasm of thyroid gland (principal); E89.0 Postprocedural hypothyroidism; N18.30 Chronic kidney disease, stage 3 unspecified; E66.01 Morbid (severe) obesity due to excess calories; Z98.890 Other specified postprocedural states; Z86.79 Personal history of other diseases of the circulatory system; Z92.21 Personal history of antineoplastic chemotherapy
CPT/HCPCS: 80053; 84432; 84443; 85025; 86800; G0463; 99213

== ENCOUNTER 2021-05-26 18:17 | Emergency (ER) | payer SELFPAY ==
[~2021-05-26] VITALS: Ht 162.5 cm; Wt 108.0 kg
[2021-05-26] MEDS ORDERED: NS IV 1000 ML 1,000 ML IV STA (18:24)
--- NOTE | 2021-05-26 18:24 | ED GI ---
General Stated Complaint: NAUSEA History of Present Illness Date Seen by Provider: May 26, 2021 Time Seen by Provider: 18:21 Initial Comments 61-year-old female presents with some nausea vomiting diarrhea with some lower abdominal cramping. Patient reports that nausea for started around 9 or 10 she has had vomiting diarrhea throughout the day. She reports that she developed some abdominal cramping in the bilateral lower abdomen but does not really describe pain. She denies any fever, chills, cough, sore throat or other sy stemi complaints. She reports that she has no known sick contacts. She has not tried any for it. Patient was brought in by EMS who gave her an oral Zofran and she has not vomited for them. Allergies and Home Medications Allergies Coded Allergies: No Known Drug Allergies (Unverified , 09/18/16) Patient Home Medication List Home Medication List Reviewed: Yes Atorvastatin Calcium (Atorvastatin Calcium) 80 Mg Tablet, 80 MG PO HS Prescribed by: FAITH ANTON on 08/15/19 160 Clopidogrel Bisulfate (Clopidogrel) 75 Mg Tablet, 75 MG PO DAILY Prescribed by: FAITH ANTON on 08/15/19 160 Dabigatran Etexilate Mesylate (Pradaxa) 150 Mg Capsule, 150 MG PO BID, (Reported) Entered as Reported by: JOEY BUI on 08/12/192005 Diltiazem HCl (Diltiazem 24Hr ER) 240 Mg Cap.er.24h, 240 MG PO DAILY, (Reported) Entered as Reported by: JOEY BUI on 08/12/192004 Doxazosin Mesylate (Doxazosin Mesylate) 2 Mg Tablet, 2 MG PO BID, (Reported) Entered as Reported by: JOEY BUI on 08/12/192007 Flecainide Acetate (Flecainide Acetate) 100 Mg Tablet, 100 MG PO BID, (Reported) Entered as Reported by: JOEY BUI on 08/12/192007 Levothyroxine Sodium (Levothyroxine Sodium) 300 Mcg Tablet, 300 MCG PO DAILY, (Reported) Entered as Reported by: JOEY BUI on 08/12/192004 Lisinopril (Lisinopril) 20 Mg Tablet, 20 MG PO DAILY, (Reported) Entered as Reported by: JOEY BUI on 08/12/192004 Metoprolol Succinate (Metoprolol Succinate) 200 Mg Tab.er.24h, 200 MG PO BID, (Reported) Entered as Reported by: JOEY BUI on 08/12/192007 Omeprazole (Omeprazole) 40 Mg Capsule.dr, 40 MG PO DAILY, (Reported) Entered as Reported by: JOEY BUI on 08/12/192007 Trazodone HCl (Trazodone HCl) 100 Mg Tablet, 100 MG PO HS PRN for SLEEP, (Reported) Entered as Reported by: JOEY BUI on 08/12/192005 Triamterene/Hydrochlorothiazid (Triamterene-Hctz 37.5-25 mg Tb) 1 Each Tablet, 1 TAB PO Q48H, (Reported) Entered as Reported by: ZACH HANDY on 08/15/19 6559 Review of Systems Review of Systems Constitutional: No chills, No fever Respiratory: Denies Cough Cardiovascular: Denies Chest Pain Gastrointestinal: See HPI; Denies Abdomen Distended; Diarrhea, Nausea, Vomiting Genitourinary: No Symptoms Reported Musculoskeletal: no symptoms reported Skin: no symptoms reported Psychiatric/Neurological: No Symptoms Reported Endocrine: No Symptoms Reported Hematologic/Lymphatic: No Symptoms Reported Past Wtrjdnt-Mhsjzf-Uyzalh Hx Immunizations Up To Date Tetanus Booster (TDap): Unknown Seasonal Allergies Seasonal Allergies: No Past Medical History Surgeries: Yes Gallbladder, Thyroidectomy, Tonsillectomy Respiratory: Yes Sleep Apnea Cardiac: Yes Atrial Fibrillation, Chronic Edema/Swelling, Hypertension Neurological: No Reproductive Disorders: No Female Reproductive Disorders: Denies 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: Menopausal Sexually Transmitted Disease: No HIV/AIDS: No Genitourinary: Yes UTI-Chronic Gastrointestinal: Yes Gastroesophageal Reflux Musculoskeletal: No Endocrine: No HEENT: No Loss of Vision: Bilateral Hearing Impairment: Denies Cancer: Yes Thyroid Psychosocial: Yes Depression Integumentary: No Blood Disorders: No Adverse Reaction/Blood Tranf: No Family Medical History No Pertinent Family Hx Physical Exam Vital Signs Vital Signs - First Documented 05/26/21 18:17 Temp 36.3 Pulse 104 Resp 16 B/P (MAP) 175/122 (139) Pulse Ox 96 O2 Delivery Room Air Capillary Refill : Height/Weight/BMI Height: 5'4.00" Weight: 242lbs. 0.0oz. [id number]; 42.03 BMI Method:Estimated General Appearance: WD/WN, no apparent distress Respiratory: chest non-tender, lungs clear Cardiovascular: normal peripheral pulses, tachycardia (mild ) Gastrointestinal: non tender, soft; No distended, No guarding, No rebound Extremities: normal range of motion Neurologic/Psychiatric: alert, normal mood/affect, oriented x 3 Skin: normal color, warm/dry Progress/Results/Core Measures Results/Orders Lab Results Laboratory Tests Test 05/26/21 18:23 Range/Units White Blood Count 7.6 4.3-11.0 10^3/uL Red Blood Count 4.43 3.80-5.11 10^6/uL Hemoglobin 13.1 11.5-16.0 g/dL Hematocrit 40 35-52 % Mean Corpuscular Volume 91 80-99 fL Mean Corpuscular Hemoglobin 30 25-34 pg Mean Corpuscular Hemoglobin Concent 33 32-36 g/dL Red Cell Distribution Width 12.5 10.0-14.5 % Platelet Count 171 130-400 10^3/uL Mean Platelet Volume 10.5 9.0-12.2 fL Immature Granulocyte % (Auto) 0 % Neutrophils (%) (Auto) 86 H 42-75 % Lymphocytes (%) (Auto) 7 L 12-44 % Monocytes (%) (Auto) 6 0-12 % Eosinophils (%) (Auto) 0 0-10 % Basophils (%) (Auto) 0 0-10 % Neutrophils # (Auto) 6.6 1.8-7.8 X 10^3 Lymphocytes # (Auto) 0.5 L 1.0-4.0 X 10^3 Monocytes # (Auto) 0.5 0.0-1.0 X 10^3 Eosinophils # (Auto) 0.0 0.0-0.3 10^3/uL Basophils # (Auto) 0.0 0.0-0.1 10^3/uL Immature Granulocyte # (Auto) 0.0 0.0-0.1 10^3/uL Neutrophils % (Manual) 88 % Lymphocytes % (Manual) 9 % Monocytes % (Manual) 2 % Eosinophils % (Manual) 1 % Urine Color RED H Urine Clarity CLOUDY Urine pH 5.0 5-9 Urine Specific [place] >=1.030 1.016-1.022 Urine Protein 2+ H NEGATIVE Urine Glucose (UA) NEGATIVE NEGATIVE Urine Ketones 1+ H NEGATIVE Urine Nitrite POSITIVE H NEGATIVE Urine Bilirubin 2+ H NEGATIVE Urine Urobilinogen 0.2 < = 1.0 MG/DL Urine Leukocyte Esterase NEGATIVE NEGATIVE Urine RBC (Auto) 3+ H NEGATIVE Urine RBC TNTC H /HPF Urine WBC NONE /HPF Urine Crystals NONE /LPF Urine Bacteria NEGATIVE /HPF Urine Casts NONE /LPF Urine Mucus NEGATIVE /LPF Urine Culture Indicated YES Sodium Level 141 135-145 MMOL/L Potassium Level 3.9 3.6-5.0 MMOL/L Chloride Level 106 98-107 MMOL/L Carbon Dioxide Level 24 21-32 MMOL/L Anion Gap 11 5-14 MMOL/L Blood Urea Nitrogen 23 H 7-18 MG/DL Creatinine 1.26 0.60-1.30 MG/DL Estimat Glomerular Filtration Rate 43 BUN/Creatinine Ratio 18 Glucose Level 120 H 70-105 MG/DL Calcium Level 9.4 8.5-10.1 MG/DL Corrected Calcium 9.4 8.5-10.1 MG/DL Total Bilirubin 0.7 0.1-1.0 MG/DL Aspartate Amino Transf (AST/SGOT) 19 5-34 U/L Alanine Aminotransferase (ALT/SGPT) 17 0-55 U/L Alkaline Phosphatase 95 40-136 U/L C-Reactive Protein 1.09 H <0.50 MG/DL Total Protein 7.1 6.4-8.2 GM/DL Albumin 4.0 3.2-4.5 GM/DL Lipase 35 8-78 U/L My Orders Orders - PENA,JUDSON L DO Cbc With Automated Diff (05/26/21 18:24) Comprehensive Metabolic Panel (05/26/21 18:24) Lactic Acid Analyzer (05/26/21 18:24) Lipase (05/26/21 18:24) Ua Culture If Indicated (05/26/21 18:24) Crp Fs (05/26/21 18:24) Ns Iv 1000 Ml (Sodium Chloride 0.9%) (05/26/21 18:24) Manual Differential (05/26/21 18:23) Urine Culture (05/26/21 18:23) Ct Abdomen/Pelvis Wo (05/26/21 19:02) Vital Signs/I&O 05/26/21 18:17 Temp 36.3 Pulse 104 Resp 16 B/P (MAP) 175/122 (139) Pulse Ox 96 O2 Delivery Room Air Progress Progress Note : Progress Note Patient with a very small 1 mm stone likely causing her some discomfort. Patient is otherwise negative abdominal findings, at this time I will have her follow-up with her primary care provider as needed. I will prescribe her some Zofran for the vomiting. Patient is stable and discharged Diagnostic Imaging Diagonstic Imaging: CT Plain Films/CT/US/NM/MRI: abdomen Comments CT ABDOMEN/PELVIS WO CT abdomen/pelvis w/o TECHNIQUE: Unenhanced CT imaging of the abdomen and pelvis was performed. 2D reformats are created and submitted for interpretation. Automatic exposure controls were utilized to optimize patient dose. INDICATION: Hematuria with nausea and vomiting. COMPARISON: None available. FINDINGS: Evaluation of the abdominal viscera is mildly limited without contrast. Lower chest: The lung bases are clear. No pericardial or pleural effusion. Peritoneum: No free intraperitoneal air or fluid. Liver and biliary system: No concerning focal hepatic lesion. Cholecystectomy. Spleen and Pancreas: Spleen is normal. Unenhanced pancreas is grossly normal. Adrenals: Normal. tract: Mild right hydronephrosis is present. Induration on the right ureter is likely due to a partially obstructing 1 mm punctate stone in the distal ureter at the pelvic inlet. A nonobstructing 2 mm stone is present in lower pole of the right kidney. No left renal or ureteral stone. GI tract: Stomach is decompressed. No bowel obstruction. No pericolonic inflammatory changes. Normal appendix. Vasculature and Lymph nodes: Normal caliber aorta. No abdominal or pelvic lymphadenopathy. Musculoskeletal: No concerning osseous lesion. IMPRESSION: Mild right hydronephrosis due to a 1 mm partially obstructing stone in the distal right ureter. Departure Impression Primary Impression: Calculus, ureter Disposition: HOME, SELF-CARE Condition: Stable Departure-Patient Inst. Referrals: NO,LOCAL PHYSICIAN (PCP/Family) Primary Care Physician Patient Instructions: Renal Colic (DC), Kidney Stones (DC) Add. Discharge Instructions: Drink plenty of fluids Tylenol or ibuprofen as needed for discomfort Follow-up with your primary care provider if you are not better in the next 4 or 5 days Scripts Ondansetron (Ondansetron Odt) 4 Mg Tab.rapdis 4 MG PO Q6H PRN for NAUSEA/VOMITING, #20 TAB 0 Refills Prov: CHEPE PENAR L DO 05/26/21 CHEPE PENAR Obdulia DO May 26, 2021 18:24
[2021-05-26 18:35] LABS: HEMATOCRIT 40 % (35-52); HEMOGLOBIN 13.1 g/dL (11.5-16.0); MEAN CORPUSCULAR HEMOGLOBIN 30 pg (25-34); MEAN CORPUSCULAR HGB CONC 33 g/dL (32-36); MEAN CORPUSCULAR VOLUME 91 fL (80-99); PLATELET COUNT 171 10^3/uL (130-400); WHITE BLOOD COUNT 7.6 10^3/uL (4.3-11.0)
[2021-05-26 18:36] LABS: BASOPHILS % (AUTO) 0 % (0-10); EOSINOPHILS % (AUTO) 0 % (0-10); LYMPHOCYTES # (AUTO) 0.5 X 10^3 (1.0-4.0); LYMPHOCYTES % (AUTO) 7 % (12-44); MEAN PLATELET VOLUME 10.5 fL (9.0-12.2); MONOCYTES # (AUTO) 0.5 X 10^3 (0.0-1.0); MONOCYTES % (AUTO) 6 % (0-12); NEUTROPHILS # (AUTO) 6.6 X 10^3 (1.8-7.8); NEUTROPHILS % (AUTO) 86 % (42-75)
[2021-05-26 18:42] LABS: BACTERIA,URINE NEGATIVE /HPF; BILIRUBIN,URINE 2+ (NEGATIVE); CLARITY,URINE CLOUDY; COLOR,URINE RED; GLUCOSE, URINE (UA) NEGATIVE (NEGATIVE); KETONES,URINE 1+ (NEGATIVE); LEUKOCYTE ESTERASE ,URINE NEGATIVE (NEGATIVE); NITRITE,URINE POSITIVE (NEGATIVE); PROTEIN,URINE 2+ (NEGATIVE); RBC,URINE TNTC /HPF
[2021-05-26 18:52] LABS: BILIRUBIN,TOTAL 0.7 MG/DL (0.1-1.0); CALCIUM 9.4 MG/DL (8.5-10.1); CREATININE SERUM 1.26 MG/DL (0.60-1.30); POTASSIUM 3.9 MMOL/L (3.6-5.0); TOTAL PROTEIN 7.1 GM/DL (6.4-8.2)
[2021-05-26 19:01] LABS: EOSINOPHILS % (MANUAL) 1 %; LYMPHOCYTES % (MANUAL) 9 %; MONOCYTES % (MANUAL) 2 %; NEUTROPHILS % (MANUAL) 88 %
--- NOTE | 2021-05-26 19:33 | Diagnostic Imaging Report ---
CT abdomen/pelvis w/o TECHNIQUE: Unenhanced CT imaging of the abdomen and pelvis was performed. 2D reformats are created and submitted for interpretation. Automatic exposure controls were utilized to optimize patient dose. INDICATION: Hematuria with nausea and vomiting. COMPARISON: None available. FINDINGS: Evaluation of the abdominal viscera is mildly limited without contrast. Lower chest: The lung bases are clear. No pericardial or pleural effusion. Peritoneum: No free intraperitoneal air or fluid. Liver and biliary system: No concerning focal hepatic lesion. Cholecystectomy. Spleen and Pancreas: Spleen is normal. Unenhanced pancreas is grossly normal. Adrenals: Normal. tract: Mild right hydronephrosis is present. Induration on the right ureter is likely due to a partially obstructing 1 mm punctate stone in the distal ureter at the pelvic inlet. A nonobstructing 2 mm stone is present in lower pole of the right kidney. No left renal or ureteral stone. GI tract: Stomach is decompressed. No bowel obstruction. No pericolonic inflammatory changes. Normal appendix. Vasculature and Lymph nodes: Normal caliber aorta. No abdominal or pelvic lymphadenopathy. Musculoskeletal: No concerning osseous lesion. IMPRESSION: Mild right hydronephrosis due to a 1 mm partially obstructing stone in the distal right ureter. Dictated by: Dictated on workstation # [id number]
[2021-05-26] MEDS ORDERED: ONDA4TAB11 PO (19:52)
[2021-05-26 19:56] VITALS: BP 156/98
== END 2021-05-26 19:56 | disposition home or self-care (01) ==
LOC: EDUNIT# 18:17 → ER FS 18:18
DX: N13.2 Hydronephrosis with renal and ureteral calculous obstruction (principal); R00.0 Tachycardia, unspecified; G47.30 Sleep apnea, unspecified; I10 Essential (primary) hypertension; I48.91 Unspecified atrial fibrillation; K21.9 Gastro-esophageal reflux disease without esophagitis; F32.9 Major depressive disorder, single episode, unspecified; Z79.01 Long term (current) use of anticoagulants; Z79.899 Other long term (current) drug therapy
CPT/HCPCS: 74176; 80053; 81000; 83690; 85007; 86141; 87088

== ENCOUNTER → 2021-09-10 | Outpatient (CLI) | payer OTHER ==
[~2021-09-10] MED LIST changes: +ONDA4TAB11 PO
[2021-09-10 13:13] LABS: BASOPHILS % (AUTO) 1 % (0-10); EOSINOPHILS % (AUTO) 0 % (0-10); HEMATOCRIT 41 % (35-52); HEMOGLOBIN 13.2 g/dL (11.5-16.0); LYMPHOCYTES # (AUTO) 1.3 10^3/uL (1.0-4.0); LYMPHOCYTES % (AUTO) 17 % (12-44); MEAN CORPUSCULAR HEMOGLOBIN 31 pg (25-34); MEAN CORPUSCULAR HGB CONC 32 g/dL (32-36); MEAN CORPUSCULAR VOLUME 95 fL (80-99); MEAN PLATELET VOLUME 10.4 fL (9.0-12.2); MONOCYTES # (AUTO) 0.5 10^3/uL (0.0-1.0); MONOCYTES % (AUTO) 7 % (0-12); NEUTROPHILS # (AUTO) 5.8 10^3/uL (1.8-7.8); NEUTROPHILS % (AUTO) 75 % (42-75); PLATELET COUNT 250 10^3/uL (130-400); WHITE BLOOD COUNT 7.7 10^3/uL (4.3-11.0)
[2021-09-10 13:32] LABS: ALBUMIN 3.9 GM/DL (3.2-4.5); BILIRUBIN,TOTAL 0.8 MG/DL (0.1-1.0); CREATININE SERUM 1.06 MG/DL (0.60-1.30); POTASSIUM 3.7 MMOL/L (3.6-5.0); TOTAL PROTEIN 6.9 GM/DL (6.4-8.2)
== END ==
LOC: EDSTATUS 06-26 11:49 → ONC 13:00
PROVIDERS: ATTEND Internal Medicine Hematology & Oncology
DX: C73 Malignant neoplasm of thyroid gland (principal)
CPT/HCPCS: 80053; 84432; 84443; 85025; 86800; G0463; 36415; 99213

== ENCOUNTER → 2021-11-11 | Outpatient (CLI) | payer OTHER | LOC: CARD 13:30 | PROVIDERS: ATTEND Internal Medicine Cardiovascular Disease | DX: I08.3 Combined rheumatic disorders of mitral, aortic and tricuspid valves (principal); I11.9 Hypertensive heart disease without heart failure | CPT/HCPCS: 93306 ==

== ENCOUNTER → 2022-03-18 | Outpatient (CLI) | payer SELFPAY ==
[2022-03-18 13:23] LABS: BASOPHILS # (AUTO) 0.1 10^3/uL (0.0-0.1); BASOPHILS % (AUTO) 1 % (0-10); EOSINOPHILS # (AUTO) 0.1 10^3/uL (0.0-0.3); EOSINOPHILS % (AUTO) 1 % (0-10); HEMATOCRIT 42 % (35-52); HEMOGLOBIN 13.8 g/dL (11.5-16.0); LYMPHOCYTES # (AUTO) 0.8 10^3/uL (1.0-4.0); LYMPHOCYTES % (AUTO) 14 % (12-44); MEAN CORPUSCULAR HEMOGLOBIN 29 pg (25-34); MEAN CORPUSCULAR HGB CONC 33 g/dL (32-36); MEAN CORPUSCULAR VOLUME 90 fL (80-99); MONOCYTES # (AUTO) 0.4 10^3/uL (0.0-1.0); MONOCYTES % (AUTO) 7 % (0-12); NEUTROPHILS # (AUTO) 4.4 10^3/uL (1.8-7.8); NEUTROPHILS % (AUTO) 76 % (42-75); PLATELET COUNT 184 10^3/uL (130-400); WHITE BLOOD COUNT 5.8 10^3/uL (4.3-11.0)
[2022-03-18 13:48] LABS: ALBUMIN 3.9 GM/DL (3.2-4.5); CALCIUM 9.2 MG/DL (8.5-10.1); CREATININE SERUM 1.22 MG/DL (0.60-1.30); POTASSIUM 3.7 MMOL/L (3.6-5.0); TOTAL PROTEIN 7.2 GM/DL (6.4-8.2)
== END ==
LOC: ONC 12:46
PROVIDERS: ATTEND Internal Medicine Hematology & Oncology
DX: C73 Malignant neoplasm of thyroid gland (principal); I10 Essential (primary) hypertension; E66.01 Morbid (severe) obesity due to excess calories
CPT/HCPCS: 36415; 80053; 84432; 84443; 85025; 86800

== ENCOUNTER → 2022-10-08 | Outpatient (CLI) | payer SELFPAY | LOC: ONC 10:57 | PROVIDERS: ATTEND Internal Medicine Hematology & Oncology | DX: C73 Malignant neoplasm of thyroid gland (principal) ==

== ENCOUNTER → 2023-04-01 | Outpatient (CLI) | payer SELFPAY | LOC: ONC 13:17 | PROVIDERS: ATTEND Internal Medicine Hematology & Oncology | DX: C73 Malignant neoplasm of thyroid gland (principal); I10 Essential (primary) hypertension; I66.01 Occlusion and stenosis of right middle cerebral artery; Z86.73 Personal history of transient ischemic attack (TIA), and cerebral infarction without residual deficits; Z92.3 Personal history of irradiation; Z90.89 Acquired absence of other organs | CPT/HCPCS: 99214 ==